=== PATIENT | male | born 1985 | race African-American/Black ===

== ENCOUNTER 2017-08-17 18:14 | Inpatient (IN) | payer OTHER ==
[2017-08-17 18:32] VITALS: BMI 25.2
[2017-08-17] MEDS ORDERED: MELATONIN 5 MG TABLETS PO PRN (22:00)
--- NOTE | 2017-08-17 22:36 | HP ---
CIWA Score - CIWA Score Nausea/Vomitin-Mild Nausea/No Vomiting Muscle Tremors: 4-Moderate,w/Arms Extend Anxiety: 4-Mod. Anxious/Guarded Agitation: 4-Moderately Restless Paroxysmal Sweats: No Perspiration Orientation: 0-Oriented Tacttile Disturbances: 0-None Auditory Disturbances: 0-None Visual Disturbances: 0-None Headache: 3-Moderate CIWA-Ar Total Score: 16 Admission ROS S - HPI Chief Complaint: Alcohol withdrawal symptoms Allergies/Adverse Reactions: Allergies Allergy/AdvReac Type Severity Reaction Status Date / Time No Known Allergies Allergy Verified 08/17/17 22:01 History of Present Illness: 31 years old m oliver with a long history of alcohol dependence is seeking admission to detox. Patient has been in previous detox at [facility] and reports 3 years of sobriety. He has medical history of depression, reports feeling anxious and denies suicide attempt or suicidal ideation at this time. Exam Limitations: No Limitations - Ebola screening Have you traveled outside of the country in the last 21 days: No Have you had contact with anyone from an Ebola affected area: No Have you been sick,other than usual withdrawal symptoms: No - Review of Systems Constitutional: Chills, Malaise, Night Sweats, Changes in sleep EENT: reports: No Symptoms Reported Respiratory: reports: No Symptoms reported Cardiac: reports: No Symptoms Reported GI: reports: Nausea, Poor Appetite, Poor Fluid Intake, Abdominal cramping : reports: No Symptoms Reported Musculoskeletal: reports: No Symptoms Reported Integumentary: reports: No Symptoms Reported Neuro: reports: Headache, Tingling, Tremors Endocrine: reports: No Symptoms Reported Hematology: reports: No Symptoms Reported Psychiatric: reports: Orientated x3, Anxious, Depressed Other Systems: Reviewed and Negative Patient History - Patient Medical History Hx Anemia: No Hx Asthma: No Hx Chronic Obstructive Pulmonary Disease (COPD): No Hx Cancer: No Hx Cardiac Disorders: No Hx Congestive Heart Failure: No Hx Hypertension: No Hx Hypercholesterolemia: No HX Cerebrovascular Accident: No Hx Seizures: No Hx Diabetes: No Hx Gastrointestinal Disorders: No Hx Sexually Transmitted Disorders: No Hx Renal Disease (ESRD): No Hx Thyroid Disease: No Hx Human Immunodeficiency Virus (HIV): No (Negative 2013) Hx Hepatitis C: No Hx Depression: Yes (Not on medication) Hx Suicide Attempt: No (Denies suicide attempt and suicidal ideation at this time) Hx Bipolar Disorder: No Hx Schizophrenia: No - Patient Surgical History Past Surgical History: No - PPD History Previous Implant?: No (PPD POSITVE. 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 History Hx Alcohol Use: Yes Hx Substance Use: Yes Substance Use Type: Alcohol, Cocaine, Marijuana Hx Substance Use Treatment: Yes ([facility]) - Substances Abused Alcohol Route: Oral Frequency: Daily Amount used: 2 PINT LIQUOR, 2/40oz BEER Age of first use: 14 Date of Last Use: 08/17/17 Cocaine Route: Oral Frequency: Daily Amount used: 1 1/2 GRAM Age of first use: 20 Date of Last Use: 08/17/17 Marijuana/Hashish Route: Smoking Frequency: 3-6 times per week Amount used: $10 Age of first use: 14 Date of Last Use: 08/15/17 Family Disease History - Family Disease History Family History: Denies Admission Physical Exam [facility] - Vital Signs Vital Signs: Vital Signs - 24 hr 08/17/17 18:31 Temperature 97.7 F Pulse Rate 77 Respiratory 18 Rate Blood Pressure 127/77 - Physical General Appearance: Yes: Moderate Distress, Tremorous, Irritable, Sweating, Anxious HEENTM: Yes: EOMI, Normal ENT Inspection, Normal Voice Respiratory: Yes: Lungs Clear, Normal Breath Sounds, No Respiratory Distress Neck: Yes: Supple Breast: Yes: Breast Exam Deferred Cardiology: Yes: Regular Rhythm, Regular Rate, S1, S2 Abdominal: Yes: Normal Bowel Sounds, Soft Genitourinary: Yes: Within Normal Limits Back: Yes: Normal Inspection Musculoskeletal: Yes: Within Normal Limits Extremities: Yes: Tremors Neurological: Yes: Alert, Normal Mood/Affect Integumentary: Yes: Warm Lymphatic: Yes: Within Normal Limits - Diagnostic (1) Alcohol dependence with uncomplicated withdrawal Current Visit: Yes Status: Chronic (2) Depression Current Visit: Yes Status: Chronic Qualifiers: Depression Type: unspecified Qualified Code(s): F32.9 - Major depressive disorder, single episode, unspecified (3) Anxiety Current Visit: Yes Status: Chronic (4) Cannabis dependence, uncomplicated Current Visit: Yes Status: Chronic (5) Cocaine dependence, uncomplicated Current Visit: Yes Status: Chronic Cleared for Admission [facility] - Detox or Rehab [facility] Level of Care: Medically Managed Detox Regimen/Protocol: Librium [facility] Breath Alcohol Content Breath Alcohol Content: 0.022 Urine Drug Screen - Results Drug Screen Negative: No Urine Drug Screen Results: THC-Marijuana, HEATHER-Cocaine
[2017-08-17] MEDS ORDERED: P-EPHED 60MG/TRIPROLIDI 2.5MG TABLET PO PRN (22:48)
[2017-08-17] MEDS ORDERED: LOPERAMIDE HCL 2 MG CAPSULE PO PRN (22:48)
[2017-08-17] MEDS ORDERED: MAGNESIUM CITRATE 300 ML BOTTLE PO PRN (22:48)
[2017-08-17] MEDS ORDERED: MAG HYDROX/AL HYDROX/SIMETH 30 ML UNIT-DOSE CUP PO PRN (22:48)
[2017-08-17] MEDS ORDERED: guaiFENesin/D-METHORPHAN HB 10 ML UNIT-DOSE CUPS PO PRN (22:48)
[2017-08-17] MEDS ORDERED: MAGNESIUM HYDROX 2400MG/30ML ORAL SUSPENSION 30 ML CUP PO PRN (22:48)
[2017-08-17] MEDS ORDERED: NICOTINE POLACRILEX 2 MG GUM BC PRN (22:48)
[2017-08-17] MEDS ORDERED: IBUPROFEN 400 MG TABLET (FP) PO PRN (22:48)
[2017-08-17] MEDS ORDERED: MENTHOL/PHENOL 1 EACH UD MM PRN (22:48)
[2017-08-17] MEDS ORDERED: ACETAMINOPHEN 325 MG TABLET (FP) PO PRN (22:48)
[2017-08-17] MEDS ORDERED: chlordiazePOXIDE HCL 25 MG CAPSULE PO PRN (22:48)
[2017-08-17] MEDS: chlordiazePOXIDE HCL 25 MG CAPSULE PO SCH (23:31)
[2017-08-18 03:36] LABS: URINE APPEARANCE TURBID; URINE BILIRUBIN NEGATIVE (<2.0 mg/dL); URINE BLOOD 1+ (NEGATIVE); URINE COLOR YELLOW; URINE GLUCOSE (UA) NEGATIVE (NEGATIVE); URINE KETONE NEGATIVE (NEGATIVE); URINE LEUK ESTERASE NEGATIVE (NEGATIVE); URINE NITRITE NEGATIVE (NEGATIVE)
[2017-08-18 03:45] LABS: URINE PROTEIN 1+ (NEGATIVE)
[2017-08-18 03:48] LABS: URINE MUCUS MODERATE
[2017-08-18] MEDS: chlordiazePOXIDE HCL 25 MG CAPSULE PO SCH ×4 (05:53→22:42)
[2017-08-18] MEDS: NICOTINE 14 MG/24 HOURS TOPICAL PATCH TD SCH (10:21)
[2017-08-18] MEDS: PRENATAL VITAMINS W/ FOLIC ACID TABLET (FP) PO SCH (10:21)
[2017-08-18 10:26] LABS: HEMATOCRIT 38.7 % (35.4-49); HEMOGLOBIN 12.9 GM/dL (11.7-16.9); MCH 30.6 pg (25.7-33.7); MCHC 33.4 g/dl (32.0-35.9); MEAN CELL VOLUME 91.6 fl (80-96); PLATELET COUNT 263 K/MM3 (134-434); RBC 4.23 M/mm3 (4.00-5.60); RDW 14.9 % (11.9-15.9); WHITE BLOOD COUNT 5.3 K/mm3 (4.0-10.0)
[2017-08-18 11:58] LABS: ALK PHOS 56 U/L (45-117); ANION GAP 6 (8-16); BILIRUBIN,TOTAL 0.4 mg/dL (0.2-1.0); BLOOD UREA NITROGEN 19 mg/dL (7-18); CALCIUM 8.5 mg/dL (8.5-10.1); CHLORIDE 106 mmol/L (98-107); CO2 29 mmol/L (21-32); CREATININE 0.9 mg/dL (0.7-1.3); GLUCOSE,RANDOM 98 mg/dL (74-106); POTASSIUM 3.6 mmol/L (3.5-5.1); SGOT/AST 42 U/L (15-37); SGPT/ALT 30 U/L (12-78); SODIUM 141 mmol/L (136-145); TOT PROT 5.9 g/dl (6.4-8.2)
--- NOTE | 2017-08-18 12:59 | PN ---
[facility] CIWA - CIWA Score Nausea/Vomitin-No Nausea/No Vomiting Muscle Tremors: 4-Moderate,w/Arms Extend Anxiety: 3 Agitation: 3 Paroxysmal Sweats: 3 Orientation: 2-Disoriented Date<2 days Tacttile Disturbances: 0-None Auditory Disturbances: 2-Mild Harshness/Frighten Visual Disturbances: 0-None Headache: 0-None Present CIWA-Ar Total Score: 17 BHS Progress Note (SOAP) Subjective: Stomach Cramping, Tremors, Body Aches, Sweating. Objective: PATIENT A & O X 2 (UNCERTAIN ABOUT CURRENT DAY / DATE). PATIENT OBSERVED AMBULATING ON UNIT. NO ACUTE DISTRESS. 08/18/17 12:57 Vital Signs Temperature 96.4 F L 08/18/17 09:12 Pulse Rate 63 08/18/17 09:12 Respiratory Rate 16 08/18/17 09:12 Blood Pressure 100/62 08/18/17 09:12 O2 Sat by Pulse Oximetry (%) Laboratory Tests 08/17/17 08/18/17 08/18/17 23:14 07:30 07:30 WBC 5.3 RBC 4.23 Hgb 12.9 Hct 38.7 MCV 91.6 MCH 30.6 MCHC 33.4 RDW 14.9 Plt Count 263 MPV 9.0 Sodium 141 Potassium 3.6 Chloride 106 Carbon Dioxide 29 Anion Gap 6 L BUN 19 H Creatinine 0.9 Creat Clearance w eGFR > 60 Random Glucose 98 Calcium 8.5 Total Bilirubin 0.4 AST 42 H ALT 30 Alkaline Phosphatase 56 Total Protein 5.9 L Albumin 3.0 L Urine Color Yellow Urine Appearance Turbid Urine pH 5.0 Ur Specific [place] 1.032 Urine Protein 1+ H Urine Glucose (UA) Negative Urine Ketones Negative Urine Blood 1+ H Urine Nitrite Negative Urine Bilirubin Negative Urine Urobilinogen 2.0 Ur Leukocyte Esterase Negative Urine WBC (Auto) None Urine RBC (Auto) 9 Urine Mucus Moderate RPR Titer 08/18/17 07:30 WBC RBC Hgb Hct MCV MCH MCHC RDW Plt Count MPV Sodium Potassium Chloride Carbon Dioxide Anion Gap BUN Creatinine Creat Clearance w eGFR Random Glucose Calcium Total Bilirubin AST ALT Alkaline Phosphatase Total Protein Albumin Urine Color Urine Appearance Urine pH Ur Specific [place] Urine Protein Urine Glucose (UA) Urine Ketones Urine Blood Urine Nitrite Urine Bilirubin Urine Urobilinogen Ur Leukocyte Esterase Urine WBC (Auto) Urine RBC (Auto) Urine Mucus RPR Titer Nonreactive LABS NOTED. Assessment: 08/18/17 12:57 WITHDRAWAL SYMPTOMS. Plan: CONTINUE DETOX. INCREASE DAILY PO FLUID INTAKE. REPEAT UA.
--- NOTE | 2017-08-18 14:38 | CONSULT ---
[facility] Psychiatric Consult - Data Date of interview: 08/18/17 Admission source: [facility] Identifying data: First admission to [facility] for this 31 y/o male ( declines to disclose country of origin) seeking detox treatment on for alcohol,cannabis and cocaine dependence.Patient is single without children, domiciled,unemployed and supported by relatives. Substance Abuse History: Confirmed by patient in this interview.Details in current [facility] report : Smoking history: Current some day smoker. Have you smoked in the past 12 months: Yes. Aproximately how many cigarettes per day: 4. Hx Chewing Tobacco Use: No. Initiated information on smoking cessation: Yes. ' Breaking Loose' booklet given: 08/17/17. - Substance & Tx. History. Hx Alcohol Use: Yes. Hx Substance Use: Yes. Substance Use Type: Alcohol, Cocaine , Marijuana. Hx Substance Use Treatment: Yes ([facility]). - Substances Abused. Alcohol. Route: Oral. Frequency: Daily. Amount used: 2 PINT LIQUOR, 2/40oz BEER. Age of first use: 14. Date of Last Use: . Cocaine. Route: Oral. Frequency: Daily. Amount used: 1 1/2 GRAM. Age of first use: 20. Date of Last Use: 08/17/17. Marijuana/Hashish. Route : Smoking. Frequency: 3-6 times per week. Amount used: $10. Age of first use : 14. Date of Last Use: 08/15/17 Medical History: Patient endorses good general health.Noted history of treatment with [facility] (positive PPD) for 12 months. Psychiatric History: Patient denies. Physical/Sexual Abuse/Trauma History: Patient denies. Additional Comment: Urine Drug Screen Results: THC-Marijuana, HEATHER-Cocaine.Noted. Mental Status Exam - Mental Status Exam Alert and Oriented to: Time, Place, Person Cognitive Function: Good Patient Appearance: Well Groomed Mood: Withdrawn, Hopeful, Euthymic Affect: Appropriate, Normal Range Patient Behavior: Fatigued, Appropriate, Cooperative Speech Pattern: Clear (bilingual : swedish + amharic), Appropriate Voice Loudness: Normal Thought Process: Intact, Goal Oriented Thought Disorder: Not Present Hallucinations: Denies Suicidal Ideation: Denies Homicidal Ideation: Denies Insight/Judgement: Poor Sleep: Poorly, Difficulty falling asleep Appetite: Good Muscle strength/Tone: Normal Gait/Station: Normal Psychiatric Findings - Problem List ([place] 1, 2,3) (1) Alcohol dependence with uncomplicated withdrawal Current Visit: Yes Status: Acute (2) Cannabis dependence, uncomplicated Current Visit: Yes Status: Acute (3) Cocaine dependence, uncomplicated Current Visit: Yes Status: Acute (4) Nicotine dependence Current Visit: Yes Status: Acute (5) Insomnia Current Visit: Yes Status: Acute - Initial Treatment Plan Initial Treatment Plan: Psychoeducation.Sleep hygiene discussed.Detoxification in progress.Ambien 10 mg po hs prn.Patient is made aware of risk of parasomnias (sleep-walking).Mr Rowell agrees with this careplan.Observation.
--- NOTE | 2017-08-18 16:27 | EKG ---
Test Reason : Blood Pressure : / mmHG Vent. Rate : 060 BPM Atrial Rate : 060 BPM P-R Int : 210 ms QRS Dur : 078 ms QT Int : 428 ms P-R-T Axes : -19 -20 -09 degrees QTc Int : 428 ms SINUS RHYTHM WITH SINUS ARRHYTHMIA WITH 1ST DEGREE A-V BLOCK OTHERWISE NORMAL ECG NO PREVIOUS ECGS AVAILABLE Confirmed by MD YVROSE, JAN ([id number]) on 08/18/2017 4:26:42 PM Referred By: Confirmed By:JAN FRANCES MD
[2017-08-18] MEDS: THIAMINE HCL 100 MG TABLET (FP) PO SCH (22:42)
[2017-08-18] MEDS: ZOLPIDEM TARTRATE 10 MG TABLET (PARK CARE ONLY) PO PRN (22:42)
[2017-08-19] MEDS: chlordiazePOXIDE HCL 25 MG CAPSULE PO SCH ×3 (05:43→17:29)
[2017-08-19] MEDS: NICOTINE 14 MG/24 HOURS TOPICAL PATCH TD SCH (10:43)
[2017-08-19] MEDS: PRENATAL VITAMINS W/ FOLIC ACID TABLET (FP) PO SCH (10:43)
--- NOTE | 2017-08-19 13:32 | PN ---
[facility] CIWA - CIWA Score Nausea/Vomitin-No Nausea/No Vomiting Muscle Tremors: 4-Moderate,w/Arms Extend Anxiety: 4-Mod. Anxious/Guarded Agitation: 4-Moderately Restless Paroxysmal Sweats: 1-Minimal Palms Moist Orientation: 0-Oriented Tacttile Disturbances: 0-None Auditory Disturbances: 0-None Visual Disturbances: 0-None Headache: 0-None Present CIWA-Ar Total Score: 13 S Progress Note (SOAP) Subjective: ANXIETY,SWEATS,TREMORS. Objective: 08/19/17 13:32 Vital Signs Temperature 97.2 F L 08/19/17 10:57 Pulse Rate 75 08/19/17 10:57 Respiratory Rate 18 08/19/17 10:57 Blood Pressure 123/70 08/19/17 10:57 O2 Sat by Pulse Oximetry (%) Laboratory Last Values WBC 5.3 K/mm3 (4.0-10.0) 08/18/17 07:30 RBC 4.23 M/mm3 (4.00-5.60) 08/18/17 07:30 Hgb 12.9 GM/dL (11.7-16.9) 08/18/17 07:30 Hct 38.7 % (35.4-49) 08/18/17 07:30 MCV 91.6 fl (80-96) 08/18/17 07:30 MCH 30.6 pg (25.7-33.7) 08/18/17 07:30 MCHC 33.4 g/dl (32.0-35.9) 08/18/17 07:30 RDW 14.9 % (11.9-15.9) 08/18/17 07:30 Plt Count 263 K/MM3 (134-434) 08/18/17 07:30 MPV 9.0 fl (7.5-11.1) 08/18/17 07:30 Sodium 141 mmol/L (136-145) 08/18/17 07:30 Potassium 3.6 mmol/L (3.5-5.1) 08/18/17 07:30 Chloride 106 mmol/L (98-107) 08/18/17 07:30 Carbon Dioxide 29 mmol/L (21-32) 08/18/17 07:30 Anion Gap 6 (8-16) L 08/18/17 07:30 BUN 19 mg/dL (7-18) H 08/18/17 07:30 Creatinine 0.9 mg/dL (0.7-1.3) 08/18/17 07:30 Creat Clearance w eGFR > 60 (>60) 08/18/17 07:30 Random Glucose 98 mg/dL (74-106) 08/18/17 07:30 Calcium 8.5 mg/dL (8.5-10.1) 08/18/17 07:30 Total Bilirubin 0.4 mg/dL (0.2-1.0) 08/18/17 07:30 AST 42 U/L (15-37) H 08/18/17 07:30 ALT 30 U/L (12-78) 08/18/17 07:30 Alkaline Phosphatase 56 U/L (45-117) 08/18/17 07:30 Total Protein 5.9 g/dl (6.4-8.2) L 08/18/17 07:30 Albumin 3.0 g/dl (3.4-5.0) L 08/18/17 07:30 Urine Color Yellow 08/17/17 23:14 Urine Appearance Turbid 08/17/17 23:14 Urine pH 5.0 (5.0-8.0) 08/17/17 23:14 Ur Specific [place] 1.032 (1.001-1.035) 08/17/17 23:14 Urine Protein 1+ (NEGATIVE) H 08/17/17 23:14 Urine Glucose (UA) Negative (NEGATIVE) 08/17/17 23:14 Urine Ketones Negative (NEGATIVE) 08/17/17 23:14 Urine Blood 1+ (NEGATIVE) H 08/17/17 23:14 Urine Nitrite Negative (NEGATIVE) 08/17/17 23:14 Urine Bilirubin Negative (<2.0 mg/dL) 08/17/17 23:14 Urine Urobilinogen 2.0 mg/dL (0.2-1.0) 08/17/17 23:14 Ur Leukocyte Esterase Negative (NEGATIVE) 08/17/17 23:14 Urine WBC (Auto) None /hpf (3-5) 08/17/17 23:14 Urine RBC (Auto) 9 /hpf (0-3) 08/17/17 23:14 Urine Mucus Moderate 08/17/17 23:14 RPR Titer Nonreactive (NONREACTIVE) 08/18/17 07:30 Assessment: 08/19/17 13:32 WITHDRAWAL SX Plan: CONTINUE DETOX
[2017-08-19] MEDS: THIAMINE HCL 100 MG TABLET (FP) PO SCH (22:21)
[2017-08-19] MEDS: chlordiazePOXIDE 5 MG CAPSULE PO SCH (22:21)
[2017-08-19] MEDS: ZOLPIDEM TARTRATE 10 MG TABLET (PARK CARE ONLY) PO PRN (22:23)
[2017-08-20] MEDS: chlordiazePOXIDE 5 MG CAPSULE PO SCH ×3 (05:40→17:31)
[2017-08-20] MEDS: PRENATAL VITAMINS W/ FOLIC ACID TABLET (FP) PO SCH (10:29)
[2017-08-20] MEDS: NICOTINE 14 MG/24 HOURS TOPICAL PATCH TD SCH (10:30)
[2017-08-20] MEDS ORDERED: LIDOCAINE VISCOUS 2% ORAL/TOP 20 ML UNIT-DOSE CUP MM PRN (12:37)
[2017-08-20] MEDS: AMOXICILLIN 500 MG CAPSULE (FP) PO SCH ×2 (14:16→22:20)
--- NOTE | 2017-08-20 14:48 | PN ---
S Progress Note (SOAP) Subjective: ALERT O X 3. OOB AMBULATING ON HALLWAYS WITH STEADY GAIT. PT C/O PAIN TO LEFT UPPER MOLARS. HX CAVITIES AND TOOTH DECAY. REPORTS WILL GO TO THE DENTIST TO TAKE IT OUT AFTER DETOX. Objective: 08/20/17 14:44 Vital Signs Temperature 97.7 F 08/20/17 13:56 Pulse Rate 68 08/20/17 13:56 Respiratory Rate 18 08/20/17 13:56 Blood Pressure 113/74 08/20/17 13:56 O2 Sat by Pulse Oximetry (%) Laboratory Last Values WBC 5.3 K/mm3 (4.0-10.0) 08/18/17 07:30 RBC 4.23 M/mm3 (4.00-5.60) 08/18/17 07:30 Hgb 12.9 GM/dL (11.7-16.9) 08/18/17 07:30 Hct 38.7 % (35.4-49) 08/18/17 07:30 MCV 91.6 fl (80-96) 08/18/17 07:30 MCH 30.6 pg (25.7-33.7) 08/18/17 07:30 MCHC 33.4 g/dl (32.0-35.9) 08/18/17 07:30 RDW 14.9 % (11.9-15.9) 08/18/17 07:30 Plt Count 263 K/MM3 (134-434) 08/18/17 07:30 MPV 9.0 fl (7.5-11.1) 08/18/17 07:30 Sodium 141 mmol/L (136-145) 08/18/17 07:30 Potassium 3.6 mmol/L (3.5-5.1) 08/18/17 07:30 Chloride 106 mmol/L (98-107) 08/18/17 07:30 Carbon Dioxide 29 mmol/L (21-32) 08/18/17 07:30 Anion Gap 6 (8-16) L 08/18/17 07:30 BUN 19 mg/dL (7-18) H 08/18/17 07:30 Creatinine 0.9 mg/dL (0.7-1.3) 08/18/17 07:30 Creat Clearance w eGFR > 60 (>60) 08/18/17 07:30 Random Glucose 98 mg/dL (74-106) 08/18/17 07:30 Calcium 8.5 mg/dL (8.5-10.1) 08/18/17 07:30 Total Bilirubin 0.4 mg/dL (0.2-1.0) 08/18/17 07:30 AST 42 U/L (15-37) H 08/18/17 07:30 ALT 30 U/L (12-78) 08/18/17 07:30 Alkaline Phosphatase 56 U/L (45-117) 08/18/17 07:30 Total Protein 5.9 g/dl (6.4-8.2) L 08/18/17 07:30 Albumin 3.0 g/dl (3.4-5.0) L 08/18/17 07:30 Urine Color Yellow 08/17/17 23:14 Urine Appearance Turbid 08/17/17 23:14 Urine pH 5.0 (5.0-8.0) 08/17/17 23:14 Ur Specific [place] 1.032 (1.001-1.035) 08/17/17 23:14 Urine Protein 1+ (NEGATIVE) H 08/17/17 23:14 Urine Glucose (UA) Negative (NEGATIVE) 08/17/17 23:14 Urine Ketones Negative (NEGATIVE) 08/17/17 23:14 Urine Blood 1+ (NEGATIVE) H 08/17/17 23:14 Urine Nitrite Negative (NEGATIVE) 08/17/17 23:14 Urine Bilirubin Negative (<2.0 mg/dL) 08/17/17 23:14 Urine Urobilinogen 2.0 mg/dL (0.2-1.0) 08/17/17 23:14 Ur Leukocyte Esterase Negative (NEGATIVE) 08/17/17 23:14 Urine WBC (Auto) None /hpf (3-5) 08/17/17 23:14 Urine RBC (Auto) 9 /hpf (0-3) 08/17/17 23:14 Urine Mucus Moderate 08/17/17 23:14 RPR Titer Nonreactive (NONREACTIVE) 08/18/17 07:30 SWELLING TO UPPERCHEEK/JAW. PAIN ON PALPATION . TEETH DECAYED AND EXPOSED. Assessment: 08/20/17 14:44 WITHDRAWAL SX TOOTH ABSCESS Plan: CONTINUE DETOX AMOXICILLIN 500 MG PO TID LIDOCAINE SWISH DIRECTED.
[2017-08-20] MEDS: chlordiazePOXIDE HCL 10 MG CAPSULE PO SCH (22:20)
[2017-08-20] MEDS: THIAMINE HCL 100 MG TABLET (FP) PO SCH (22:20)
[2017-08-21 06:17] VITALS: BP 105/66; PULSE 70; TEMP 96.6
[2017-08-21] MEDS: AMOXICILLIN 500 MG CAPSULE (FP) PO SCH (06:23)
[2017-08-21] MEDS: chlordiazePOXIDE HCL 10 MG CAPSULE PO SCH (06:23)
--- NOTE | 2017-08-21 17:12 | PN ---
BHS Progress Note (SOAP) Subjective: Patient denies current Detox symptoms and reports that he feels well overall. Objective: PATIENT A & O X 3, OBSERVED AMBULATING ON UNIT. NO ACUTE DISTRESS. 08/21/17 17:11 Vital Signs Temperature 96.6 F L 08/21/17 06:17 Pulse Rate 70 08/21/17 06:17 Respiratory Rate 18 08/21/17 06:17 Blood Pressure 105/66 08/21/17 06:17 O2 Sat by Pulse Oximetry (%) Laboratory Tests 08/17/17 08/18/17 08/18/17 23:14 07:30 07:30 WBC 5.3 RBC 4.23 Hgb 12.9 Hct 38.7 MCV 91.6 MCH 30.6 MCHC 33.4 RDW 14.9 Plt Count 263 MPV 9.0 Sodium 141 Potassium 3.6 Chloride 106 Carbon Dioxide 29 Anion Gap 6 L BUN 19 H Creatinine 0.9 Creat Clearance w eGFR > 60 Random Glucose 98 Calcium 8.5 Total Bilirubin 0.4 AST 42 H ALT 30 Alkaline Phosphatase 56 Total Protein 5.9 L Albumin 3.0 L Urine Color Yellow Urine Appearance Turbid Urine pH 5.0 Ur Specific [place] 1.032 Urine Protein 1+ H Urine Glucose (UA) Negative Urine Ketones Negative Urine Blood 1+ H Urine Nitrite Negative Urine Bilirubin Negative Urine Urobilinogen 2.0 Ur Leukocyte Esterase Negative Urine WBC (Auto) None Urine RBC (Auto) 9 Urine Mucus Moderate RPR Titer 08/18/17 07:30 WBC RBC Hgb Hct MCV MCH MCHC RDW Plt Count MPV Sodium Potassium Chloride Carbon Dioxide Anion Gap BUN Creatinine Creat Clearance w eGFR Random Glucose Calcium Total Bilirubin AST ALT Alkaline Phosphatase Total Protein Albumin Urine Color Urine Appearance Urine pH Ur Specific [place] Urine Protein Urine Glucose (UA) Urine Ketones Urine Blood Urine Nitrite Urine Bilirubin Urine Urobilinogen Ur Leukocyte Esterase Urine WBC (Auto) Urine RBC (Auto) Urine Mucus RPR Titer Nonreactive LABS NOTED. Assessment: 08/21/17 17:22 COMPLETION OF DETOX REGIMEN. Plan: PATIENT SCHEDULED FOR DISCHARGE FROM DETOX TODAY.
--- NOTE | 2017-08-21 17:29 | DS ---
[facility] Detox Discharge Summary Admission Date: 08/17/17 Discharge Date: 08/21/17 - History Present History: Alcohol Dependence, Cannabis Dependence, Cocaine Dependence Additional Comments: PATIENT GOING TO [facility] ([place], [place] FOR AFTERCARE. PRESCRIPTION FOR REMAINDER OF COURSE OF AUGMENTIN STARTED FOR DENTAL ABSCESS WHILE PATIENT WAS ADMITTED FOR DETOX SENT TO [facility] ( [facility] FOR PATIENT TO CHIEF MATE FOR FOLLOW-UP AFTERCARE. PATIENT ADVISED TO FOLLOW-UP WITH DENTIST AFTER DISCHARGE FROM DETOX FOR FURTHER EVALUATION OF DENTAL ABSCESS. PATIENT WAS DISCHARGED FROM DETOX UNIT IN STABLE MEDICAL CONDITION. Pertinent Past History: Depression, Anxiety, Insomnia, Nicotine Dependence. - Physical Exam Results Vital Signs: Vital Signs Temperature 96.6 F L 08/21/17 06:17 Pulse Rate 70 08/21/17 06:17 Respiratory Rate 18 08/21/17 06:17 Blood Pressure 105/66 08/21/17 06:17 O2 Sat by Pulse Oximetry (%) Pertinent Admission Physical Exam Findings: WITHDRAWAL SYMPTOMS. Laboratory Tests 08/17/17 08/18/17 08/18/17 23:14 07:30 07:30 WBC 5.3 RBC 4.23 Hgb 12.9 Hct 38.7 MCV 91.6 MCH 30.6 MCHC 33.4 RDW 14.9 Plt Count 263 MPV 9.0 Sodium 141 Potassium 3.6 Chloride 106 Carbon Dioxide 29 Anion Gap 6 L BUN 19 H Creatinine 0.9 Creat Clearance w eGFR > 60 Random Glucose 98 Calcium 8.5 Total Bilirubin 0.4 AST 42 H ALT 30 Alkaline Phosphatase 56 Total Protein 5.9 L Albumin 3.0 L Urine Color Yellow Urine Appearance Turbid Urine pH 5.0 Ur Specific [place] 1.032 Urine Protein 1+ H Urine Glucose (UA) Negative Urine Ketones Negative Urine Blood 1+ H Urine Nitrite Negative Urine Bilirubin Negative Urine Urobilinogen 2.0 Ur Leukocyte Esterase Negative Urine WBC (Auto) None Urine RBC (Auto) 9 Urine Mucus Moderate RPR Titer 08/18/17 07:30 WBC RBC Hgb Hct MCV MCH MCHC RDW Plt Count MPV Sodium Potassium Chloride Carbon Dioxide Anion Gap BUN Creatinine Creat Clearance w eGFR Random Glucose Calcium Total Bilirubin AST ALT Alkaline Phosphatase Total Protein Albumin Urine Color Urine Appearance Urine pH Ur Specific [place] Urine Protein Urine Glucose (UA) Urine Ketones Urine Blood Urine Nitrite Urine Bilirubin Urine Urobilinogen Ur Leukocyte Esterase Urine WBC (Auto) Urine RBC (Auto) Urine Mucus RPR Titer Nonreactive LABS NOTED. - Treatment Hospital Course: Detox Protocol Followed, Detoxed Safely, Responded well, Discharged Condition Good Patient has Accepted a Rehab Referral to: PT GOING TO [facility] ([place], [place] - Medication Discharge Medications: Ambulatory Orders Amoxicillin - [Amoxicillin 500mg Capsule -] 500 mg PO TID 7 Days #21 capsule - Diagnosis (1) Alcohol dependence with uncomplicated withdrawal Status: Acute (2) Anxiety Status: Chronic (3) Cannabis dependence, uncomplicated Status: Acute (4) Cocaine dependence, uncomplicated Status: Acute (5) Depression Status: Chronic Qualifiers: Depression Type: unspecified Qualified Code(s): F32.9 - Major depressive disorder, single episode, unspecified (6) Insomnia Status: Acute Qualifiers: Insomnia type: unspecified Qualified Code(s): G47.00 - Insomnia, unspecified (7) Nicotine dependence Status: Acute Qualifiers: Nicotine product type: cigarettes Substance use status: in withdrawal Qualified Code(s): F17.213 - Nicotine dependence, cigarettes, with withdrawal (8) Tooth abscess Status: Acute - AMA Did Patient Leave Against Medical Advice: No
== END 2017-08-21 09:09 | disposition home or self-care (01) | DRG 774 ==
LOC: YASAS 18:14 → Y3N 21:24
PROVIDERS: ADMIT Internal Medicine; ATTEND Internal Medicine
PROC: HZ2ZZZZ Detoxification Services for Substance Abuse Treatment (ICD-10-PCS; principal; 2017-08-17)
DX: F10.230 Alcohol dependence with withdrawal, uncomplicated (principal); F14.20 Cocaine dependence, uncomplicated; F12.20 Cannabis dependence, uncomplicated; F17.213 Nicotine dependence, cigarettes, with withdrawal; F32.9 Major depressive disorder, single episode, unspecified; F41.9 Anxiety disorder, unspecified; G47.00 Insomnia, unspecified; K04.7 Periapical abscess without sinus; Z59.0 Homelessness
CPT/HCPCS: 36415; 71046-TC-FY; 80053; 81003; 81015; 85027; 86593; 93005; 93010

== ENCOUNTER 2019-11-14 14:43 | Inpatient (IN) | payer OTHER ==
--- NOTE | 2019-11-14 15:05 | BHS.RME ---
Substance Use & Tx History - Substance Use History Alcohol Substance amount: 2/5 Vodka Frequency of use: Daily Substance route: Oral Date of Last Use: 11/14/19 (First use: age 13 y. No seizure. Blackouts, last blackout one month ago. 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) Cocaine-Crack Substance amount: one gram Frequency of use: More than 3 times per week Substance route: Smoking Date of Last Use: 11/13/19 (First use age 23 y) Cannabis Substance amount: one joint Frequency of use: Less than 3 times per week Substance route: Smoking Date of Last Use: 11/09/19 (First use age 13 y) Nicotine Substance amount: 2 cigs Frequency of use: Daily Substance route: Smoking Date of Last Use: 11/14/19 (First use age 13 y) Physical/Psych/Mental Status - Behavior General Behavior: Increased activity (restlessness, agitation) Eye Contact: Normal - Cooperativeness Cooperativeness: Cooperative - Thinking Thought Processes: Tight Thought content: Future oriented - Physical Health Problems Is patient presently having any pain?: No Does patient presently have any injuries (include location): No Does patient currently have a fever: No CIWA Nausea/Vomitin-Mild Nausea/No Vomiting Muscle Tremors: 1-None Visible, but [place] Anxiety: 3 Agitation: 3 Paroxysmal Sweats: 3 Orientation: 1-Uncertain about Date Tacttile Disturbances: 0-None Auditory Disturbances: 0-None Visual Disturbances: 0-None Headache: 0-None Present CIWA-Ar Total Score: 12
[2019-11-14 15:45] VITALS: BMI 24.3
--- NOTE | 2019-11-14 16:43 | HP ---
CIWA Score Nausea/Vomitin-No Nausea/No Vomiting Muscle Tremors: 2 Anxiety: 3 Agitation: 3 Paroxysmal Sweats: 3 (Increased facial moisture) Orientation: 1-Uncertain about Date Tacttile Disturbances: 0-None Auditory Disturbances: 0-None Visual Disturbances: 0-None Headache: 0-None Present CIWA-Ar Total Score: 12 - Admission Criteria [facility] Guidelines: Admission for Medically Managed Detox: Requires at least one of the followin. CIWA greater than 12 2. Seizures within the past 24 hours 3. Delirium tremens within the past 24 hours 4. Hallucinations within the past 24 hours 5. Acute intervention needed for co occurring medical disorder 6. Acute intervention needed for co occurring psychiatric disorder 7. Severe withdrawal that cannot be handled at a lower level of care (continued vomiting, continued diarrhea, abnormal vital signs) requiring intravenous medication and/or fluids 8. Patient presents the following: CIWA greater than 12 (YASMIN: 0.046) Admission Criteria Met: Admission criteria met Admitting History and Physical - Smoking History Smoking history: Current some day smoker Have you smoked in the past 12 months: Yes Aproximately how many cigarettes per day: 4 - Alcohol/Substance Use Hx Alcohol Use: Yes Admission ROS S - HPI Chief Complaint: "Here cause I'm tired of drinking and drugs. I just need to get sober." Allergies/Adverse Reactions: Allergies Allergy/AdvReac Type Severity Reaction Status Date / Time No Known Allergies Allergy Verified 11/14/19 18:40 History of Present Illness: 33 yo presents with alcohol intoxication and withdrawal symptoms, seeking detox. Last detox 6 months ago. States relapsed after 2.5 months. YASMIN: 0.046 UtOX: + BZO, HEATHER Patient denies BZO use or recent treatment. Feels it may be in the crack. Denies seizures or overdoses. Hx blackouts - last 1 month ago. Alcohol use began at age [age]. Currently drinking has increased to 2/5th vodka/day. Last drink about about 8 a.m. Crack/cocaine use began at age 23. Currently smokes 1 gm/4 days per week. Last used 11 pm yesterday. Nicotine use began at age [age]. Smokes about 2 cig/day PMHx: Denies MHHx: Feels stressed. Denies thoughts of harming self or others. SHx: Homeless. Unemployed. Denies lega issues. Search Terms: Lotus Rwoell, 1985 Search Date: 11/14/2019 16:44:31 PM The Drug Utilization Report below displays all of the controlled substance prescriptions, if any, that your patient has filled in the last twelve months. The information displayed on this report is compiled from pharmacy submissions to the Department, and accurately reflects the information as submitted by the pharmacies. This report was requested by: Izzy Griffiths | Reference #: [id number] There are no results for the search terms that you entered. Exam Limitations: No Limitations - Ebola screening Have you traveled outside of the country in the last 21 days: No (Denies COVID exposure) Have you had contact with anyone from an Ebola affected area: No Have you been sick,other than usual withdrawal symptoms: No Do you have a fever: No - Review of Systems Constitutional: Diaphoresis, Weight Stable EENT: reports: No Symptoms Reported Respiratory: reports: No Symptoms reported Cardiac: reports: No Symptoms Reported GI: reports: Nausea (Mild) : reports: No Symptoms Reported Musculoskeletal: reports: Other (General muscle aches) Integumentary: reports: No Symptoms Reported Neuro: reports: Tremors Endocrine: reports: Increased Thirst Hematology: reports: No Symptoms Reported Psychiatric: reports: Judgement Intact, Mood/Affect Appropiate, Agitated, Anxious Patient History - Patient Medical History Hx Anemia: No Hx Asthma: No Hx Chronic Obstructive Pulmonary Disease (COPD): No Hx Cancer: No Hx Cardiac Disorders: No Hx Congestive Heart Failure: No Hx Hypertension: No Hx Hypercholesterolemia: No HX Cerebrovascular Accident: No Hx Seizures: No Hx Diabetes: No Hx Gastrointestinal Disorders: No Hx Sexually Transmitted Disorders: No Hx Renal Disease (ESRD): No Hx Thyroid Disease: No Hx Human Immunodeficiency Virus (HIV): No (Negative 2013) Hx Hepatitis C: No Hx Depression: Yes (Not on medication) Hx Suicide Attempt: No (Denies suicide attempt and suicidal ideation at this time) Hx Bipolar Disorder: No Hx Schizophrenia: No - Patient Surgical History Past Surgical History: No - PPD History Previous Implant?: Yes Documented Results: Positive w/o proof (Hx: BCG vaccination) Implanted On Prior [facility] Admission?: No PPD to be Administered?: No - Smoking Cessation Smoking history: Current every day smoker Have you smoked in the past 12 months: Yes Aproximately how many cigarettes per day: 2 Hx Chewing Tobacco Use: No Initiated information on smoking cessation: Yes 'Breaking Loose' booklet given: 11/14/19 - Substance & Tx. History Hx Alcohol Use: Yes Hx Substance Use: Yes Substance Use Type: Alcohol, Cocaine Hx Substance Use Treatment: Yes (detox, rehab, AA) - Substances abused Alcohol Substance route: Oral Frequency: Daily Amount used: LIQUOR- 3 PINTS, BEER 1 PT Age of first use: 12 Date of last use: 11/13/19 Crack Substance route: Smoking Frequency: Daily Amount used: 1gm Age of first use: 19 Date of last use: 11/13/19 Admission Physical Exam BHS - Vital Signs Vital Signs: Vital Signs - 24 hr 11/14/19 15:42 Temperature 98.2 F Pulse Rate 74 Respiratory 16 Rate Blood Pressure 139/75 - Physical General Appearance: Yes: Nourished, Mild Distress, Tremorous (MILD), Sweating (Increased facial moisture), Anxious HEENTM: Yes: EOMI, Hearing grossly Normal, Normocephalic, Normal Voice, JULIO CÉSAR, Pharynx Normal, Other (Thickened, whitish saliva) Respiratory: Yes: Lungs Clear, Normal Breath Sounds, No Respiratory Distress Neck: Yes: No masses,lesions,Nodules, Supple Breast: Yes: Breast Exam Deferred Cardiology: Yes: Regular Rhythm, S1, S2, Bradycardia Abdominal: Yes: Non Tender, Flat, Soft, Increased Bowel Sounds Genitourinary: Yes: Within Normal Limits Back: Yes: Normal Inspection Musculoskeletal: Yes: full range of Motion, Gait Steady, Joint Stiffness ((R) ankle. 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 Decreased skin turgor) Lymphatic: Yes: Within Normal Limits - Diagnostic (1) Dehydration symptoms Current Visit: Yes Status: Acute (2) Alcohol dependence with uncomplicated withdrawal Current Visit: Yes Status: Acute (3) Cocaine dependence, uncomplicated Current Visit: Yes Status: Chronic Comment: Crack (4) Nicotine dependence Current Visit: Yes Status: Chronic Qualifiers: Nicotine product type: cigarettes Substance use status: uncomplicated Qualified Code(s): F17.210 - Nicotine dependence, cigarettes, uncomplicated (5) History of positive PPD Current Visit: Yes Status: Chronic Comment: Hx: BCG vaccination Cleared for Admission [facility] - Detox or Rehab [facility] Level of Care: Medically Managed Detox Regimen/Protocol: Librium Claeared for Rehab Admission: No Urine Drug Screen - Test Device Lot number: [id number] Expiration date: 12/26/19 - Control Is test valid?: Yes - Results Drug screen NEGATIVE: No Urine drug screen results: HEATHER-Cocaine, BZO-Benzodiazepines Inpatient Rehab Admission - Rehab Decision to Admit Inpatient rehab admission?: No
[2019-11-14] MEDS ORDERED: MAG HYDROX/AL HYDROX/SIMETH 30 ML UNIT-DOSE CUP PO PRN (17:29)
[2019-11-14] MEDS ORDERED: chlordiazePOXIDE HCL 25 MG CAPSULE PO PRN (17:29)
[2019-11-14] MEDS ORDERED: BISMUTH SUBSALICYLATE 524 MG/30 ML UD PO PRN (17:29)
[2019-11-14] MEDS ORDERED: MENTHOL/PHENOL 1 EACH UD MM PRN (17:29)
[2019-11-14] MEDS ORDERED: MAGNESIUM CITRATE 300 ML BOTTLE PO PRN (17:29)
[2019-11-14] MEDS ORDERED: ACETAMINOPHEN 325 MG TABLET (FP) PO PRN ×2 (17:29)
[2019-11-14] MEDS ORDERED: MAGNESIUM HYDROX 2400MG/30ML ORAL SUSPENSION 30 ML CUP PO PRN (17:29)
[2019-11-14] MEDS ORDERED: NICOTINE POLACRILEX 2 MG GUM BUC PRN (17:29)
[2019-11-14] MEDS ORDERED: IBUPROFEN 400 MG TABLET (FP) PO PRN (17:29)
[2019-11-14] MEDS ORDERED: ONDANSETRON *ODT* 4 MG TABLET SL ONE (17:29)
[2019-11-14] MEDS: MELATONIN 5 MG TABLETS PO SCH (22:53)
[2019-11-14] MEDS: THIAMINE HCL 100 MG TABLET (FP) PO SCH (22:53)
[2019-11-14] MEDS: chlordiazePOXIDE HCL 25 MG CAPSULE PO SCH (22:54)
[2019-11-15] MEDS: chlordiazePOXIDE HCL 25 MG CAPSULE PO SCH ×4 (06:15→22:04)
--- NOTE | 2019-11-15 11:11 | PN ---
S CIWA - CIWA Score Nausea/Vomitin-No Nausea/No Vomiting (`) Muscle Tremors: 3 Anxiety: 4-Mod. Anxious/Guarded Agitation: 2 Paroxysmal Sweats: 1-Minimal Palms Moist Orientation: 0-Oriented Tacttile Disturbances: 0-None Auditory Disturbances: 0-None Visual Disturbances: 0-None Headache: 0-None Present CIWA-Ar Total Score: 10 BHS Progress Note (SOAP) Subjective: Pt is a 33 y/o male admitted to detox for alcohol withdrawal sx. On Librium taper detox protocol. Objective: 11/15/19 11:09 Vital Signs - 8 hr 11/15/19 05:56 Temperature 98.4 F Pulse Rate 62 Respiratory 18 Rate Blood Pressure 102/65 O2 Sat by Pulse 96 Oximetry (%) labs pending covid-19 result pending Assessment: 11/15/19 11:10 withdrawal sx Plan: cont detox increase po fluids maintain safety
[2019-11-15] MEDS: PRENATAL VITAMINS W/ FOLIC ACID TABLET (FP) PO SCH (11:14)
[2019-11-15] MEDS: NICOTINE 7 MG/24 HOURS TOPICAL PATCH TD SCH (11:15)
--- NOTE | 2019-11-15 13:15 | EKG ---
Test Reason : Blood Pressure : / mmHG Vent. Rate : 066 BPM Atrial Rate : 066 BPM P-R Int : 198 ms QRS Dur : 084 ms QT Int : 432 ms P-R-T Axes : -03 -23 -13 degrees QTc Int : 452 ms NORMAL SINUS RHYTHM NONSPECIFIC T WAVE ABNORMALITY ABNORMAL ECG WHEN COMPARED WITH ECG OF 18-AUG-2017 06:07, NO SIGNIFICANT CHANGE WAS FOUND Confirmed by Alfonzo Denny ([id number]) on 11/15/2019 1:14:50 PM Referred By: Confirmed By:Alfonzo Denny
[2019-11-15] MEDS: METHOCARBAMOL 500 MG TABLET PO PRN (21:59)
[2019-11-15] MEDS: THIAMINE HCL 100 MG TABLET (FP) PO SCH (21:59)
[2019-11-15] MEDS: MELATONIN 5 MG TABLETS PO SCH (21:59)
[2019-11-16] MEDS: chlordiazePOXIDE HCL 25 MG CAPSULE PO SCH ×4 (06:14→22:18)
[2019-11-16 09:54] LABS: HEMATOCRIT 40.9 % (35.4-49); HEMOGLOBIN 13.5 GM/dL (11.7-16.9); MCH 31.6 pg (25.7-33.7); MCHC 33.2 g/dl (32.0-35.9); MEAN CELL VOLUME 95.2 fl (80-96); MEAN PLT VOLUME 9.5 fl (7.5-11.1); PLATELET COUNT 207 K/MM3 (134-434); RBC 4.29 M/mm3 (4.00-5.60); RDW 15.5 % (11.9-15.9); WHITE BLOOD COUNT 4.1 K/mm3 (4.0-10.0)
[2019-11-16 10:07] LABS: ALBUMIN 3.3 g/dl (3.4-5.0); BLOOD UREA NITROGEN 14.2 mg/dL (7-18); CREATININE 0.9 mg/dL (0.55-1.3)
[2019-11-16 10:10] LABS: BILIRUBIN,TOTAL 0.4 mg/dL (0.2-1); TOT PROT 6.8 g/dl (6.4-8.2)
--- NOTE | 2019-11-16 11:02 | PN ---
S CIWA - CIWA Score Nausea/Vomitin-No Nausea/No Vomiting Muscle Tremors: 4-Moderate,w/Arms Extend Anxiety: 4-Mod. Anxious/Guarded Agitation: 2 Paroxysmal Sweats: No Perspiration Orientation: 0-Oriented Tacttile Disturbances: 0-None Auditory Disturbances: 0-None Visual Disturbances: 0-None Headache: 0-None Present CIWA-Ar Total Score: 10 BHS Progress Note (SOAP) Subjective: C/o "muscle tension because of the alcohol". Anxiety Fatigue Objective: 11/16/19 11:00 Vital Signs - 24 hr 11/15/19 11/15/19 11/15/19 13:00 17:17 21:48 Temperature 98 F Pulse Rate 61 67 68 Respiratory 18 18 16 Rate Blood Pressure 111/73 115/73 109/71 O2 Sat by Pulse 99 96 98 Oximetry (%) 11/16/19 05:41 Temperature 98.2 F Pulse Rate 58 L Respiratory 16 Rate Blood Pressure 106/62 O2 Sat by Pulse 98 Oximetry (%) Laboratory Tests 11/16/19 11/16/19 07:45 07:45 WBC 4.1 RBC 4.29 Hgb 13.5 Hct 40.9 MCV 95.2 MCH 31.6 MCHC 33.2 RDW 15.5 Plt Count 207 D MPV 9.5 Sodium 137 Potassium 4.0 Chloride 101 Carbon Dioxide 30 Anion Gap 5 L BUN 14.2 Creatinine 0.9 Est GFR (CKD-EPI)AfAm 127.80 Est GFR (CKD-EPI)NonAf 110.27 Random Glucose 97 Calcium 9.0 Total Bilirubin 0.4 AST 59 H ALT 47 Alkaline Phosphatase 70 Total Protein 6.8 Albumin 3.3 L covid-19 result pending alert o x 3 nad oob ambulating with steady gait. Assessment: 11/16/19 11:01 withdrawal sx Plan: cont detox increase po fluids maintain safety Reminded to ask for librium prn if needed.
[2019-11-16] MEDS: PRENATAL VITAMINS W/ FOLIC ACID TABLET (FP) PO SCH (11:07)
[2019-11-16] MEDS: NICOTINE 7 MG/24 HOURS TOPICAL PATCH TD SCH (11:07)
[2019-11-16 17:00] LABS: URINE APPEARANCE CLEAR; URINE BILIRUBIN NEGATIVE (NEGATIVE); URINE COLOR YELLOW; URINE GLUCOSE (UA) NEGATIVE (NEGATIVE); URINE KETONE NEGATIVE (NEGATIVE); URINE LEUK ESTERASE NEGATIVE (NEGATIVE); URINE NITRITE NEGATIVE (NEGATIVE); URINE PROTEIN NEGATIVE (NEGATIVE); URINE UROBILINOGEN 0.2 mg/dL (0.2-1.0)
[2019-11-16] MEDS: MELATONIN 5 MG TABLETS PO SCH (22:18)
[2019-11-16] MEDS: THIAMINE HCL 100 MG TABLET (FP) PO SCH (22:18)
[2019-11-16] MEDS: METHOCARBAMOL 500 MG TABLET PO PRN (22:18)
[2019-11-17] MEDS ORDERED: chlordiazePOXIDE HCL 10 MG CAPSULE PO PRN
[2019-11-17] MEDS: chlordiazePOXIDE HCL 10 MG CAPSULE PO SCH ×5 (07:18→22:45)
[2019-11-17] MEDS: NICOTINE 7 MG/24 HOURS TOPICAL PATCH TD SCH (10:27)
[2019-11-17] MEDS: PRENATAL VITAMINS W/ FOLIC ACID TABLET (FP) PO SCH (10:27)
--- NOTE | 2019-11-17 12:02 | PN ---
S CIWA - CIWA Score Nausea/Vomitin-No Nausea/No Vomiting Muscle Tremors: 2 Anxiety: 3 Agitation: 0-Normal Activity Paroxysmal Sweats: No Perspiration Orientation: 0-Oriented Tacttile Disturbances: 0-None Auditory Disturbances: 0-None Visual Disturbances: 0-None Headache: 0-None Present CIWA-Ar Total Score: 5 BHS Progress Note (SOAP) Subjective: Reports decreasing withdrawal sx. Detox proceeding well. Slight anxiety and resolving muscle tension with meds. Objective: 11/17/19 12:03 Vital Signs - 24 hr 11/16/19 11/16/19 11/16/19 13:03 16:25 20:21 Temperature 98.0 F 97.3 F L Pulse Rate 59 L 66 Respiratory 16 18 Rate Blood Pressure 109/65 111/70 O2 Sat by Pulse 96 97 Oximetry (%) 11/16/19 11/17/19 20:50 05:44 Temperature 97.3 F L 97.5 F L Pulse Rate 67 98 H Respiratory 18 18 Rate Blood Pressure 119/78 118/62 O2 Sat by Pulse 97 98 Oximetry (%) Laboratory Tests 11/14/19 11/16/19 11/16/19 21:00 07:45 07:45 WBC 4.1 RBC 4.29 Hgb 13.5 Hct 40.9 MCV 95.2 MCH 31.6 MCHC 33.2 RDW 15.5 Plt Count 207 D MPV 9.5 Sodium Potassium Chloride Carbon Dioxide Anion Gap BUN Creatinine Est GFR (CKD-EPI)AfAm Est GFR (CKD-EPI)NonAf Random Glucose Calcium Total Bilirubin AST ALT Alkaline Phosphatase Total Protein Albumin Urine Color Urine Appearance Urine pH Ur Specific [place] Urine Protein Urine Glucose (UA) Urine Ketones Urine Blood Urine Nitrite Urine Bilirubin Urine Urobilinogen Ur Leukocyte Esterase Syphilis Serology Non-reactive COVID-19 (FLORIN) Not detected 11/16/19 11/16/19 07:45 14:15 WBC RBC Hgb Hct MCV MCH MCHC RDW Plt Count MPV Sodium 137 Potassium 4.0 Chloride 101 Carbon Dioxide 30 Anion Gap 5 L BUN 14.2 Creatinine 0.9 Est GFR (CKD-EPI)AfAm 127.80 Est GFR (CKD-EPI)NonAf 110.27 Random Glucose 97 Calcium 9.0 Total Bilirubin 0.4 AST 59 H ALT 47 Alkaline Phosphatase 70 Total Protein 6.8 Albumin 3.3 L Urine Color Yellow Urine Appearance Clear Urine pH 8.0 D Ur Specific [place] 1.007 L Urine Protein Negative Urine Glucose (UA) Negative Urine Ketones Negative Urine Blood Negative Urine Nitrite Negative Urine Bilirubin Negative Urine Urobilinogen 0.2 Ur Leukocyte Esterase Negative Syphilis Serology COVID-19 (FLORIN) covid-19 not detected alert o x 3 nad oob ambulating with steady gait Assessment: 11/17/19 12:04 withdrawal sx Plan: cont detox incraese po fluids maintain safety
--- NOTE | 2019-11-17 13:38 | DS ---
[facility] Detox Discharge Summary Admission Date: 11/14/19 Discharge Date: 11/17/19 - History Present History: Alcohol Dependence, Cocaine Dependence - Physical Exam Results Vital Signs: Vital Signs Temperature 97.5 F L 11/17/19 05:44 Pulse Rate 98 H 11/17/19 05:44 Respiratory Rate 18 11/17/19 05:44 Blood Pressure 118/62 11/17/19 05:44 O2 Sat by Pulse Oximetry (%) 98 11/17/19 05:44 - Treatment Hospital Course: Discharged Condition Good - Medication Discharge Medications: Ambulatory Orders NK [No Known Home Medication] 11/14/19 - AMA Did Patient Leave Against Medical Advice: No
[2019-11-17] MEDS: MELATONIN 5 MG TABLETS PO SCH ×2 (22:29→22:45)
[2019-11-17] MEDS: THIAMINE HCL 100 MG TABLET (FP) PO SCH ×2 (22:29→22:44)
[2019-11-18] MEDS ORDERED: chlordiazePOXIDE HCL 10 MG CAPSULE PO SCH (05:00)
[2019-11-18 06:48] VITALS: BP 111/67; PULSE 61; TEMP 97.3
--- NOTE | 2019-11-18 08:26 | DS ---
[facility] Detox Discharge Summary Admission Date: 11/14/19 Discharge Date: 11/18/19 - History Present History: Alcohol Dependence, Cocaine Dependence Additional Comments: Pt reports he has no primary care but goes to any hospital around him. Instructed to follow up at [facility] on [address] [place] [address] for medical care when needed. Pertinent Past History: Depression - Physical Exam Results Vital Signs: Vital Signs Temperature 97.3 F L 11/18/19 06:47 Pulse Rate 61 11/18/19 06:47 Respiratory Rate 18 11/18/19 06:47 Blood Pressure 111/67 11/18/19 06:47 O2 Sat by Pulse Oximetry (%) 97 11/18/19 06:47 Alert o x 3 nad oob ambulating with steady gait cardiac:s1 s2, rrr lungs:ctab abdomen:soft,+bs,nt,nd extremities:no edema; skin intact Pertinent Admission Physical Exam Findings: Laboratory Tests 11/14/19 11/16/19 11/16/19 21:00 07:45 07:45 WBC 4.1 RBC 4.29 Hgb 13.5 Hct 40.9 MCV 95.2 MCH 31.6 MCHC 33.2 RDW 15.5 Plt Count 207 D MPV 9.5 Sodium Potassium Chloride Carbon Dioxide Anion Gap BUN Creatinine Est GFR (CKD-EPI)AfAm Est GFR (CKD-EPI)NonAf Random Glucose Calcium Total Bilirubin AST ALT Alkaline Phosphatase Total Protein Albumin Urine Color Urine Appearance Urine pH Ur Specific [place] Urine Protein Urine Glucose (UA) Urine Ketones Urine Blood Urine Nitrite Urine Bilirubin Urine Urobilinogen Ur Leukocyte Esterase Syphilis Serology Non-reactive COVID-19 ([place]OR[place]) Not detected 11/16/19 11/16/19 07:45 14:15 WBC RBC Hgb Hct MCV MCH MCHC RDW Plt Count MPV Sodium 137 Potassium 4.0 Chloride 101 Carbon Dioxide 30 Anion Gap 5 L BUN 14.2 Creatinine 0.9 Est GFR (CKD-EPI)AfAm 127.80 Est GFR (CKD-EPI)NonAf 110.27 Random Glucose 97 Calcium 9.0 Total Bilirubin 0.4 AST 59 H ALT 47 Alkaline Phosphatase 70 Total Protein 6.8 Albumin 3.3 L Urine Color Yellow Urine Appearance Clear Urine pH 8.0 D Ur Specific [place] 1.007 L Urine Protein Negative Urine Glucose (UA) Negative Urine Ketones Negative Urine Blood Negative Urine Nitrite Negative Urine Bilirubin Negative Urine Urobilinogen 0.2 Ur Leukocyte Esterase Negative Syphilis Serology COVID-19 (FLORIN) - Treatment Hospital Course: Detox Protocol Followed, Detoxed Safely, Responded well, Discharged Condition Good, Rehab Referral Accepted Patient has Accepted a Rehab Referral to: [facility] - Medication Discharge Medications: Ambulatory Orders NK [No Known Home Medication] 11/14/19 - Diagnosis (1) Alcohol dependence with uncomplicated withdrawal Status: Acute (2) Cocaine dependence, uncomplicated Status: Acute (3) Nicotine dependence Status: Acute Qualifiers: Nicotine product type: cigarettes Substance use status: in withdrawal Qualified Code(s): F17.213 - Nicotine dependence, cigarettes, with withdrawal - AMA Did Patient Leave Against Medical Advice: No
[2019-11-18] MEDS: PRENATAL VITAMINS W/ FOLIC ACID TABLET (FP) PO SCH (10:18)
[2019-11-18] MEDS: NICOTINE 7 MG/24 HOURS TOPICAL PATCH TD SCH (10:18)
[2019-11-19] MEDS ORDERED: chlordiazePOXIDE HCL 10 MG CAPSULE PO ONE (05:00)
== END 2019-11-18 10:55 | disposition home or self-care (01) | DRG 774 ==
LOC: YASAS 14:43 → Y5N DETOX 17:48
PROVIDERS: ADMIT Allergy & Immunology; ATTEND Allergy & Immunology
PROC: HZ2ZZZZ Detoxification Services for Substance Abuse Treatment (ICD-10-PCS; principal; 2019-11-14)
DX: F10.230 Alcohol dependence with withdrawal, uncomplicated (principal); F14.20 Cocaine dependence, uncomplicated; F17.213 Nicotine dependence, cigarettes, with withdrawal; F32.9 Major depressive disorder, single episode, unspecified; L85.3 Xerosis cutis; R23.8 Other skin changes; R63.8 Other symptoms and signs concerning food and fluid intake; Z59.0 Homelessness
CPT/HCPCS: 36415; 71046-TC-FY; 80053; 81003; 85027; 86780; 93005; 93010; U0003

== ENCOUNTER 2020-04-12 10:56 | Inpatient (IN) | payer OTHER ==
[2020-04-12 12:59] VITALS: BMI 25.5
[2020-04-12] MEDS ORDERED: ACETAMINOPHEN 325 MG TABLET (FP) PO PRN ×2 (13:02)
[2020-04-12] MEDS ORDERED: BISMUTH SUBSALICYLATE 524 MG/30 ML UD PO PRN (13:02)
[2020-04-12] MEDS ORDERED: MAG HYDROX/AL HYDROX/SIMETH 30 ML UNIT-DOSE CUP PO PRN (13:02)
[2020-04-12] MEDS ORDERED: MAGNESIUM CITRATE 300 ML BOTTLE PO PRN (13:02)
[2020-04-12] MEDS ORDERED: ONDANSETRON *ODT* 4 MG TABLET SL PRN (13:02)
[2020-04-12] MEDS ORDERED: METHOCARBAMOL 500 MG TABLET PO PRN (13:02)
[2020-04-12] MEDS ORDERED: chlordiazePOXIDE HCL 25 MG CAPSULE PO PRN (13:02)
[2020-04-12] MEDS ORDERED: MAGNESIUM HYDROX 2400MG/30ML ORAL SUSPENSION 30 ML CUP PO PRN (13:02)
[2020-04-12] MEDS ORDERED: IBUPROFEN 400 MG TABLET (FP) PO PRN (13:02)
[2020-04-12] MEDS ORDERED: NICOTINE POLACRILEX 2 MG GUM BUC PRN (13:02)
[2020-04-12] MEDS ORDERED: MENTHOL/PHENOL 1 EACH UD MM PRN (13:02)
[2020-04-12] MEDS ORDERED: chlordiazePOXIDE HCL 25 MG CAPSULE PO ONE (13:30)
[2020-04-12] MEDS: hydrOXYzine PAMOATE 25 MG CAPSULE (FP) PO SCH ×3 (13:54→22:29)
[2020-04-12 14:26] LABS: POTASSIUM 3.8 mmol/L (3.5-5.1)
[2020-04-12 14:27] LABS: CALCIUM 8.9 mg/dL (8.5-10.1)
[2020-04-12 14:28] LABS: ALBUMIN 3.8 g/dl (3.4-5.0); BLOOD UREA NITROGEN 16.1 mg/dL (7-18); HEMATOCRIT 42.9 % (35.4-49); HEMOGLOBIN 14.4 GM/dL (11.7-16.9); MCH 31.1 pg (25.7-33.7); MCHC 33.5 g/dl (32.0-35.9); MEAN CELL VOLUME 92.8 fl (80-96); MEAN PLT VOLUME 8.6 fl (7.5-11.1); PLATELET COUNT 311 K/MM3 (134-434); RBC 4.62 M/mm3 (4.00-5.60); RDW 14.2 % (11.9-15.9); WHITE BLOOD COUNT 5.8 K/mm3 (4.0-10.0)
[2020-04-12 14:31] LABS: CREATININE 1.3 mg/dL (0.55-1.3)
[2020-04-12 14:33] LABS: BILIRUBIN,TOTAL 0.3 mg/dL (0.2-1); TOT PROT 7.3 g/dl (6.4-8.2)
[2020-04-12] MEDS: chlordiazePOXIDE HCL 25 MG CAPSULE PO SCH ×2 (17:58→22:29)
[2020-04-12] MEDS: THIAMINE HCL 100 MG TABLET (FP) PO SCH (22:29)
[2020-04-12] MEDS: MELATONIN 5 MG TABLETS PO SCH (22:29)
[2020-04-13] MEDS: chlordiazePOXIDE HCL 25 MG CAPSULE PO SCH ×4 (05:35→22:21)
[2020-04-13] MEDS: hydrOXYzine PAMOATE 25 MG CAPSULE (FP) PO SCH ×6 (05:35→22:30)
[2020-04-13] MEDS: PRENATAL VITAMINS W/ FOLIC ACID TABLET (FP) PO SCH (10:12)
[2020-04-13] MEDS: NICOTINE 7 MG/24 HOURS TOPICAL PATCH TD SCH (10:12)
[2020-04-13] MEDS: THIAMINE HCL 100 MG TABLET (FP) PO SCH (22:20)
[2020-04-13] MEDS: MELATONIN 5 MG TABLETS PO SCH (22:30)
[2020-04-14] MEDS: hydrOXYzine PAMOATE 25 MG CAPSULE (FP) PO SCH ×5 (07:28→22:24)
[2020-04-14] MEDS: chlordiazePOXIDE HCL 25 MG CAPSULE PO SCH ×4 (07:28→22:22)
[2020-04-14] MEDS: PRENATAL VITAMINS W/ FOLIC ACID TABLET (FP) PO SCH (10:07)
[2020-04-14] MEDS: NICOTINE 7 MG/24 HOURS TOPICAL PATCH TD SCH (10:07)
[2020-04-14] MEDS: THIAMINE HCL 100 MG TABLET (FP) PO SCH (22:23)
[2020-04-14] MEDS: MELATONIN 5 MG TABLETS PO SCH (22:24)
[2020-04-15] MEDS ORDERED: chlordiazePOXIDE HCL 10 MG CAPSULE PO PRN
[2020-04-15] MEDS: chlordiazePOXIDE HCL 10 MG CAPSULE PO SCH ×4 (05:23→22:11)
[2020-04-15] MEDS: hydrOXYzine PAMOATE 25 MG CAPSULE (FP) PO SCH (05:24)
[2020-04-15] MEDS ORDERED: hydrOXYzine PAMOATE 25 MG CAPSULE (FP) PO PRN (08:51)
[2020-04-15] MEDS: NICOTINE 7 MG/24 HOURS TOPICAL PATCH TD SCH (10:08)
[2020-04-15] MEDS: PRENATAL VITAMINS W/ FOLIC ACID TABLET (FP) PO SCH (10:08)
[2020-04-15] MEDS: MELATONIN 5 MG TABLETS PO SCH (22:11)
[2020-04-15] MEDS: THIAMINE HCL 100 MG TABLET (FP) PO SCH (22:12)
[2020-04-16] MEDS: chlordiazePOXIDE HCL 10 MG CAPSULE PO SCH ×2 (05:12→17:31)
[2020-04-16] MEDS: PRENATAL VITAMINS W/ FOLIC ACID TABLET (FP) PO SCH (10:18)
[2020-04-16] MEDS: NICOTINE 7 MG/24 HOURS TOPICAL PATCH TD SCH (10:19)
[2020-04-16] MEDS: THIAMINE HCL 100 MG TABLET (FP) PO SCH (22:09)
[2020-04-16] MEDS: MELATONIN 5 MG TABLETS PO SCH (22:09)
[2020-04-17] MEDS ORDERED: chlordiazePOXIDE HCL 10 MG CAPSULE PO ONE (05:00)
[2020-04-17 08:54] VITALS: BP 120/67; PULSE 88; TEMP 97.8
[2020-04-17] MEDS: NICOTINE 7 MG/24 HOURS TOPICAL PATCH TD SCH (11:40)
[2020-04-17] MEDS: PRENATAL VITAMINS W/ FOLIC ACID TABLET (FP) PO SCH (11:41)
== END 2020-04-17 11:55 | disposition other institution (70) | DRG 774 ==
LOC: YASAS 10:56 → Y3N 12:20
PROVIDERS: ADMIT Allergy & Immunology; ATTEND Allergy & Immunology
PROC: HZ2ZZZZ Detoxification Services for Substance Abuse Treatment (ICD-10-PCS; principal; 2020-04-12)
DX: F10.230 Alcohol dependence with withdrawal, uncomplicated (principal); F10.220 Alcohol dependence with intoxication, uncomplicated; F14.20 Cocaine dependence, uncomplicated; F12.20 Cannabis dependence, uncomplicated; F17.213 Nicotine dependence, cigarettes, with withdrawal; F19.24 Other psychoactive substance dependence with psychoactive substance-induced mood disorder; E86.0 Dehydration; R76.11 Nonspecific reaction to tuberculin skin test without active tuberculosis; Z59.0 Homelessness
CPT/HCPCS: 36415; 80053; 85027; 86780; C9803; U0003

== ENCOUNTER 2020-04-17 11:51 | Inpatient (IN) | payer OTHER ==
[2020-04-17] MEDS ORDERED: MAG HYDROX/AL HYDROX/SIMETH 30 ML UNIT-DOSE CUP PO PRN (12:37)
[2020-04-17] MEDS ORDERED: P-EPHED 60MG/TRIPROLIDI 2.5MG TABLET PO PRN (12:37)
[2020-04-17] MEDS ORDERED: MAGNESIUM CITRATE 300 ML BOTTLE PO PRN (12:37)
[2020-04-17] MEDS ORDERED: IBUPROFEN 400 MG TABLET (FP) PO PRN (12:37)
[2020-04-17] MEDS ORDERED: NICOTINE POLACRILEX 2 MG GUM BUC PRN (12:37)
[2020-04-17] MEDS ORDERED: ACETAMINOPHEN 325 MG TABLET (FP) PO PRN (12:37)
[2020-04-17] MEDS ORDERED: guaiFENesin 200 MG/10 ML 10 ML UNIT-DOSE CUPS PO PRN (12:37)
[2020-04-17] MEDS ORDERED: MENTHOL/PHENOL 1 EACH UD MM PRN (12:37)
[2020-04-17] MEDS ORDERED: LOPERAMIDE HCL 2 MG CAPSULE PO PRN (12:37)
[2020-04-17] MEDS ORDERED: MAGNESIUM HYDROX 2400MG/30ML ORAL SUSPENSION 30 ML CUP PO PRN (12:37)
[2020-04-17] MEDS ORDERED: hydrOXYzine PAMOATE 25 MG CAPSULE (FP) PO PRN (12:37)
[2020-04-17] MEDS: METHOCARBAMOL 500 MG TABLET PO SCH ×3 (14:55→22:25)
[2020-04-17] MEDS: MELATONIN 5 MG TABLETS PO SCH (22:25)
[2020-04-17] MEDS: THIAMINE HCL 100 MG TABLET (FP) PO SCH (22:25)
[2020-04-18] MEDS: METHOCARBAMOL 500 MG TABLET PO SCH ×4 (10:50→21:50)
[2020-04-18] MEDS: NICOTINE 7 MG/24 HOURS TOPICAL PATCH TD SCH (10:50)
[2020-04-18] MEDS: PRENATAL VITAMINS W/ FOLIC ACID TABLET (FP) PO SCH (10:50)
[2020-04-18] MEDS: THIAMINE HCL 100 MG TABLET (FP) PO SCH (21:50)
[2020-04-18] MEDS: MELATONIN 5 MG TABLETS PO SCH (21:50)
[2020-04-19] MEDS: PRENATAL VITAMINS W/ FOLIC ACID TABLET (FP) PO SCH (10:16)
[2020-04-19] MEDS: METHOCARBAMOL 500 MG TABLET PO SCH ×4 (10:16→21:57)
[2020-04-19] MEDS: NICOTINE 7 MG/24 HOURS TOPICAL PATCH TD SCH (10:16)
[2020-04-19] MEDS: THIAMINE HCL 100 MG TABLET (FP) PO SCH (21:57)
[2020-04-19] MEDS: MELATONIN 5 MG TABLETS PO SCH (21:57)
[2020-04-20] MEDS: METHOCARBAMOL 500 MG TABLET PO SCH ×4 (10:08→21:39)
[2020-04-20] MEDS: PRENATAL VITAMINS W/ FOLIC ACID TABLET (FP) PO SCH (10:08)
[2020-04-20] MEDS: NICOTINE 7 MG/24 HOURS TOPICAL PATCH TD SCH (10:08)
[2020-04-20] MEDS: MELATONIN 5 MG TABLETS PO SCH (21:39)
[2020-04-20] MEDS: THIAMINE HCL 100 MG TABLET (FP) PO SCH (21:39)
[2020-04-21] MEDS: NICOTINE 7 MG/24 HOURS TOPICAL PATCH TD SCH (10:38)
[2020-04-21] MEDS: PRENATAL VITAMINS W/ FOLIC ACID TABLET (FP) PO SCH (10:39)
[2020-04-21] MEDS: METHOCARBAMOL 500 MG TABLET PO SCH ×4 (10:40→21:57)
[2020-04-21] MEDS: MELATONIN 5 MG TABLETS PO SCH (21:57)
[2020-04-21] MEDS: THIAMINE HCL 100 MG TABLET (FP) PO SCH (21:58)
[2020-04-22] MEDS: METHOCARBAMOL 500 MG TABLET PO SCH ×4 (10:02→22:09)
[2020-04-22] MEDS: NICOTINE 7 MG/24 HOURS TOPICAL PATCH TD SCH (10:02)
[2020-04-22] MEDS: PRENATAL VITAMINS W/ FOLIC ACID TABLET (FP) PO SCH (10:02)
[2020-04-22] MEDS: MELATONIN 5 MG TABLETS PO SCH (22:09)
[2020-04-22] MEDS: THIAMINE HCL 100 MG TABLET (FP) PO SCH (22:09)
[2020-04-23] MEDS: METHOCARBAMOL 500 MG TABLET PO SCH ×4 (10:57→21:35)
[2020-04-23] MEDS: PRENATAL VITAMINS W/ FOLIC ACID TABLET (FP) PO SCH (10:57)
[2020-04-23] MEDS: NICOTINE 7 MG/24 HOURS TOPICAL PATCH TD SCH (10:57)
[2020-04-23] MEDS: MELATONIN 5 MG TABLETS PO SCH (21:35)
[2020-04-23] MEDS: THIAMINE HCL 100 MG TABLET (FP) PO SCH (21:35)
[2020-04-24] MEDS: PRENATAL VITAMINS W/ FOLIC ACID TABLET (FP) PO SCH (09:38)
[2020-04-24] MEDS: METHOCARBAMOL 500 MG TABLET PO SCH ×4 (09:38→21:57)
[2020-04-24] MEDS: NICOTINE 7 MG/24 HOURS TOPICAL PATCH TD SCH (09:38)
[2020-04-24] MEDS: MELATONIN 5 MG TABLETS PO SCH (21:57)
[2020-04-24] MEDS: THIAMINE HCL 100 MG TABLET (FP) PO SCH (21:57)
[2020-04-25] MEDS: PRENATAL VITAMINS W/ FOLIC ACID TABLET (FP) PO SCH (10:09)
[2020-04-25] MEDS: METHOCARBAMOL 500 MG TABLET PO SCH ×4 (10:09→21:25)
[2020-04-25] MEDS: NICOTINE 7 MG/24 HOURS TOPICAL PATCH TD SCH (10:09)
[2020-04-25] MEDS: MELATONIN 5 MG TABLETS PO SCH (21:25)
[2020-04-25] MEDS: THIAMINE HCL 100 MG TABLET (FP) PO SCH (21:26)
[2020-04-26] MEDS: NICOTINE 7 MG/24 HOURS TOPICAL PATCH TD SCH (10:26)
[2020-04-26] MEDS: PRENATAL VITAMINS W/ FOLIC ACID TABLET (FP) PO SCH (10:26)
[2020-04-26] MEDS: METHOCARBAMOL 500 MG TABLET PO SCH ×4 (10:26→22:27)
[2020-04-26] MEDS: THIAMINE HCL 100 MG TABLET (FP) PO SCH (22:27)
[2020-04-26] MEDS: MELATONIN 5 MG TABLETS PO SCH (22:27)
[2020-04-27] MEDS: NICOTINE 7 MG/24 HOURS TOPICAL PATCH TD SCH (09:57)
[2020-04-27] MEDS: METHOCARBAMOL 500 MG TABLET PO SCH ×4 (09:57→21:57)
[2020-04-27] MEDS: PRENATAL VITAMINS W/ FOLIC ACID TABLET (FP) PO SCH (09:57)
[2020-04-27] MEDS: MELATONIN 5 MG TABLETS PO SCH (21:57)
[2020-04-27] MEDS: THIAMINE HCL 100 MG TABLET (FP) PO SCH (21:57)
[2020-04-28] MEDS: NICOTINE 7 MG/24 HOURS TOPICAL PATCH TD SCH (10:17)
[2020-04-28] MEDS: METHOCARBAMOL 500 MG TABLET PO SCH ×4 (10:17→22:25)
[2020-04-28] MEDS: PRENATAL VITAMINS W/ FOLIC ACID TABLET (FP) PO SCH (10:17)
[2020-04-28] MEDS: MELATONIN 5 MG TABLETS PO SCH (22:25)
[2020-04-28] MEDS: THIAMINE HCL 100 MG TABLET (FP) PO SCH (22:26)
[2020-04-29] MEDS: METHOCARBAMOL 500 MG TABLET PO SCH ×4 (10:10→21:45)
[2020-04-29] MEDS: PRENATAL VITAMINS W/ FOLIC ACID TABLET (FP) PO SCH (10:10)
[2020-04-29] MEDS: NICOTINE 7 MG/24 HOURS TOPICAL PATCH TD SCH (10:10)
[2020-04-29] MEDS: MELATONIN 5 MG TABLETS PO SCH (21:45)
[2020-04-29] MEDS: THIAMINE HCL 100 MG TABLET (FP) PO SCH (21:46)
[2020-04-30] MEDS: METHOCARBAMOL 500 MG TABLET PO SCH ×4 (10:01→21:39)
[2020-04-30] MEDS: PRENATAL VITAMINS W/ FOLIC ACID TABLET (FP) PO SCH (10:01)
[2020-04-30] MEDS: NICOTINE 7 MG/24 HOURS TOPICAL PATCH TD SCH (10:01)
[2020-04-30] MEDS: MELATONIN 5 MG TABLETS PO SCH (21:39)
[2020-04-30] MEDS: THIAMINE HCL 100 MG TABLET (FP) PO SCH (21:39)
[2020-05-01 06:47] VITALS: BP 126/84; PULSE 77; TEMP 97.2
== END 2020-05-01 09:43 | disposition home or self-care (01) | DRG 772 ==
LOC: YASAS 11:51 → Y3W 11:52 → Y5N 04-19 16:06 → Y3W 04-19 18:33
PROVIDERS: ADMIT Allergy & Immunology; ATTEND Allergy & Immunology
PROC: HZ42ZZZ Group Counseling for Substance Abuse Treatment, Cognitive-Behavioral (ICD-10-PCS; principal; 2020-04-17)
DX: F10.20 Alcohol dependence, uncomplicated (principal); F14.20 Cocaine dependence, uncomplicated; F12.20 Cannabis dependence, uncomplicated; F17.210 Nicotine dependence, cigarettes, uncomplicated; F19.24 Other psychoactive substance dependence with psychoactive substance-induced mood disorder; Z59.0 Homelessness

== ENCOUNTER 2020-09-13 09:31 | Inpatient (IN) | payer OTHER ==
[2020-09-13 10:46] VITALS: BMI 24.3
[2020-09-13] MEDS ORDERED: LORazepam 1 MG TABLET PO PRN (10:55)
[2020-09-13] MEDS ORDERED: IBUPROFEN 400 MG TABLET (FP) PO PRN (10:55)
[2020-09-13] MEDS ORDERED: MENTHOL/PHENOL 1 EACH UD MM PRN (10:55)
[2020-09-13] MEDS ORDERED: MAGNESIUM HYDROX 2400MG/30ML ORAL SUSPENSION 30 ML CUP PO PRN (10:55)
[2020-09-13] MEDS ORDERED: ONDANSETRON *ODT* 4 MG TABLET SL PRN (10:55)
[2020-09-13] MEDS ORDERED: MAGNESIUM CITRATE 300 ML BOTTLE PO PRN (10:55)
[2020-09-13] MEDS ORDERED: BISMUTH SUBSALICYLATE 262 MG/15 ML BTL PO PRN (10:55)
[2020-09-13] MEDS ORDERED: ACETAMINOPHEN 325 MG TABLET (FP) PO PRN ×2 (10:55)
[2020-09-13] MEDS ORDERED: METHOCARBAMOL 500 MG TABLET PO PRN (10:55)
[2020-09-13] MEDS ORDERED: NICOTINE POLACRILEX 2 MG GUM BUC PRN (10:55)
[2020-09-13] MEDS ORDERED: MAG HYDROX/AL HYDROX/SIMETH 30 ML UNIT-DOSE CUP PO PRN (10:55)
[2020-09-13] MEDS ORDERED: IBUPROFEN 400 MG TABLET (FP) PO ONE (12:15)
[2020-09-13] MEDS: PRENATAL VITAMINS W/ FOLIC ACID TABLET (FP) PO SCH (12:53)
[2020-09-13] MEDS: hydrOXYzine PAMOATE 25 MG CAPSULE (FP) PO SCH ×3 (13:41→22:40)
[2020-09-13 14:37] LABS: HEMATOCRIT 36.6 % (35.4-49); HEMOGLOBIN 12.7 GM/dL (11.7-16.9); MCH 31.3 pg (25.7-33.7); MCHC 34.7 g/dl (32.0-35.9); MEAN CELL VOLUME 90.1 fl (80-96); MEAN PLT VOLUME 9.1 fl (7.5-11.1); PLATELET COUNT 248 K/MM3 (134-434); RBC 4.06 M/mm3 (4.00-5.60); RDW 13.9 % (11.9-15.9); WHITE BLOOD COUNT 8.9 K/mm3 (4.0-10.0)
[2020-09-13 14:41] LABS: ALBUMIN 3.8 g/dl (3.4-5.0); BLOOD UREA NITROGEN 18.9 mg/dL (7-18); CALCIUM 8.7 mg/dL (8.5-10.1)
[2020-09-13 14:45] LABS: CREATININE 1.1 mg/dL (0.55-1.3)
[2020-09-13 14:47] LABS: BILIRUBIN,TOTAL 1.1 mg/dL (0.2-1); TOT PROT 7.1 g/dl (6.4-8.2)
[2020-09-13] MEDS: LORazepam 2 MG TABLET PO SCH ×2 (18:04→22:40)
[2020-09-13] MEDS: THIAMINE HCL 100 MG TABLET (FP) PO SCH (22:40)
[2020-09-13] MEDS: MELATONIN 5 MG TABLETS PO SCH (22:40)
[2020-09-14] MEDS: LORazepam 2 MG TABLET PO SCH ×4 (06:57→22:46)
[2020-09-14] MEDS: hydrOXYzine PAMOATE 25 MG CAPSULE (FP) PO SCH ×6 (06:57→22:46)
[2020-09-14] MEDS: PRENATAL VITAMINS W/ FOLIC ACID TABLET (FP) PO SCH (10:57)
[2020-09-14] MEDS: MELATONIN 5 MG TABLETS PO SCH (22:45)
[2020-09-14] MEDS: THIAMINE HCL 100 MG TABLET (FP) PO SCH (22:46)
[2020-09-15] MEDS: LORazepam 1 MG TABLET PO SCH ×4 (06:54→22:59)
[2020-09-15] MEDS: hydrOXYzine PAMOATE 25 MG CAPSULE (FP) PO SCH ×5 (06:55→23:01)
[2020-09-15] MEDS: PRENATAL VITAMINS W/ FOLIC ACID TABLET (FP) PO SCH (12:22)
[2020-09-15] MEDS: THIAMINE HCL 100 MG TABLET (FP) PO SCH (22:58)
[2020-09-15] MEDS: MELATONIN 5 MG TABLETS PO SCH (22:59)
[2020-09-15] MEDS ORDERED: MASKS NR ONE (23:03)
[2020-09-16] MEDS ORDERED: LORazepam 0.5 MG TABLET PO PRN
[2020-09-16] MEDS: hydrOXYzine PAMOATE 25 MG CAPSULE (FP) PO SCH ×5 (06:48→23:36)
[2020-09-16] MEDS: LORazepam 0.5 MG TABLET PO SCH ×4 (06:48→23:36)
[2020-09-16] MEDS: PRENATAL VITAMINS W/ FOLIC ACID TABLET (FP) PO SCH (11:03)
[2020-09-16] MEDS: MELATONIN 5 MG TABLETS PO SCH (23:35)
[2020-09-16] MEDS: THIAMINE HCL 100 MG TABLET (FP) PO SCH (23:36)
[2020-09-17] MEDS ORDERED: LORazepam 0.5 MG TABLET PO ONE (05:00)
[2020-09-17] MEDS: hydrOXYzine PAMOATE 25 MG CAPSULE (FP) PO SCH (07:45)
[2020-09-17 09:50] VITALS: BP 109/74; PULSE 85; TEMP 97.8
== END 2020-09-17 13:29 | disposition home or self-care (01) | DRG 774 ==
LOC: YASAS 09:31 → Y6N 11:47
PROVIDERS: ADMIT Allergy & Immunology; ATTEND Allergy & Immunology
PROC: HZ2ZZZZ Detoxification Services for Substance Abuse Treatment (ICD-10-PCS; principal; 2020-09-13)
DX: F10.230 Alcohol dependence with withdrawal, uncomplicated (principal); F14.20 Cocaine dependence, uncomplicated; F12.20 Cannabis dependence, uncomplicated; F17.210 Nicotine dependence, cigarettes, uncomplicated; F19.24 Other psychoactive substance dependence with psychoactive substance-induced mood disorder; R73.9 Hyperglycemia, unspecified; R76.11 Nonspecific reaction to tuberculin skin test without active tuberculosis; S82.891D Other fracture of right lower leg, subsequent encounter for closed fracture with routine healing; X58.XXXD Exposure to other specified factors, subsequent encounter; Z99.89 Dependence on other enabling machines and devices; Z59.0 Homelessness; Z56.0 Unemployment, unspecified
CPT/HCPCS: 36415; 80053; 85027; 86780; C9803; U0003; U0005

== ENCOUNTER 2021-02-28 14:24 | Inpatient (IN) | payer OTHER ==
[2021-02-28] MEDS ORDERED: MAG HYDROX/AL HYDROX/SIMETH 30 ML UNIT-DOSE CUP PO PRN (14:59)
[2021-02-28] MEDS ORDERED: ACETAMINOPHEN 325 MG TABLET (FP) PO PRN ×2 (14:59)
[2021-02-28] MEDS ORDERED: IBUPROFEN 400 MG TABLET (FP) PO PRN (14:59)
[2021-02-28] MEDS ORDERED: MENTHOL/PHENOL 1 EACH UD MM PRN (14:59)
[2021-02-28] MEDS ORDERED: BISMUTH SUBSALICYLATE 524 MG/30 ML PO PRN (14:59)
[2021-02-28] MEDS ORDERED: MAGNESIUM CITRATE 300 ML BOTTLE PO PRN (14:59)
[2021-02-28] MEDS ORDERED: METHOCARBAMOL 500 MG TABLET PO PRN (14:59)
[2021-02-28] MEDS ORDERED: ONDANSETRON *ODT* 4 MG TABLET SL PRN (14:59)
[2021-02-28] MEDS ORDERED: NICOTINE 10 MG CARTRIDGE (INHALER) IH PRN (14:59)
[2021-02-28] MEDS ORDERED: MAGNESIUM HYDROX 2400MG/30ML ORAL SUSPENSION 30 ML CUP PO PRN (14:59)
[2021-02-28 16:56] VITALS: BMI 20.6
[2021-02-28] MEDS: hydrOXYzine PAMOATE 25 MG CAPSULE (FP) PO SCH ×2 (22:02→22:03)
[2021-02-28] MEDS: THIAMINE HCL 100 MG TABLET (FP) PO SCH (22:02)
[2021-02-28] MEDS: PRENATAL VITAMINS W/ FOLIC ACID TABLET (FP) PO SCH (22:02)
[2021-02-28] MEDS: MELATONIN 5 MG TABLETS PO SCH (22:03)
[2021-03-01] MEDS: hydrOXYzine PAMOATE 25 MG CAPSULE (FP) PO SCH ×5 (08:12→22:20)
[2021-03-01] MEDS ORDERED: diazePAM 5 MG TABLET PO PRN (10:16)
[2021-03-01] MEDS: PRENATAL VITAMINS W/ FOLIC ACID TABLET (FP) PO SCH (10:20)
[2021-03-01 10:39] LABS: HEMATOCRIT 37.4 % (35.4-49); HEMOGLOBIN 12.8 GM/dL (11.7-16.9); MCH 32.5 pg (25.7-33.7); MCHC 34.2 g/dl (32.0-35.9); MEAN PLT VOLUME 8.6 fl (7.5-11.1); PLATELET COUNT 265 10^3/uL (134-434); RBC 3.94 M/mm3 (4.00-5.60); RDW 13.7 % (11.9-15.9)
[2021-03-01 10:57] LABS: ALBUMIN 2.9 g/dl (3.4-5.0); BLOOD UREA NITROGEN 15.7 mg/dL (7-18); CALCIUM 8.7 mg/dL (8.5-10.1)
[2021-03-01 11:01] LABS: BILIRUBIN,TOTAL 0.3 mg/dL (0.2-1); TOT PROT 6.1 g/dl (6.4-8.2)
[2021-03-01] MEDS: diazePAM 5 MG TABLET PO SCH ×3 (11:21→22:20)
[2021-03-01] MEDS: THIAMINE HCL 100 MG TABLET (FP) PO SCH (22:20)
[2021-03-01] MEDS: MELATONIN 5 MG TABLETS PO SCH (22:20)
[2021-03-02] MEDS: diazePAM 5 MG TABLET PO SCH ×4 (05:22→22:37)
[2021-03-02] MEDS: hydrOXYzine PAMOATE 25 MG CAPSULE (FP) PO SCH ×5 (05:22→22:36)
[2021-03-02] MEDS: PRENATAL VITAMINS W/ FOLIC ACID TABLET (FP) PO SCH (10:39)
[2021-03-02] MEDS: THIAMINE HCL 100 MG TABLET (FP) PO SCH (22:35)
[2021-03-02] MEDS: MELATONIN 5 MG TABLETS PO SCH (22:36)
[2021-03-03] MEDS: hydrOXYzine PAMOATE 25 MG CAPSULE (FP) PO SCH ×5 (05:23→22:57)
[2021-03-03] MEDS: diazePAM 5 MG TABLET PO SCH ×3 (05:23→22:57)
[2021-03-03] MEDS: PRENATAL VITAMINS W/ FOLIC ACID TABLET (FP) PO SCH (10:33)
[2021-03-03] MEDS: MELATONIN 5 MG TABLETS PO SCH (22:56)
[2021-03-03] MEDS: THIAMINE HCL 100 MG TABLET (FP) PO SCH (22:56)
[2021-03-04] MEDS: hydrOXYzine PAMOATE 25 MG CAPSULE (FP) PO SCH ×6 (05:34→23:56)
[2021-03-04] MEDS: diazePAM 5 MG TABLET PO SCH ×2 (06:05→17:51)
[2021-03-04] MEDS: PRENATAL VITAMINS W/ FOLIC ACID TABLET (FP) PO SCH (10:38)
[2021-03-04] MEDS: THIAMINE HCL 100 MG TABLET (FP) PO SCH ×2 (22:42→23:58)
[2021-03-04] MEDS: MELATONIN 5 MG TABLETS PO SCH ×2 (22:43→23:58)
[2021-03-05] MEDS ORDERED: diazePAM 5 MG TABLET PO ONE (06:00)
[2021-03-05] MEDS: hydrOXYzine PAMOATE 25 MG CAPSULE (FP) PO SCH (06:11)
[2021-03-05 09:23] VITALS: BP 121/68; PULSE 77; TEMP 97.1
== END 2021-03-05 09:22 | disposition home or self-care (01) | DRG 774 ==
LOC: YASAS 14:24 → Y3N 20:39 → Y6N 03-03 18:01 → Y3N 03-03 19:07
PROVIDERS: ADMIT Allergy & Immunology; ATTEND Allergy & Immunology
PROC: HZ2ZZZZ Detoxification Services for Substance Abuse Treatment (ICD-10-PCS; principal; 2021-02-28)
DX: F10.230 Alcohol dependence with withdrawal, uncomplicated (principal); F14.20 Cocaine dependence, uncomplicated; F12.20 Cannabis dependence, uncomplicated; F17.210 Nicotine dependence, cigarettes, uncomplicated; E46 Unspecified protein-calorie malnutrition; Z68.20 Body mass index [BMI] 20.0-20.9, adult; Z87.01 Personal history of pneumonia (recurrent); Z99.89 Dependence on other enabling machines and devices; Z86.11 Personal history of tuberculosis; Z59.00 Homelessness unspecified
CPT/HCPCS: 36415; 71046-TC-FY; 80053; 85027; 86780; C9803; U0003; U0005

== ENCOUNTER 2021-04-05 09:53 | Inpatient (IN) | payer OTHER ==
[2021-04-05] MEDS ORDERED: chlordiazePOXIDE HCL 25 MG CAPSULE PO PRN (10:34)
[2021-04-05] MEDS ORDERED: MAGNESIUM HYDROX 2400MG/30ML ORAL SUSPENSION 30 ML CUP PO PRN (10:34)
[2021-04-05] MEDS ORDERED: NICOTINE 10 MG CARTRIDGE (INHALER) IH PRN (10:34)
[2021-04-05] MEDS ORDERED: IBUPROFEN 400 MG TABLET (FP) PO PRN (10:34)
[2021-04-05] MEDS ORDERED: ACETAMINOPHEN 325 MG TABLET (FP) PO PRN ×2 (10:34)
[2021-04-05] MEDS ORDERED: ONDANSETRON *ODT* 4 MG TABLET SL PRN (10:34)
[2021-04-05] MEDS ORDERED: BISMUTH SUBSALICYLATE 524 MG/30 ML PO PRN (10:34)
[2021-04-05] MEDS ORDERED: MENTHOL/PHENOL 1 EACH UD MM PRN (10:34)
[2021-04-05] MEDS ORDERED: MAG HYDROX/AL HYDROX/SIMETH 30 ML UNIT-DOSE CUP PO PRN (10:34)
[2021-04-05] MEDS ORDERED: MAGNESIUM CITRATE 300 ML BOTTLE PO PRN (10:34)
[2021-04-05] MEDS ORDERED: METHOCARBAMOL 500 MG TABLET PO PRN (10:34)
[2021-04-05 10:40] VITALS: BMI 20.3
[2021-04-05] MEDS: chlordiazePOXIDE HCL 25 MG CAPSULE PO SCH ×3 (12:43→22:53)
[2021-04-05] MEDS: PRENATAL VITAMINS W/ FOLIC ACID TABLET (FP) PO SCH (12:43)
[2021-04-05] MEDS: hydrOXYzine PAMOATE 25 MG CAPSULE (FP) PO SCH ×3 (13:09→22:52)
[2021-04-05 15:47] LABS: HEMATOCRIT 40.8 % (35.4-49); HEMOGLOBIN 13.9 GM/dL (11.7-16.9); MCH 32.7 pg (25.7-33.7); MEAN CELL VOLUME 95.9 fl (80-96); MEAN PLT VOLUME 8.4 fl (7.5-11.1); PLATELET COUNT 307 10^3/uL (134-434); RBC 4.25 M/mm3 (4.00-5.60); RDW 13.8 % (11.9-15.9); WHITE BLOOD COUNT 5.9 K/mm3 (4.0-10.0)
[2021-04-05 15:58] LABS: ALBUMIN 3.8 g/dl (3.4-5.0); BLOOD UREA NITROGEN 15.7 mg/dL (7-18); CALCIUM 9.3 mg/dL (8.5-10.1)
[2021-04-05 16:01] LABS: CREATININE 1.1 mg/dL (0.55-1.3)
[2021-04-05 16:02] LABS: BILIRUBIN,TOTAL 0.2 mg/dL (0.2-1); TOT PROT 7.9 g/dl (6.4-8.2)
[2021-04-05] MEDS: MELATONIN 5 MG TABLETS PO SCH (22:52)
[2021-04-05] MEDS: THIAMINE HCL 100 MG TABLET (FP) PO SCH (22:52)
[2021-04-06] MEDS: chlordiazePOXIDE HCL 25 MG CAPSULE PO SCH ×3 (05:59→18:58)
[2021-04-06] MEDS: hydrOXYzine PAMOATE 25 MG CAPSULE (FP) PO SCH ×4 (06:04→19:02)
[2021-04-06] MEDS: PRENATAL VITAMINS W/ FOLIC ACID TABLET (FP) PO SCH (11:37)
[2021-04-07] MEDS: MELATONIN 5 MG TABLETS PO SCH ×2 (00:11→23:29)
[2021-04-07] MEDS: chlordiazePOXIDE HCL 25 MG CAPSULE PO SCH ×5 (00:11→23:30)
[2021-04-07] MEDS: hydrOXYzine PAMOATE 25 MG CAPSULE (FP) PO SCH ×6 (00:14→23:29)
[2021-04-07] MEDS: THIAMINE HCL 100 MG TABLET (FP) PO SCH ×2 (00:14→22:15)
[2021-04-07] MEDS: PRENATAL VITAMINS W/ FOLIC ACID TABLET (FP) PO SCH (12:13)
[2021-04-08] MEDS ORDERED: chlordiazePOXIDE HCL 10 MG CAPSULE PO PRN
[2021-04-08] MEDS: chlordiazePOXIDE HCL 10 MG CAPSULE PO SCH ×2 (05:56→11:03)
[2021-04-08] MEDS: hydrOXYzine PAMOATE 25 MG CAPSULE (FP) PO SCH ×2 (05:57→11:03)
[2021-04-08] MEDS: PRENATAL VITAMINS W/ FOLIC ACID TABLET (FP) PO SCH (10:40)
[2021-04-08] MEDS: chlordiazePOXIDE 5 MG CAPSULE PO SCH ×2 (14:19→22:37)
[2021-04-08] MEDS: THIAMINE HCL 100 MG TABLET (FP) PO SCH (22:38)
[2021-04-08] MEDS: MELATONIN 5 MG TABLETS PO SCH (22:38)
[2021-04-09] MEDS ORDERED: chlordiazePOXIDE HCL 10 MG CAPSULE PO SCH (05:00)
[2021-04-09] MEDS: chlordiazePOXIDE 5 MG CAPSULE PO SCH ×2 (06:12→11:04)
[2021-04-09] MEDS: PRENATAL VITAMINS W/ FOLIC ACID TABLET (FP) PO SCH (11:03)
[2021-04-09] MEDS ORDERED: MAG HYDROX/AL HYDROX/SIMETH 30 ML UNIT-DOSE CUP PO PRN (16:08)
[2021-04-09] MEDS ORDERED: LOPERAMIDE HCL 2 MG CAPSULE PO PRN (16:08)
[2021-04-09] MEDS ORDERED: MAGNESIUM CITRATE 300 ML BOTTLE PO PRN (16:08)
[2021-04-09] MEDS ORDERED: P-EPHED 60MG/TRIPROLIDI 2.5MG TABLET PO PRN (16:08)
[2021-04-09] MEDS ORDERED: NICOTINE 10 MG CARTRIDGE (INHALER) IH PRN (16:08)
[2021-04-09] MEDS ORDERED: IBUPROFEN 400 MG TABLET (FP) PO PRN (16:08)
[2021-04-09] MEDS ORDERED: guaiFENesin 200 MG/10 ML 10 ML UNIT-DOSE CUPS PO PRN (16:08)
[2021-04-09] MEDS ORDERED: ACETAMINOPHEN 325 MG TABLET (FP) PO PRN (16:08)
[2021-04-09] MEDS ORDERED: MAGNESIUM HYDROX 2400MG/30ML ORAL SUSPENSION 30 ML CUP PO PRN (16:08)
[2021-04-09 17:42] VITALS: BP 126/67; PULSE 76; TEMP 97.1
[2021-04-09] MEDS ORDERED: hydrOXYzine PAMOATE 25 MG CAPSULE (FP) PO SCH (18:00)
[2021-04-09] MEDS ORDERED: MELATONIN 5 MG TABLETS PO SCH (22:00)
[2021-04-09] MEDS ORDERED: THIAMINE HCL 100 MG TABLET (FP) PO SCH (22:00)
[2021-04-10] MEDS ORDERED: chlordiazePOXIDE HCL 10 MG CAPSULE PO ONE (05:00)
[2021-04-10] MEDS ORDERED: chlordiazePOXIDE 5 MG CAPSULE PO ONE (05:00)
[2021-04-10] MEDS ORDERED: NICOTINE 7 MG/24 HOURS TOPICAL PATCH TD SCH (10:00)
[2021-04-10] MEDS ORDERED: PRENATAL VITAMINS W/ FOLIC ACID TABLET (FP) PO SCH (10:00)
== END 2021-04-09 19:45 | disposition other institution (70) | DRG 774 ==
LOC: YASAS 09:53 → Y6N 11:39
PROVIDERS: ADMIT Allergy & Immunology; ATTEND Allergy & Immunology
PROC: HZ2ZZZZ Detoxification Services for Substance Abuse Treatment (ICD-10-PCS; principal; 2021-04-05)
DX: F10.230 Alcohol dependence with withdrawal, uncomplicated (principal); F14.20 Cocaine dependence, uncomplicated; F12.20 Cannabis dependence, uncomplicated; F17.210 Nicotine dependence, cigarettes, uncomplicated; F19.24 Other psychoactive substance dependence with psychoactive substance-induced mood disorder; R73.09 Other abnormal glucose; S82.891D Other fracture of right lower leg, subsequent encounter for closed fracture with routine healing; X58.XXXD Exposure to other specified factors, subsequent encounter; Z86.11 Personal history of tuberculosis; Z56.0 Unemployment, unspecified; Z59.01 Sheltered homelessness
CPT/HCPCS: 36415; 80053; 85027; 86780; C9803; U0003; U0005

== ENCOUNTER 2021-04-09 20:03 | Inpatient (IN) | payer OTHER ==
[~2021-04-09 20:03] MED LIST: ACETAMINOPHEN 325 MG TABLET (FP) PO PRN; IBUPROFEN 400 MG TABLET (FP) PO PRN; LOPERAMIDE HCL 2 MG CAPSULE PO PRN; MAG HYDROX/AL HYDROX/SIMETH 30 ML UNIT-DOSE CUP PO PRN; MAGNESIUM CITRATE 300 ML BOTTLE PO PRN; MAGNESIUM HYDROX 2400MG/30ML ORAL SUSPENSION 30 ML CUP PO PRN; NICOTINE 10 MG CARTRIDGE (INHALER) IH PRN; P-EPHED 60MG/TRIPROLIDI 2.5MG TABLET PO PRN; guaiFENesin 200 MG/10 ML 10 ML UNIT-DOSE CUPS PO PRN; hydrOXYzine PAMOATE 25 MG CAPSULE (FP) PO PRN
[2021-04-09] MEDS: MELATONIN 5 MG TABLETS PO SCH (21:49)
[2021-04-09] MEDS: THIAMINE HCL 100 MG TABLET (FP) PO SCH (21:49)
[2021-04-10] MEDS: PRENATAL VITAMINS W/ FOLIC ACID TABLET (FP) PO SCH (10:36)
[2021-04-10] MEDS: MELATONIN 5 MG TABLETS PO SCH (21:24)
[2021-04-10] MEDS: THIAMINE HCL 100 MG TABLET (FP) PO SCH (21:24)
[2021-04-11] MEDS: PRENATAL VITAMINS W/ FOLIC ACID TABLET (FP) PO SCH (10:42)
[2021-04-11] MEDS: MELATONIN 5 MG TABLETS PO SCH (21:36)
[2021-04-11] MEDS: THIAMINE HCL 100 MG TABLET (FP) PO SCH (21:36)
[2021-04-12] MEDS: PRENATAL VITAMINS W/ FOLIC ACID TABLET (FP) PO SCH (10:01)
[2021-04-12] MEDS: MELATONIN 5 MG TABLETS PO SCH (21:26)
[2021-04-12] MEDS: THIAMINE HCL 100 MG TABLET (FP) PO SCH (21:27)
[2021-04-13] MEDS: PRENATAL VITAMINS W/ FOLIC ACID TABLET (FP) PO SCH (09:46)
[2021-04-13] MEDS: THIAMINE HCL 100 MG TABLET (FP) PO SCH (21:57)
[2021-04-13] MEDS: MELATONIN 5 MG TABLETS PO SCH ×2 (21:57→22:02)
[2021-04-14] MEDS: PRENATAL VITAMINS W/ FOLIC ACID TABLET (FP) PO SCH (11:25)
[2021-04-14] MEDS: THIAMINE HCL 100 MG TABLET (FP) PO SCH (22:20)
[2021-04-14] MEDS: MELATONIN 5 MG TABLETS PO SCH (22:20)
[2021-04-15] MEDS: PRENATAL VITAMINS W/ FOLIC ACID TABLET (FP) PO SCH (09:56)
[2021-04-15] MEDS: THIAMINE HCL 100 MG TABLET (FP) PO SCH (22:27)
[2021-04-15] MEDS: MELATONIN 5 MG TABLETS PO SCH (22:27)
[2021-04-16] MEDS: PRENATAL VITAMINS W/ FOLIC ACID TABLET (FP) PO SCH (11:16)
[2021-04-16] MEDS: MELATONIN 5 MG TABLETS PO SCH (22:16)
[2021-04-16] MEDS: THIAMINE HCL 100 MG TABLET (FP) PO SCH (22:16)
[2021-04-17] MEDS: PRENATAL VITAMINS W/ FOLIC ACID TABLET (FP) PO SCH (10:57)
[2021-04-17] MEDS: LIDOCAINE 5% TOPICAL PATCH TP SCH (13:58)
[2021-04-17] MEDS: THIAMINE HCL 100 MG TABLET (FP) PO SCH (21:39)
[2021-04-17] MEDS: MELATONIN 5 MG TABLETS PO SCH (21:39)
[2021-04-17] MEDS: LIDOCAINE PATCH REMOVAL MC SCH (21:39)
[2021-04-18] MEDS: PRENATAL VITAMINS W/ FOLIC ACID TABLET (FP) PO SCH (10:32)
[2021-04-18] MEDS: LIDOCAINE 5% TOPICAL PATCH TP SCH (10:32)
[2021-04-18] MEDS: LIDOCAINE PATCH REMOVAL MC SCH (21:56)
[2021-04-18] MEDS: MELATONIN 5 MG TABLETS PO SCH (21:56)
[2021-04-18] MEDS: THIAMINE HCL 100 MG TABLET (FP) PO SCH (21:56)
[2021-04-19] MEDS: LIDOCAINE 5% TOPICAL PATCH TP SCH (10:25)
[2021-04-19] MEDS: PRENATAL VITAMINS W/ FOLIC ACID TABLET (FP) PO SCH (10:25)
[2021-04-19] MEDS ORDERED: LIDOCAINE 5% TOPICAL PATCH TP ONE (17:38)
[2021-04-19] MEDS: THIAMINE HCL 100 MG TABLET (FP) PO SCH (21:51)
[2021-04-19] MEDS: MELATONIN 5 MG TABLETS PO SCH (21:51)
[2021-04-19] MEDS: LIDOCAINE PATCH REMOVAL MC SCH ×2 (21:51)
[2021-04-20] MEDS: PRENATAL VITAMINS W/ FOLIC ACID TABLET (FP) PO SCH (09:59)
[2021-04-20] MEDS: LIDOCAINE 5% TOPICAL PATCH TP SCH (09:59)
[2021-04-20] MEDS: MELATONIN 5 MG TABLETS PO SCH (22:42)
[2021-04-20] MEDS: THIAMINE HCL 100 MG TABLET (FP) PO SCH (22:42)
[2021-04-20] MEDS: LIDOCAINE PATCH REMOVAL MC SCH ×2 (22:42)
[2021-04-21] MEDS: LIDOCAINE 5% TOPICAL PATCH TP SCH (10:11)
[2021-04-21] MEDS: PRENATAL VITAMINS W/ FOLIC ACID TABLET (FP) PO SCH (10:26)
[2021-04-21] MEDS: LIDOCAINE PATCH REMOVAL MC SCH ×2 (21:34)
[2021-04-21] MEDS: MELATONIN 5 MG TABLETS PO SCH (21:34)
[2021-04-21] MEDS: THIAMINE HCL 100 MG TABLET (FP) PO SCH (21:34)
[2021-04-22] MEDS: PRENATAL VITAMINS W/ FOLIC ACID TABLET (FP) PO SCH (12:15)
[2021-04-22] MEDS: LIDOCAINE 5% TOPICAL PATCH TP SCH (12:21)
[2021-04-22] MEDS: MELATONIN 5 MG TABLETS PO SCH (21:30)
[2021-04-22] MEDS: LIDOCAINE PATCH REMOVAL MC SCH ×2 (21:30)
[2021-04-22] MEDS: THIAMINE HCL 100 MG TABLET (FP) PO SCH (21:30)
[2021-04-23 06:43] VITALS: BP 102/71; PULSE 66; TEMP 98.4
[2021-04-23] MEDS: LIDOCAINE 5% TOPICAL PATCH TP SCH (09:16)
[2021-04-23] MEDS: PRENATAL VITAMINS W/ FOLIC ACID TABLET (FP) PO SCH (09:16)
== END 2021-04-23 09:20 | disposition home or self-care (01) | DRG 772 ==
LOC: YASAS 20:03 → Y3W 20:06
PROVIDERS: ADMIT Allergy & Immunology; ATTEND Allergy & Immunology
PROC: HZ42ZZZ Group Counseling for Substance Abuse Treatment, Cognitive-Behavioral (ICD-10-PCS; principal; 2021-04-09)
DX: F10.20 Alcohol dependence, uncomplicated (principal); F14.20 Cocaine dependence, uncomplicated; F12.20 Cannabis dependence, uncomplicated; F17.210 Nicotine dependence, cigarettes, uncomplicated; Z56.0 Unemployment, unspecified; Z59.01 Sheltered homelessness
CPT/HCPCS: C9803; U0003; U0005

== ENCOUNTER 2021-10-18 09:55 | Inpatient (IN) | payer OTHER ==
[2021-10-18 10:40] VITALS: BMI 21.9
[2021-10-18] MEDS ORDERED: IBUPROFEN 400 MG TABLET (FP) PO PRN (10:57)
[2021-10-18] MEDS ORDERED: BISMUTH SUBSALICYLATE 262 MG/15 ML BTL PO PRN (10:57)
[2021-10-18] MEDS ORDERED: DICYCLOMINE HCL 10 MG CAPSULE PO PRN (10:57)
[2021-10-18] MEDS ORDERED: BENZOCAINE/MENTHOL (CHLORASEPTIC ) LOZENGE MM PRN (10:57)
[2021-10-18] MEDS ORDERED: ONDANSETRON *ODT* 4 MG TABLET SL PRN (10:57)
[2021-10-18] MEDS ORDERED: IBUPROFEN 600 MG TABLET (FP) PO PRN (10:57)
[2021-10-18] MEDS ORDERED: MAGNESIUM HYDROX 2400MG/30ML ORAL SUSPENSION 30 ML CUP PO PRN (10:57)
[2021-10-18] MEDS ORDERED: ACETAMINOPHEN 325 MG TABLET (FP) PO PRN ×2 (10:57)
[2021-10-18] MEDS ORDERED: NICOTINE 10 MG CARTRIDGE (INHALER) IH PRN (10:57)
[2021-10-18] MEDS ORDERED: METHOCARBAMOL 500 MG TABLET PO PRN (10:57)
[2021-10-18] MEDS ORDERED: LOPERAMIDE HCL 2 MG CAPSULE PO PRN (10:57)
[2021-10-18] MEDS ORDERED: MAG HYDROX/AL HYDROX/SIMETH 30 ML UNIT-DOSE CUP PO PRN (10:57)
[2021-10-18] MEDS ORDERED: MAGNESIUM CITRATE 300 ML BOTTLE PO PRN (10:57)
[2021-10-18] MEDS: PRENATAL VITAMINS W/ FOLIC ACID TABLET (FP) PO SCH (12:18)
[2021-10-18] MEDS: hydrOXYzine PAMOATE 25 MG CAPSULE (FP) PO SCH ×3 (14:39→22:44)
[2021-10-18 17:17] LABS: HEMATOCRIT 39.6 % (35.4-49); HEMOGLOBIN 13.5 GM/dL (11.7-16.9); MCH 31.4 pg (25.7-33.7); MCHC 34.2 g/dl (32.0-35.9); MEAN CELL VOLUME 91.8 fl (80-96); MEAN PLT VOLUME 8.6 fl (7.5-11.1); PLATELET COUNT 325 10^3/uL (134-434); RBC 4.31 M/mm3 (4.00-5.60); RDW 14.1 % (11.9-15.9); WHITE BLOOD COUNT 5.5 K/mm3 (4.0-10.0)
[2021-10-18 17:24] LABS: ALBUMIN 3.7 g/dl (3.4-5.0); BLOOD UREA NITROGEN 14.1 mg/dL (7-18)
[2021-10-18 17:28] LABS: BILIRUBIN,TOTAL 1.1 mg/dL (0.2-1); CREATININE 1.1 mg/dL (0.55-1.3); TOT PROT 7.4 g/dl (6.4-8.2)
[2021-10-18] MEDS: THIAMINE HCL 100 MG TABLET (FP) PO SCH (22:44)
[2021-10-18] MEDS: MELATONIN 5 MG TABLETS PO SCH (22:44)
[2021-10-19] MEDS: hydrOXYzine PAMOATE 25 MG CAPSULE (FP) PO SCH ×5 (06:24→22:32)
[2021-10-19] MEDS: PRENATAL VITAMINS W/ FOLIC ACID TABLET (FP) PO SCH (11:39)
[2021-10-19] MEDS: MELATONIN 5 MG TABLETS PO SCH (22:30)
[2021-10-19] MEDS: THIAMINE HCL 100 MG TABLET (FP) PO SCH (22:30)
[2021-10-20] MEDS: hydrOXYzine PAMOATE 25 MG CAPSULE (FP) PO SCH ×2 (05:55→10:49)
[2021-10-20 09:16] VITALS: BP 124/73; PULSE 64; TEMP 98.9
[2021-10-20] MEDS: PRENATAL VITAMINS W/ FOLIC ACID TABLET (FP) PO SCH (10:49)
== END 2021-10-20 10:48 | disposition home or self-care (01) | DRG 774 ==
LOC: YASAS 09:55 → Y6N 11:22 → UNDOADMIN 11:22 → UNDODISIN 10-20 10:48
PROVIDERS: ADMIT Allergy & Immunology; ATTEND Surgery
PROC: HZ2ZZZZ Detoxification Services for Substance Abuse Treatment (ICD-10-PCS; principal; 2021-10-18)
DX: F10.230 Alcohol dependence with withdrawal, uncomplicated (principal); F14.20 Cocaine dependence, uncomplicated; F12.20 Cannabis dependence, uncomplicated; F17.213 Nicotine dependence, cigarettes, with withdrawal; Z86.11 Personal history of tuberculosis; Z59.01 Sheltered homelessness
CPT/HCPCS: 36415; 80053; 85027; 86780; 87811; C9803-CS; U0003; U0005

== ENCOUNTER 2021-12-19 12:29 | Inpatient (IN) | payer OTHER ==
[2021-12-19 15:07] VITALS: BMI 21.9
[2021-12-19] MEDS ORDERED: BISMUTH SUBSALICYLATE 524 MG/30 ML PO PRN (18:09)
[2021-12-19] MEDS ORDERED: MAGNESIUM CITRATE 300 ML BOTTLE PO PRN (18:09)
[2021-12-19] MEDS ORDERED: DICYCLOMINE HCL 10 MG CAPSULE PO PRN (18:09)
[2021-12-19] MEDS ORDERED: ONDANSETRON *ODT* 4 MG TABLET SL PRN (18:09)
[2021-12-19] MEDS ORDERED: METHOCARBAMOL 500 MG TABLET PO PRN (18:09)
[2021-12-19] MEDS ORDERED: LOPERAMIDE HCL 2 MG CAPSULE PO PRN (18:09)
[2021-12-19] MEDS ORDERED: NICOTINE POLACRILEX 2 MG GUM BUC PRN (18:09)
[2021-12-19] MEDS ORDERED: MAGNESIUM HYDROX 2400MG/30ML ORAL SUSPENSION 30 ML CUP PO PRN (18:09)
[2021-12-19] MEDS ORDERED: ACETAMINOPHEN 325 MG TABLET (FP) PO PRN ×2 (18:09)
[2021-12-19] MEDS ORDERED: BENZOCAINE/MENTHOL (CHLORASEPTIC ) LOZENGE MM PRN (18:09)
[2021-12-19] MEDS ORDERED: IBUPROFEN 600 MG TABLET (FP) PO PRN (18:09)
[2021-12-19] MEDS ORDERED: IBUPROFEN 400 MG TABLET (FP) PO PRN (18:09)
[2021-12-19] MEDS ORDERED: MAG HYDROX/AL HYDROX/SIMETH 30 ML UNIT-DOSE CUP PO PRN (18:09)
[2021-12-19] MEDS ORDERED: chlordiazePOXIDE HCL 25 MG CAPSULE PO PRN (18:47)
[2021-12-19] MEDS: chlordiazePOXIDE HCL 25 MG CAPSULE PO SCH (23:19)
[2021-12-19] MEDS: MELATONIN 5 MG TABLETS PO SCH (23:20)
[2021-12-19] MEDS: THIAMINE HCL 100 MG TABLET (FP) PO SCH (23:20)
[2021-12-20] MEDS: chlordiazePOXIDE HCL 25 MG CAPSULE PO SCH ×4 (07:15→23:30)
[2021-12-20 10:01] LABS: HEMATOCRIT 37.5 % (35.4-49); HEMOGLOBIN 12.9 GM/dL (11.7-16.9); MCH 32.4 pg (25.7-33.7); MCHC 34.3 g/dl (32.0-35.9); MEAN CELL VOLUME 94.4 fl (80-96); MEAN PLT VOLUME 8.5 fl (7.5-11.1); PLATELET COUNT 268 10^3/uL (134-434); RBC 3.98 M/mm3 (4.00-5.60); RDW 15.1 % (11.9-15.9); WHITE BLOOD COUNT 4.4 K/mm3 (4.0-10.0)
[2021-12-20 10:15] LABS: BLOOD UREA NITROGEN 19.4 mg/dL (7-18); CREATININE 0.9 mg/dL (0.55-1.3)
[2021-12-20 10:16] LABS: ALBUMIN 2.9 g/dl (3.4-5.0)
[2021-12-20 10:17] LABS: BILIRUBIN,TOTAL 0.4 mg/dL (0.2-1); TOT PROT 5.9 g/dl (6.4-8.2)
[2021-12-20 10:18] LABS: CALCIUM 8.4 mg/dL (8.5-10.1)
[2021-12-20] MEDS: NICOTINE 14 MG/24 HOURS TOPICAL PATCH TD SCH (10:44)
[2021-12-20] MEDS: PRENATAL VITAMINS W/ FOLIC ACID TABLET (FP) PO SCH (10:45)
[2021-12-20 21:24] VITALS: RESP 18
[2021-12-20] MEDS: MELATONIN 5 MG TABLETS PO SCH (23:30)
[2021-12-20] MEDS: THIAMINE HCL 100 MG TABLET (FP) PO SCH (23:33)
[2021-12-21] MEDS: chlordiazePOXIDE HCL 25 MG CAPSULE PO SCH ×2 (05:46→12:19)
[2021-12-21 09:23] VITALS: BP 138/86; PULSE 95; TEMP 97.3
[2021-12-21] MEDS: PRENATAL VITAMINS W/ FOLIC ACID TABLET (FP) PO SCH (10:44)
[2021-12-21] MEDS: NICOTINE 14 MG/24 HOURS TOPICAL PATCH TD SCH (10:45)
[2021-12-22] MEDS ORDERED: chlordiazePOXIDE HCL 10 MG CAPSULE PO PRN
[2021-12-22] MEDS ORDERED: chlordiazePOXIDE HCL 10 MG CAPSULE PO SCH (05:00)
[2021-12-23] MEDS ORDERED: chlordiazePOXIDE HCL 10 MG CAPSULE PO SCH (05:00)
[2021-12-24] MEDS ORDERED: chlordiazePOXIDE HCL 10 MG CAPSULE PO ONE (05:00)
== END 2021-12-21 12:29 | disposition left against medical advice (07) | DRG 770 ==
LOC: YASAS 12:29 → Y6N 18:41
PROVIDERS: ADMIT Allergy & Immunology; ATTEND Surgery
PROC: HZ2ZZZZ Detoxification Services for Substance Abuse Treatment (ICD-10-PCS; principal; 2021-12-19)
DX: F12.20 Cannabis dependence, uncomplicated (principal); F14.20 Cocaine dependence, uncomplicated; F10.230 Alcohol dependence with withdrawal, uncomplicated; F17.210 Nicotine dependence, cigarettes, uncomplicated; Z86.11 Personal history of tuberculosis; Z56.0 Unemployment, unspecified; Z59.00 Homelessness unspecified
CPT/HCPCS: 36415; 80053; 85027; 86780; 87811; C9803-CS; U0003; U0005

== ENCOUNTER 2022-01-09 12:22 | Inpatient (IN) | payer OTHER ==
[2022-01-09 13:38] VITALS: BMI 21.7
[2022-01-09] MEDS ORDERED: ACETAMINOPHEN 325 MG TABLET (FP) PO PRN ×2 (15:56)
[2022-01-09] MEDS ORDERED: MAGNESIUM HYDROX 2400MG/30ML ORAL SUSPENSION 30 ML CUP PO PRN (15:56)
[2022-01-09] MEDS ORDERED: BENZOCAINE/MENTHOL (CHLORASEPTIC ) LOZENGE MM PRN (15:56)
[2022-01-09] MEDS ORDERED: IBUPROFEN 600 MG TABLET (FP) PO PRN (15:56)
[2022-01-09] MEDS ORDERED: LOPERAMIDE HCL 2 MG CAPSULE PO PRN (15:56)
[2022-01-09] MEDS ORDERED: MAG HYDROX/AL HYDROX/SIMETH 30 ML UNIT-DOSE CUP PO PRN (15:56)
[2022-01-09] MEDS ORDERED: chlordiazePOXIDE HCL 25 MG CAPSULE PO PRN (15:56)
[2022-01-09] MEDS ORDERED: DICYCLOMINE HCL 10 MG CAPSULE PO PRN (15:56)
[2022-01-09] MEDS ORDERED: MAGNESIUM CITRATE 300 ML BOTTLE PO PRN (15:56)
[2022-01-09] MEDS ORDERED: IBUPROFEN 400 MG TABLET (FP) PO PRN (15:56)
[2022-01-09] MEDS ORDERED: NALOXONE HCL (KLOXXADO) 8 MG SPRAY NS PRN (15:56)
[2022-01-09] MEDS ORDERED: METHOCARBAMOL 500 MG TABLET PO PRN (15:56)
[2022-01-09] MEDS ORDERED: NICOTINE 10 MG CARTRIDGE (INHALER) IH PRN (15:56)
[2022-01-09] MEDS ORDERED: ONDANSETRON *ODT* 4 MG TABLET SL PRN (15:56)
[2022-01-09] MEDS ORDERED: BISMUTH SUBSALICYLATE 524 MG/30 ML PO PRN (15:56)
[2022-01-09] MEDS: chlordiazePOXIDE HCL 25 MG CAPSULE PO SCH ×2 (18:20→22:38)
[2022-01-09] MEDS: hydrOXYzine PAMOATE 25 MG CAPSULE (FP) PO SCH ×2 (18:21→22:41)
[2022-01-09] MEDS: MELATONIN 5 MG TABLETS PO SCH (22:41)
[2022-01-09] MEDS: THIAMINE HCL 100 MG TABLET (FP) PO SCH (22:41)
[2022-01-10] MEDS: hydrOXYzine PAMOATE 25 MG CAPSULE (FP) PO SCH ×5 (05:52→22:37)
[2022-01-10] MEDS: chlordiazePOXIDE HCL 25 MG CAPSULE PO SCH ×4 (05:52→22:36)
[2022-01-10 10:49] LABS: HEMATOCRIT 38.1 % (35.4-49); HEMOGLOBIN 13.1 GM/dL (11.7-16.9); MCH 32.6 pg (25.7-33.7); MCHC 34.4 g/dl (32.0-35.9); MEAN CELL VOLUME 94.8 fl (80-96); MEAN PLT VOLUME 8.8 fl (7.5-11.1); PLATELET COUNT 246 10^3/uL (134-434); RBC 4.02 M/mm3 (4.00-5.60); RDW 14.8 % (11.9-15.9); WHITE BLOOD COUNT 3.9 K/mm3 (4.0-10.0)
[2022-01-10] MEDS: PRENATAL VITAMINS W/ FOLIC ACID TABLET (FP) PO SCH (10:49)
[2022-01-10 10:54] LABS: ALBUMIN 3.2 g/dl (3.4-5.0); BLOOD UREA NITROGEN 21.8 mg/dL (7-18); CALCIUM 8.5 mg/dL (8.5-10.1)
[2022-01-10 10:58] LABS: BILIRUBIN,TOTAL 0.6 mg/dL (0.2-1); TOT PROT 6.3 g/dl (6.4-8.2)
[2022-01-10] MEDS: MELATONIN 5 MG TABLETS PO SCH (22:37)
[2022-01-10] MEDS: THIAMINE HCL 100 MG TABLET (FP) PO SCH (22:37)
[2022-01-11] MEDS: chlordiazePOXIDE HCL 25 MG CAPSULE PO SCH ×4 (05:33→22:21)
[2022-01-11] MEDS: hydrOXYzine PAMOATE 25 MG CAPSULE (FP) PO SCH ×5 (05:33→22:22)
[2022-01-11] MEDS: PRENATAL VITAMINS W/ FOLIC ACID TABLET (FP) PO SCH (10:21)
[2022-01-11] MEDS: THIAMINE HCL 100 MG TABLET (FP) PO SCH (22:21)
[2022-01-11] MEDS: MELATONIN 5 MG TABLETS PO SCH (22:22)
[2022-01-12] MEDS ORDERED: chlordiazePOXIDE HCL 10 MG CAPSULE PO PRN
[2022-01-12] MEDS ORDERED: chlordiazePOXIDE HCL 10 MG CAPSULE PO SCH (05:00)
[2022-01-12] MEDS: hydrOXYzine PAMOATE 25 MG CAPSULE (FP) PO SCH (05:39)
[2022-01-12] MEDS ORDERED: hydrOXYzine PAMOATE 25 MG CAPSULE (FP) PO PRN (08:43)
[2022-01-12] MEDS: PRENATAL VITAMINS W/ FOLIC ACID TABLET (FP) PO SCH (10:27)
[2022-01-12] MEDS: chlordiazePOXIDE HCL 10 MG CAPSULE PO SCH ×2 (10:28→22:40)
[2022-01-12 17:47] VITALS: RESP 18
[2022-01-12] MEDS: MELATONIN 5 MG TABLETS PO SCH (22:40)
[2022-01-12] MEDS: THIAMINE HCL 100 MG TABLET (FP) PO SCH (22:40)
[2022-01-13] MEDS ORDERED: chlordiazePOXIDE 5 MG CAPSULE PO SCH ×2 (10:00→17:00)
[2022-01-13] MEDS: PRENATAL VITAMINS W/ FOLIC ACID TABLET (FP) PO SCH (10:31)
[2022-01-13 12:48] VITALS: BP 101/65; PULSE 79; TEMP 98.4
[2022-01-13] MEDS ORDERED: chlordiazePOXIDE HCL 10 MG CAPSULE PO SCH (17:00)
[2022-01-14] MEDS ORDERED: chlordiazePOXIDE HCL 10 MG CAPSULE PO ONE (05:00)
== END 2022-01-13 15:05 | disposition home or self-care (01) | DRG 774 ==
LOC: YASAS 12:22 → Y3N 16:47
PROVIDERS: ADMIT Allergy & Immunology; ATTEND Surgery
PROC: HZ2ZZZZ Detoxification Services for Substance Abuse Treatment (ICD-10-PCS; principal; 2022-01-09)
DX: F10.230 Alcohol dependence with withdrawal, uncomplicated (principal); F14.20 Cocaine dependence, uncomplicated; F12.20 Cannabis dependence, uncomplicated; F17.210 Nicotine dependence, cigarettes, uncomplicated; Z86.19 Personal history of other infectious and parasitic diseases
CPT/HCPCS: 36415; 80053; 85027; 86780; C9803-CS; Q0162; U0003; U0005

== ENCOUNTER 2022-03-18 10:22 | Inpatient (IN) | payer OTHER ==
[2022-03-18 11:11] VITALS: BMI 21.9
[2022-03-18] MEDS ORDERED: POLYETHYLENE GLYCOL (HEALTHYLAX) 3350 17 GM PACKET PO PRN (11:25)
[2022-03-18] MEDS ORDERED: MAG HYDROX/AL HYDROX/SIMETH 30 ML UNIT-DOSE CUP PO PRN (11:25)
[2022-03-18] MEDS ORDERED: METHOCARBAMOL 500 MG TABLET PO PRN (11:25)
[2022-03-18] MEDS ORDERED: NICOTINE 10 MG CARTRIDGE (INHALER) IH PRN (11:25)
[2022-03-18] MEDS ORDERED: IBUPROFEN 400 MG TABLET (FP) PO PRN (11:25)
[2022-03-18] MEDS ORDERED: ONDANSETRON *ODT* 4 MG TABLET SL PRN (11:25)
[2022-03-18] MEDS ORDERED: DICYCLOMINE HCL 10 MG CAPSULE PO PRN (11:25)
[2022-03-18] MEDS ORDERED: NALOXONE HCL (KLOXXADO) 8 MG SPRAY NS PRN (11:25)
[2022-03-18] MEDS ORDERED: BENZOCAINE/MENTHOL (CHLORASEPTIC ) LOZENGE MM PRN (11:25)
[2022-03-18] MEDS ORDERED: ACETAMINOPHEN 325 MG TABLET (FP) PO PRN ×2 (11:25)
[2022-03-18] MEDS ORDERED: BISMUTH SUBSALICYLATE 262 MG/15 ML BTL PO PRN (11:25)
[2022-03-18] MEDS ORDERED: IBUPROFEN 600 MG TABLET (FP) PO PRN (11:25)
[2022-03-18] MEDS ORDERED: MAGNESIUM HYDROX 2400MG/30ML ORAL SUSPENSION 30 ML CUP PO PRN (11:25)
[2022-03-18] MEDS ORDERED: hydrOXYzine PAMOATE 25 MG CAPSULE (FP) PO PRN (11:25)
[2022-03-18] MEDS ORDERED: LOPERAMIDE HCL 2 MG CAPSULE PO PRN (11:25)
[2022-03-18] MEDS: NICOTINE 7 MG/24 HOURS TOPICAL PATCH TD SCH (12:21)
[2022-03-18] MEDS: PRENATAL VITAMINS W/ FOLIC ACID TABLET (FP) PO SCH (12:22)
[2022-03-18] MEDS: chlordiazePOXIDE HCL 25 MG CAPSULE PO PRN (12:22)
[2022-03-18 15:25] LABS: HEMATOCRIT 38.3 % (35.4-49); HEMOGLOBIN 12.7 GM/dL (11.7-16.9); MCH 31.6 pg (25.7-33.7); MCHC 33.1 g/dl (32.0-35.9); MEAN CELL VOLUME 95.3 fl (80-96); MEAN PLT VOLUME 8.8 fl (7.5-11.1); PLATELET COUNT 252 10^3/uL (134-434); RBC 4.02 M/mm3 (4.00-5.60); RDW 13.6 % (11.9-15.9); WHITE BLOOD COUNT 5.3 K/mm3 (4.0-10.0)
[2022-03-18 16:26] LABS: ALBUMIN 3.4 g/dl (3.4-5.0); CALCIUM 8.7 mg/dL (8.5-10.1)
[2022-03-18 16:29] LABS: CREATININE 1.1 mg/dL (0.55-1.3)
[2022-03-18 16:31] LABS: BILIRUBIN,TOTAL 0.2 mg/dL (0.2-1); TOT PROT 6.6 g/dl (6.4-8.2)
[2022-03-18] MEDS ORDERED: POTASSIUM CHLORIDE TABS 20 MEQ TABLET.ER (FP) PO ONE (16:49)
[2022-03-18] MEDS: chlordiazePOXIDE HCL 25 MG CAPSULE PO SCH ×2 (17:39→23:39)
[2022-03-18] MEDS: MELATONIN 5 MG TABLETS PO SCH (23:40)
[2022-03-18] MEDS: THIAMINE HCL 100 MG TABLET (FP) PO SCH (23:40)
[2022-03-19] MEDS: chlordiazePOXIDE HCL 25 MG CAPSULE PO SCH ×4 (05:39→22:46)
[2022-03-19] MEDS: NICOTINE 7 MG/24 HOURS TOPICAL PATCH TD SCH (10:29)
[2022-03-19] MEDS: PRENATAL VITAMINS W/ FOLIC ACID TABLET (FP) PO SCH (10:29)
[2022-03-19] MEDS: THIAMINE HCL 100 MG TABLET (FP) PO SCH (22:08)
[2022-03-19] MEDS: MELATONIN 5 MG TABLETS PO SCH (22:09)
[2022-03-19] MEDS: chlordiazePOXIDE HCL 25 MG CAPSULE PO PRN (22:10)
[2022-03-20] MEDS: chlordiazePOXIDE HCL 25 MG CAPSULE PO SCH ×4 (05:52→22:37)
[2022-03-20] MEDS: NICOTINE 7 MG/24 HOURS TOPICAL PATCH TD SCH (10:45)
[2022-03-20] MEDS: PRENATAL VITAMINS W/ FOLIC ACID TABLET (FP) PO SCH (10:45)
[2022-03-20] MEDS: MELATONIN 5 MG TABLETS PO SCH (22:37)
[2022-03-20] MEDS: THIAMINE HCL 100 MG TABLET (FP) PO SCH (22:37)
[2022-03-21] MEDS ORDERED: chlordiazePOXIDE HCL 10 MG CAPSULE PO PRN
[2022-03-21] MEDS: chlordiazePOXIDE HCL 10 MG CAPSULE PO SCH ×4 (05:37→22:16)
[2022-03-21] MEDS: PRENATAL VITAMINS W/ FOLIC ACID TABLET (FP) PO SCH (10:31)
[2022-03-21] MEDS: NICOTINE 7 MG/24 HOURS TOPICAL PATCH TD SCH (10:33)
[2022-03-21] MEDS: THIAMINE HCL 100 MG TABLET (FP) PO SCH (22:17)
[2022-03-21] MEDS: MELATONIN 5 MG TABLETS PO SCH (22:17)
[2022-03-22] MEDS: chlordiazePOXIDE HCL 10 MG CAPSULE PO SCH ×2 (05:48→17:45)
[2022-03-22] MEDS: PRENATAL VITAMINS W/ FOLIC ACID TABLET (FP) PO SCH (10:13)
[2022-03-22] MEDS: NICOTINE 7 MG/24 HOURS TOPICAL PATCH TD SCH (10:13)
[2022-03-22] MEDS: MELATONIN 5 MG TABLETS PO SCH (22:12)
[2022-03-22] MEDS: THIAMINE HCL 100 MG TABLET (FP) PO SCH (22:12)
[2022-03-23] MEDS ORDERED: chlordiazePOXIDE HCL 10 MG CAPSULE PO ONE (05:00)
[2022-03-23 09:48] VITALS: BP 123/70; PULSE 81; RESP 17; TEMP 96.9
[2022-03-23] MEDS: NICOTINE 7 MG/24 HOURS TOPICAL PATCH TD SCH (10:56)
[2022-03-23] MEDS: PRENATAL VITAMINS W/ FOLIC ACID TABLET (FP) PO SCH (10:56)
== END 2022-03-23 13:57 | disposition other institution (70) | DRG 774 ==
LOC: YASAS 10:22 → Y6N 11:52
PROVIDERS: ADMIT Allergy & Immunology; ATTEND Surgery
PROC: HZ2ZZZZ Detoxification Services for Substance Abuse Treatment (ICD-10-PCS; principal; 2022-03-18)
DX: F10.230 Alcohol dependence with withdrawal, uncomplicated (principal); F14.20 Cocaine dependence, uncomplicated; F12.20 Cannabis dependence, uncomplicated; F17.210 Nicotine dependence, cigarettes, uncomplicated; R76.11 Nonspecific reaction to tuberculin skin test without active tuberculosis; Z92.89 Personal history of other medical treatment; Z56.0 Unemployment, unspecified; Z59.00 Homelessness unspecified
CPT/HCPCS: 36415; 71046-TC-FY; 80053; 82140; 84132; 85027; 86780; 87811; C9803-CS; U0003; U0005

== ENCOUNTER 2022-03-23 11:29 | Inpatient (IN) | payer OTHER ==
[2022-03-23] MEDS ORDERED: BENZOCAINE/MENTHOL (CHLORASEPTIC ) LOZENGE MM PRN ×2 (14:13→14:56)
[2022-03-23] MEDS ORDERED: P-EPHED 60MG/TRIPROLIDI 2.5MG TABLET PO PRN ×2 (14:13→14:56)
[2022-03-23] MEDS ORDERED: hydrOXYzine PAMOATE 25 MG CAPSULE (FP) PO PRN ×2 (14:13→14:56)
[2022-03-23] MEDS ORDERED: MAG HYDROX/AL HYDROX/SIMETH 30 ML UNIT-DOSE CUP PO PRN ×2 (14:13→14:56)
[2022-03-23] MEDS ORDERED: MAGNESIUM HYDROX 2400MG/30ML ORAL SUSPENSION 30 ML CUP PO PRN ×2 (14:13→14:56)
[2022-03-23] MEDS ORDERED: NICOTINE 10 MG CARTRIDGE (INHALER) IH PRN ×2 (14:13→14:56)
[2022-03-23] MEDS ORDERED: NICOTINE 7 MG/24 HOURS TOPICAL PATCH TD PRN (14:13)
[2022-03-23] MEDS ORDERED: ACETAMINOPHEN 325 MG TABLET (FP) PO PRN ×2 (14:13→14:56)
[2022-03-23] MEDS ORDERED: NICOTINE POLACRILEX 2 MG GUM BC PRN (14:13)
[2022-03-23] MEDS ORDERED: guaiFENesin 200 MG/10 ML 10 ML UNIT-DOSE CUPS PO PRN ×2 (14:13→14:56)
[2022-03-23] MEDS ORDERED: POLYETHYLENE GLYCOL (HEALTHYLAX) 3350 17 GM PACKET PO PRN ×2 (14:13→14:56)
[2022-03-23] MEDS ORDERED: IBUPROFEN 400 MG TABLET (FP) PO PRN ×2 (14:13→14:56)
[2022-03-23] MEDS ORDERED: LOPERAMIDE HCL 2 MG CAPSULE PO PRN ×2 (14:13→14:56)
[2022-03-23] MEDS ORDERED: NICOTINE POLACRILEX 4 MG GUM BUC PRN (14:56)
[2022-03-23 20:44] VITALS: RESP 16; TEMP 97.1
[2022-03-23] MEDS ORDERED: THIAMINE HCL 100 MG TABLET (FP) PO SCH ×2 (22:00)
[2022-03-23] MEDS ORDERED: MELATONIN 5 MG TABLETS PO SCH ×2 (22:00)
[2022-03-24 07:19] VITALS: BP 127/84; PULSE 64
[2022-03-24] MEDS ORDERED: PRENATAL VITAMINS W/ FOLIC ACID TABLET (FP) PO SCH ×2 (10:00)
[2022-03-24] MEDS ORDERED: NICOTINE 7 MG/24 HOURS TOPICAL PATCH TD SCH (10:00)
== END 2022-03-24 15:45 | disposition left against medical advice (07) | DRG 770 ==
LOC: YASAS 11:29 → Y3E 11:30
PROVIDERS: ADMIT Allergy & Immunology; ATTEND Psychiatry & Neurology Pain Medicine
PROC: HZ42ZZZ Group Counseling for Substance Abuse Treatment, Cognitive-Behavioral (ICD-10-PCS; principal; 2022-03-23)
DX: F10.20 Alcohol dependence, uncomplicated (principal); F14.20 Cocaine dependence, uncomplicated; F12.20 Cannabis dependence, uncomplicated; F17.210 Nicotine dependence, cigarettes, uncomplicated; F41.9 Anxiety disorder, unspecified; G47.00 Insomnia, unspecified; R76.11 Nonspecific reaction to tuberculin skin test without active tuberculosis; Z59.00 Homelessness unspecified

== ENCOUNTER 2022-05-05 13:12 | Inpatient (IN) | payer OTHER ==
[2022-05-05 14:36] VITALS: BMI 20.7
[2022-05-05] MEDS ORDERED: POLYETHYLENE GLYCOL (HEALTHYLAX) 3350 17 GM PACKET PO PRN (16:42)
[2022-05-05] MEDS ORDERED: ACETAMINOPHEN 325 MG TABLET (FP) PO PRN ×2 (16:42)
[2022-05-05] MEDS ORDERED: MAG HYDROX/AL HYDROX/SIMETH 30 ML UNIT-DOSE CUP PO PRN (16:42)
[2022-05-05] MEDS ORDERED: IBUPROFEN 400 MG TABLET (FP) PO PRN (16:42)
[2022-05-05] MEDS ORDERED: hydrOXYzine PAMOATE 25 MG CAPSULE (FP) PO PRN (16:42)
[2022-05-05] MEDS ORDERED: DICYCLOMINE HCL 10 MG CAPSULE PO PRN (16:42)
[2022-05-05] MEDS ORDERED: P-EPHED 60MG/TRIPROLIDI 2.5MG TABLET PO PRN (16:42)
[2022-05-05] MEDS ORDERED: LOPERAMIDE HCL 2 MG CAPSULE PO PRN (16:42)
[2022-05-05] MEDS ORDERED: BISMUTH SUBSALICYLATE 524 MG/30 ML PO PRN (16:42)
[2022-05-05] MEDS ORDERED: ONDANSETRON *ODT* 4 MG TABLET SL PRN (16:42)
[2022-05-05] MEDS ORDERED: IBUPROFEN 600 MG TABLET (FP) PO PRN (16:42)
[2022-05-05] MEDS ORDERED: guaiFENesin 200 MG/10 ML 10 ML UNIT-DOSE CUPS PO PRN (16:42)
[2022-05-05] MEDS ORDERED: BENZOCAINE/MENTHOL (CHLORASEPTIC ) LOZENGE MM PRN (16:42)
[2022-05-05] MEDS ORDERED: MAGNESIUM HYDROX 2400MG/30ML ORAL SUSPENSION 30 ML CUP PO PRN (16:42)
[2022-05-05] MEDS ORDERED: diazePAM 5 MG TABLET PO PRN (16:43)
[2022-05-05] MEDS: METHOCARBAMOL 500 MG TABLET PO PRN (19:22)
[2022-05-05] MEDS: THIAMINE HCL 100 MG TABLET (FP) PO SCH (22:27)
[2022-05-05] MEDS: MELATONIN 5 MG TABLETS PO SCH (22:27)
[2022-05-06] MEDS: PRENATAL VITAMINS W/ FOLIC ACID TABLET (FP) PO SCH (10:09)
[2022-05-06] MEDS ORDERED: chlordiazePOXIDE HCL 25 MG CAPSULE PO PRN (10:10)
[2022-05-06] MEDS: chlordiazePOXIDE HCL 25 MG CAPSULE PO SCH ×3 (10:23→22:45)
[2022-05-06 11:07] LABS: HEMATOCRIT 44.6 % (35.4-49); HEMOGLOBIN 14.6 GM/dL (11.7-16.9); MCH 31.6 pg (25.7-33.7); MCHC 32.8 g/dl (32.0-35.9); MEAN CELL VOLUME 96.3 fl (80-96); MEAN PLT VOLUME 9.1 fl (7.5-11.1); PLATELET COUNT 284 10^3/uL (134-434); RBC 4.63 M/mm3 (4.00-5.60); RDW 13.8 % (11.9-15.9); WHITE BLOOD COUNT 4.4 K/mm3 (4.0-10.0)
[2022-05-06 11:11] LABS: CALCIUM 9.1 mg/dL (8.5-10.1)
[2022-05-06 11:12] LABS: BLOOD UREA NITROGEN 20.1 mg/dL (7-18)
[2022-05-06 11:13] LABS: ALBUMIN 3.7 g/dl (3.4-5.0)
[2022-05-06 11:16] LABS: TOT PROT 7.3 g/dl (6.4-8.2)
[2022-05-06 11:17] LABS: BILIRUBIN,TOTAL 0.4 mg/dL (0.2-1)
[2022-05-06] MEDS: THIAMINE HCL 100 MG TABLET (FP) PO SCH (22:44)
[2022-05-06] MEDS: MELATONIN 5 MG TABLETS PO SCH (22:44)
[2022-05-07] MEDS: chlordiazePOXIDE HCL 25 MG CAPSULE PO SCH ×4 (05:29→22:20)
[2022-05-07] MEDS: PRENATAL VITAMINS W/ FOLIC ACID TABLET (FP) PO SCH (10:27)
[2022-05-07] MEDS: THIAMINE HCL 100 MG TABLET (FP) PO SCH (22:20)
[2022-05-07] MEDS: MELATONIN 5 MG TABLETS PO SCH (22:20)
[2022-05-07] MEDS: METHOCARBAMOL 500 MG TABLET PO PRN (22:22)
[2022-05-08] MEDS: chlordiazePOXIDE HCL 25 MG CAPSULE PO SCH ×4 (05:30→22:46)
[2022-05-08] MEDS: PRENATAL VITAMINS W/ FOLIC ACID TABLET (FP) PO SCH (10:36)
[2022-05-08] MEDS: THIAMINE HCL 100 MG TABLET (FP) PO SCH (22:41)
[2022-05-08] MEDS: MELATONIN 5 MG TABLETS PO SCH (22:41)
[2022-05-09] MEDS ORDERED: chlordiazePOXIDE HCL 10 MG CAPSULE PO PRN
[2022-05-09] MEDS: chlordiazePOXIDE HCL 10 MG CAPSULE PO SCH ×4 (05:37→23:14)
[2022-05-09] MEDS: PRENATAL VITAMINS W/ FOLIC ACID TABLET (FP) PO SCH (10:26)
[2022-05-09] MEDS: MELATONIN 5 MG TABLETS PO SCH (23:13)
[2022-05-09] MEDS: THIAMINE HCL 100 MG TABLET (FP) PO SCH (23:13)
[2022-05-10] MEDS: chlordiazePOXIDE HCL 10 MG CAPSULE PO SCH ×2 (06:29→17:56)
[2022-05-10] MEDS: PRENATAL VITAMINS W/ FOLIC ACID TABLET (FP) PO SCH (10:34)
[2022-05-10] MEDS: MELATONIN 5 MG TABLETS PO SCH (22:44)
[2022-05-10] MEDS: THIAMINE HCL 100 MG TABLET (FP) PO SCH (22:44)
[2022-05-11] MEDS ORDERED: chlordiazePOXIDE HCL 10 MG CAPSULE PO ONE (05:00)
[2022-05-11] MEDS: PRENATAL VITAMINS W/ FOLIC ACID TABLET (FP) PO SCH (10:03)
[2022-05-11 17:30] VITALS: BP 112/65; PULSE 72; RESP 18; TEMP 97.8
== END 2022-05-11 19:37 | disposition home or self-care (01) | DRG 774 ==
LOC: YASAS 13:12 → Y3N 16:59
PROVIDERS: ADMIT Allergy & Immunology; ATTEND Surgery
PROC: HZ2ZZZZ Detoxification Services for Substance Abuse Treatment (ICD-10-PCS; principal; 2022-05-05)
DX: F10.230 Alcohol dependence with withdrawal, uncomplicated (principal); F14.20 Cocaine dependence, uncomplicated; F12.20 Cannabis dependence, uncomplicated; F17.210 Nicotine dependence, cigarettes, uncomplicated; R73.9 Hyperglycemia, unspecified; R76.11 Nonspecific reaction to tuberculin skin test without active tuberculosis; R74.01 Elevation of levels of liver transaminase levels; R79.89 Other specified abnormal findings of blood chemistry
CPT/HCPCS: 36415; 80053; 82140; 85027; 86780; C9803-CS; U0003; U0005

== ENCOUNTER 2022-06-12 15:27 | Inpatient (IN) | payer OTHER ==
[2022-06-12 18:11] VITALS: BMI 18.3
[2022-06-12] MEDS ORDERED: NALOXONE HCL (KLOXXADO) 8 MG SPRAY NS PRN (20:37)
[2022-06-12] MEDS ORDERED: ACETAMINOPHEN 325 MG TABLET (FP) PO PRN ×2 (20:37)
[2022-06-12] MEDS ORDERED: ONDANSETRON *ODT* 4 MG TABLET SL PRN (20:37)
[2022-06-12] MEDS ORDERED: DICYCLOMINE HCL 10 MG CAPSULE PO PRN (20:37)
[2022-06-12] MEDS ORDERED: chlordiazePOXIDE HCL 25 MG CAPSULE PO PRN (20:37)
[2022-06-12] MEDS ORDERED: METHOCARBAMOL 500 MG TABLET PO PRN (20:37)
[2022-06-12] MEDS ORDERED: MAGNESIUM HYDROX 2400MG/30ML ORAL SUSPENSION 30 ML CUP PO PRN (20:37)
[2022-06-12] MEDS ORDERED: IBUPROFEN 600 MG TABLET (FP) PO PRN (20:37)
[2022-06-12] MEDS ORDERED: NICOTINE POLACRILEX 2 MG GUM BUC PRN (20:37)
[2022-06-12] MEDS ORDERED: BISMUTH SUBSALICYLATE 524 MG/30 ML PO PRN (20:37)
[2022-06-12] MEDS ORDERED: LOPERAMIDE HCL 2 MG CAPSULE PO PRN (20:37)
[2022-06-12] MEDS ORDERED: MAG HYDROX/AL HYDROX/SIMETH 30 ML UNIT-DOSE CUP PO PRN (20:37)
[2022-06-12] MEDS ORDERED: POLYETHYLENE GLYCOL (HEALTHYLAX) 3350 17 GM PACKET PO PRN (20:37)
[2022-06-12] MEDS ORDERED: IBUPROFEN 400 MG TABLET (FP) PO PRN (20:37)
[2022-06-12] MEDS ORDERED: BENZOCAINE/MENTHOL (CHLORASEPTIC ) LOZENGE MM PRN (20:37)
[2022-06-13] MEDS: chlordiazePOXIDE HCL 25 MG CAPSULE PO SCH ×5 (02:20→22:25)
[2022-06-13] MEDS: THIAMINE HCL 100 MG TABLET (FP) PO SCH ×2 (02:20→22:27)
[2022-06-13] MEDS: MELATONIN 5 MG TABLETS PO SCH ×2 (02:21→22:27)
[2022-06-13 10:52] LABS: HEMATOCRIT 36.2 % (35.4-49); HEMOGLOBIN 12.1 GM/dL (11.7-16.9); MCH 31.9 pg (25.7-33.7); MCHC 33.4 g/dl (32.0-35.9); MEAN CELL VOLUME 95.5 fl (80-96); MEAN PLT VOLUME 8.8 fl (7.5-11.1); PLATELET COUNT 232 10^3/uL (134-434); RBC 3.79 M/mm3 (4.00-5.60); RDW 13.7 % (11.9-15.9); WHITE BLOOD COUNT 4.9 K/mm3 (4.0-10.0)
[2022-06-13] MEDS: PRENATAL VITAMINS W/ FOLIC ACID TABLET (FP) PO SCH (10:53)
[2022-06-13 11:18] LABS: CALCIUM 8.7 mg/dL (8.5-10.1)
[2022-06-13 11:19] LABS: ALBUMIN 3.2 g/dl (3.4-5.0); BLOOD UREA NITROGEN 24.4 mg/dL (7-18)
[2022-06-13 11:25] LABS: BILIRUBIN,TOTAL 0.3 mg/dL (0.2-1)
[2022-06-14] MEDS: chlordiazePOXIDE HCL 25 MG CAPSULE PO SCH ×4 (05:59→22:32)
[2022-06-14] MEDS: PRENATAL VITAMINS W/ FOLIC ACID TABLET (FP) PO SCH (10:16)
[2022-06-14] MEDS: THIAMINE HCL 100 MG TABLET (FP) PO SCH (22:32)
[2022-06-14] MEDS: MELATONIN 5 MG TABLETS PO SCH (22:34)
[2022-06-15] MEDS ORDERED: chlordiazePOXIDE HCL 10 MG CAPSULE PO PRN
[2022-06-15] MEDS: chlordiazePOXIDE HCL 10 MG CAPSULE PO SCH ×4 (05:16→22:14)
[2022-06-15] MEDS: PRENATAL VITAMINS W/ FOLIC ACID TABLET (FP) PO SCH (10:44)
[2022-06-15] MEDS: THIAMINE HCL 100 MG TABLET (FP) PO SCH (22:13)
[2022-06-15] MEDS: MELATONIN 5 MG TABLETS PO SCH (22:15)
[2022-06-16] MEDS: chlordiazePOXIDE HCL 10 MG CAPSULE PO SCH ×2 (05:55→17:54)
[2022-06-16] MEDS: PRENATAL VITAMINS W/ FOLIC ACID TABLET (FP) PO SCH (10:28)
[2022-06-16 16:51] VITALS: BP 100/51; PULSE 80; RESP 18; TEMP 97.6
[2022-06-17] MEDS ORDERED: chlordiazePOXIDE HCL 10 MG CAPSULE PO ONE (05:00)
== END 2022-06-16 18:35 | disposition other institution (70) | DRG 774 ==
LOC: YASAS 15:27 → Y3N 23:49 → UNDOADMIN 23:49
PROVIDERS: ADMIT Allergy & Immunology; ATTEND Surgery
PROC: HZ2ZZZZ Detoxification Services for Substance Abuse Treatment (ICD-10-PCS; principal; 2022-06-12)
DX: F10.230 Alcohol dependence with withdrawal, uncomplicated (principal); F14.20 Cocaine dependence, uncomplicated; F12.20 Cannabis dependence, uncomplicated; F17.210 Nicotine dependence, cigarettes, uncomplicated; Z86.11 Personal history of tuberculosis
CPT/HCPCS: 36415; 80053; 85027; 86780; 93005; 93010; C9803-CS; U0003; U0005

== ENCOUNTER 2022-06-16 18:39 | Inpatient (IN) | payer OTHER ==
[2022-06-16] MEDS ORDERED: IBUPROFEN 400 MG TABLET (FP) PO PRN (18:52)
[2022-06-16] MEDS ORDERED: BENZOCAINE/MENTHOL (CHLORASEPTIC ) LOZENGE MM PRN (18:52)
[2022-06-16] MEDS ORDERED: guaiFENesin 200 MG/10 ML 10 ML UNIT-DOSE CUPS PO PRN (18:52)
[2022-06-16] MEDS ORDERED: hydrOXYzine PAMOATE 25 MG CAPSULE (FP) PO PRN (18:52)
[2022-06-16] MEDS ORDERED: MAG HYDROX/AL HYDROX/SIMETH 30 ML UNIT-DOSE CUP PO PRN (18:52)
[2022-06-16] MEDS ORDERED: POLYETHYLENE GLYCOL (HEALTHYLAX) 3350 17 GM PACKET PO PRN (18:52)
[2022-06-16] MEDS ORDERED: NICOTINE 10 MG CARTRIDGE (INHALER) IH PRN (18:52)
[2022-06-16] MEDS ORDERED: MAGNESIUM HYDROX 2400MG/30ML ORAL SUSPENSION 30 ML CUP PO PRN (18:52)
[2022-06-16] MEDS ORDERED: LOPERAMIDE HCL 2 MG CAPSULE PO PRN (18:52)
[2022-06-16] MEDS ORDERED: P-EPHED 60MG/TRIPROLIDI 2.5MG TABLET PO PRN (18:52)
[2022-06-16] MEDS ORDERED: ACETAMINOPHEN 325 MG TABLET (FP) PO PRN (18:52)
[2022-06-16] MEDS: MELATONIN 5 MG TABLETS PO SCH (21:34)
[2022-06-16] MEDS: THIAMINE HCL 100 MG TABLET (FP) PO SCH (21:34)
[2022-06-16 22:29] VITALS: BMI 21.2
[2022-06-17] MEDS: PRENATAL VITAMINS W/ FOLIC ACID TABLET (FP) PO SCH (10:03)
[2022-06-17] MEDS: MELATONIN 5 MG TABLETS PO SCH (22:18)
[2022-06-17] MEDS: THIAMINE HCL 100 MG TABLET (FP) PO SCH (22:19)
[2022-06-18] MEDS: PRENATAL VITAMINS W/ FOLIC ACID TABLET (FP) PO SCH (09:55)
[2022-06-18] MEDS: MELATONIN 5 MG TABLETS PO SCH (21:42)
[2022-06-18] MEDS: THIAMINE HCL 100 MG TABLET (FP) PO SCH (21:42)
[2022-06-19] MEDS: PRENATAL VITAMINS W/ FOLIC ACID TABLET (FP) PO SCH (10:21)
[2022-06-19] MEDS: MELATONIN 5 MG TABLETS PO SCH (23:13)
[2022-06-19] MEDS: THIAMINE HCL 100 MG TABLET (FP) PO SCH (23:13)
[2022-06-20] MEDS: PRENATAL VITAMINS W/ FOLIC ACID TABLET (FP) PO SCH (10:15)
[2022-06-20] MEDS: MELATONIN 5 MG TABLETS PO SCH (21:40)
[2022-06-20] MEDS: THIAMINE HCL 100 MG TABLET (FP) PO SCH (21:40)
[2022-06-21] MEDS: PRENATAL VITAMINS W/ FOLIC ACID TABLET (FP) PO SCH (09:49)
[2022-06-21] MEDS: THIAMINE HCL 100 MG TABLET (FP) PO SCH (21:41)
[2022-06-21] MEDS: MELATONIN 5 MG TABLETS PO SCH (21:41)
[2022-06-22] MEDS: PRENATAL VITAMINS W/ FOLIC ACID TABLET (FP) PO SCH (09:25)
[2022-06-22] MEDS: MELATONIN 5 MG TABLETS PO SCH (21:39)
[2022-06-22] MEDS: THIAMINE HCL 100 MG TABLET (FP) PO SCH (21:39)
[2022-06-23] MEDS: PRENATAL VITAMINS W/ FOLIC ACID TABLET (FP) PO SCH (10:24)
[2022-06-23] MEDS: THIAMINE HCL 100 MG TABLET (FP) PO SCH (21:23)
[2022-06-23] MEDS: MELATONIN 5 MG TABLETS PO SCH (21:23)
[2022-06-24] MEDS: PRENATAL VITAMINS W/ FOLIC ACID TABLET (FP) PO SCH (10:23)
[2022-06-24] MEDS: MELATONIN 5 MG TABLETS PO SCH (22:00)
[2022-06-24] MEDS: THIAMINE HCL 100 MG TABLET (FP) PO SCH (22:00)
[2022-06-25] MEDS: PRENATAL VITAMINS W/ FOLIC ACID TABLET (FP) PO SCH (10:16)
[2022-06-25] MEDS: THIAMINE HCL 100 MG TABLET (FP) PO SCH (21:28)
[2022-06-25] MEDS: MELATONIN 5 MG TABLETS PO SCH (21:29)
[2022-06-26] MEDS: MELATONIN 5 MG TABLETS PO SCH (21:44)
[2022-06-26] MEDS: THIAMINE HCL 100 MG TABLET (FP) PO SCH (21:45)
[2022-06-27] MEDS: MELATONIN 5 MG TABLETS PO SCH (21:31)
[2022-06-27] MEDS: THIAMINE HCL 100 MG TABLET (FP) PO SCH (21:31)
[2022-06-28] MEDS: THIAMINE HCL 100 MG TABLET (FP) PO SCH (21:17)
[2022-06-28] MEDS: MELATONIN 5 MG TABLETS PO SCH (21:18)
[2022-06-29] MEDS: THIAMINE HCL 100 MG TABLET (FP) PO SCH (21:34)
[2022-06-29] MEDS: MELATONIN 5 MG TABLETS PO SCH (21:35)
[2022-06-30 06:52] VITALS: BP 107/69; PULSE 64; RESP 20; TEMP 97.1
== END 2022-06-30 09:12 | disposition home or self-care (01) | DRG 772 ==
LOC: YASAS 18:39 → Y3E 18:41
PROVIDERS: ADMIT Allergy & Immunology; ATTEND Allergy & Immunology
PROC: HZ42ZZZ Group Counseling for Substance Abuse Treatment, Cognitive-Behavioral (ICD-10-PCS; principal; 2022-06-16)
DX: F10.20 Alcohol dependence, uncomplicated (principal); F14.20 Cocaine dependence, uncomplicated; F12.20 Cannabis dependence, uncomplicated; F17.210 Nicotine dependence, cigarettes, uncomplicated; R73.9 Hyperglycemia, unspecified; Z86.11 Personal history of tuberculosis
CPT/HCPCS: 36415; 71046-TC-FY; 86803

== ENCOUNTER 2022-08-27 09:58 | Inpatient (IN) | payer OTHER ==
[2022-08-27 10:32] VITALS: BMI 22.7
[2022-08-27] MEDS ORDERED: AMMONIUM LACTATE 12% LOTION 225 GM BOTTLE TP PRN (11:06)
[2022-08-27] MEDS ORDERED: POLYETHYLENE GLYCOL (HEALTHYLAX) 3350 17 GM PACKET PO PRN (11:06)
[2022-08-27] MEDS ORDERED: METHOCARBAMOL 500 MG TABLET PO PRN (11:06)
[2022-08-27] MEDS ORDERED: IBUPROFEN 600 MG TABLET (FP) PO PRN (11:06)
[2022-08-27] MEDS ORDERED: MAG HYDROX/AL HYDROX/SIMETH 30 ML UNIT-DOSE CUP PO PRN (11:06)
[2022-08-27] MEDS ORDERED: IBUPROFEN 400 MG TABLET (FP) PO PRN (11:06)
[2022-08-27] MEDS ORDERED: BISMUTH SUBSALICYLATE 524 MG/30 ML PO PRN (11:06)
[2022-08-27] MEDS ORDERED: NICOTINE 10 MG CARTRIDGE (INHALER) IH PRN (11:06)
[2022-08-27] MEDS ORDERED: BENZOCAINE/MENTHOL (CHLORASEPTIC ) LOZENGE MM PRN (11:06)
[2022-08-27] MEDS ORDERED: NICOTINE POLACRILEX 2 MG GUM BUC PRN (11:06)
[2022-08-27] MEDS ORDERED: NALOXONE HCL (KLOXXADO) 8 MG SPRAY NS PRN (11:06)
[2022-08-27] MEDS ORDERED: BENZONATATE 200 MG CAPSULE PO PRN (11:06)
[2022-08-27] MEDS ORDERED: ONDANSETRON *ODT* 4 MG TABLET SL PRN (11:06)
[2022-08-27] MEDS ORDERED: LOPERAMIDE HCL 2 MG CAPSULE PO PRN (11:06)
[2022-08-27] MEDS ORDERED: NALOXONE HCL 0.4 MG/ML VIAL IM PRN (11:06)
[2022-08-27] MEDS ORDERED: DICYCLOMINE HCL 10 MG CAPSULE PO PRN (11:06)
[2022-08-27] MEDS ORDERED: guaiFENesin 600 MG TABLET.ER (FP) PO PRN (11:06)
[2022-08-27] MEDS ORDERED: ACETAMINOPHEN 325 MG TABLET (FP) PO PRN (11:06)
[2022-08-27] MEDS ORDERED: COLLOIDAL OATMEAL 1 BAR EACH TP PRN (11:06)
[2022-08-27] MEDS ORDERED: MAGNESIUM HYDROX 2400MG/30ML ORAL SUSPENSION 30 ML CUP PO PRN (11:06)
[2022-08-27] MEDS: chlordiazePOXIDE HCL 25 MG CAPSULE PO SCH ×3 (11:24→22:43)
[2022-08-27] MEDS ORDERED: chlordiazePOXIDE HCL 25 MG CAPSULE ONE (11:27)
[2022-08-27 14:44] LABS: HEMATOCRIT 36.1 % (35.4-49); HEMOGLOBIN 12.6 GM/dL (11.7-16.9); MCH 31.5 pg (25.7-33.7); MCHC 34.8 g/dl (32.0-35.9); MEAN CELL VOLUME 90.4 fl (80-96); MEAN PLT VOLUME 9.1 fl (7.5-11.1); PLATELET COUNT 248 10^3/uL (134-434); RBC 3.99 M/mm3 (4.00-5.60); RDW 12.8 % (11.9-15.9); WHITE BLOOD COUNT 6.4 K/mm3 (4.0-10.0)
[2022-08-27 14:46] LABS: POTASSIUM 3.5 mmol/L (3.5-5.1)
[2022-08-27 14:48] LABS: ALBUMIN 3.6 g/dl (3.4-5.0); BLOOD UREA NITROGEN 17.6 mg/dL (7-18); CALCIUM 8.9 mg/dL (8.5-10.1)
[2022-08-27 14:52] LABS: BILIRUBIN,TOTAL 0.5 mg/dL (0.2-1); CREATININE 1.1 mg/dL (0.55-1.3)
[2022-08-27 14:54] LABS: TOT PROT 6.9 g/dl (6.4-8.2)
[2022-08-27] MEDS: MELATONIN 5 MG TABLETS PO SCH (22:41)
[2022-08-27] MEDS: THIAMINE HCL 100 MG TABLET (FP) PO SCH (22:41)
[2022-08-28] MEDS: chlordiazePOXIDE HCL 25 MG CAPSULE PO SCH ×4 (05:55→22:32)
[2022-08-28] MEDS: PRENATAL VITAMINS W/ FOLIC ACID TABLET (FP) PO SCH (10:32)
[2022-08-28] MEDS: MELATONIN 5 MG TABLETS PO SCH (22:18)
[2022-08-28] MEDS: THIAMINE HCL 100 MG TABLET (FP) PO SCH (22:32)
[2022-08-29] MEDS: chlordiazePOXIDE HCL 25 MG CAPSULE PO SCH ×3 (05:40→17:54)
[2022-08-29] MEDS: PRENATAL VITAMINS W/ FOLIC ACID TABLET (FP) PO SCH (10:08)
[2022-08-29 18:10] VITALS: BP 119/66; PULSE 90; RESP 18; TEMP 97.3
[2022-08-30] MEDS ORDERED: chlordiazePOXIDE HCL 10 MG CAPSULE PO SCH (05:00)
[2022-08-31] MEDS ORDERED: chlordiazePOXIDE HCL 10 MG CAPSULE PO SCH (05:00)
[2022-09-01] MEDS ORDERED: chlordiazePOXIDE HCL 10 MG CAPSULE PO ONE (05:00)
== END 2022-08-29 17:20 | disposition left against medical advice (07) | DRG 770 ==
LOC: YASAS 09:58 → Y6N 11:18
PROVIDERS: ADMIT Allergy & Immunology; ATTEND Surgery
PROC: HZ2ZZZZ Detoxification Services for Substance Abuse Treatment (ICD-10-PCS; principal; 2022-08-27)
DX: F10.230 Alcohol dependence with withdrawal, uncomplicated (principal); F14.20 Cocaine dependence, uncomplicated; F17.210 Nicotine dependence, cigarettes, uncomplicated; L85.0 Acquired ichthyosis
CPT/HCPCS: 36415; 80053; 85027; 86780; C9803-CS; U0003; U0005

== ENCOUNTER 2022-09-28 10:06 | Inpatient (IN) | payer OTHER ==
[2022-09-28 10:53] VITALS: BMI 20.9
[2022-09-28] MEDS ORDERED: MAGNESIUM HYDROX 2400MG/30ML ORAL SUSPENSION 30 ML CUP PO PRN (13:11)
[2022-09-28] MEDS ORDERED: BENZONATATE 200 MG CAPSULE PO PRN (13:11)
[2022-09-28] MEDS ORDERED: BISMUTH SUBSALICYLATE 524 MG/30 ML PO PRN (13:11)
[2022-09-28] MEDS ORDERED: MAG HYDROX/AL HYDROX/SIMETH 30 ML UNIT-DOSE CUP PO PRN (13:11)
[2022-09-28] MEDS ORDERED: IBUPROFEN 400 MG TABLET (FP) PO PRN (13:11)
[2022-09-28] MEDS ORDERED: ONDANSETRON *ODT* 4 MG TABLET SL PRN (13:11)
[2022-09-28] MEDS ORDERED: chlordiazePOXIDE HCL 25 MG CAPSULE PO PRN (13:11)
[2022-09-28] MEDS ORDERED: BENZOCAINE/MENTHOL (CHLORASEPTIC ) LOZENGE MM PRN (13:11)
[2022-09-28] MEDS ORDERED: IBUPROFEN 600 MG TABLET (FP) PO PRN (13:11)
[2022-09-28] MEDS ORDERED: LOPERAMIDE HCL 2 MG CAPSULE PO PRN (13:11)
[2022-09-28] MEDS ORDERED: NICOTINE 10 MG CARTRIDGE (INHALER) IH PRN (13:11)
[2022-09-28] MEDS ORDERED: POLYETHYLENE GLYCOL (HEALTHYLAX) 3350 17 GM PACKET PO PRN (13:11)
[2022-09-28] MEDS ORDERED: hydrOXYzine PAMOATE 25 MG CAPSULE (FP) PO PRN (13:11)
[2022-09-28] MEDS ORDERED: NALOXONE HCL 0.4 MG/ML VIAL IM PRN (13:11)
[2022-09-28] MEDS ORDERED: guaiFENesin 600 MG TABLET.ER (FP) PO PRN (13:11)
[2022-09-28] MEDS ORDERED: NALOXONE HCL (KLOXXADO) 8 MG SPRAY NS PRN (13:11)
[2022-09-28] MEDS ORDERED: DICYCLOMINE HCL 10 MG CAPSULE PO PRN (13:11)
[2022-09-28] MEDS ORDERED: METHOCARBAMOL 500 MG TABLET PO PRN (13:11)
[2022-09-28] MEDS ORDERED: ACETAMINOPHEN 325 MG TABLET (FP) PO PRN (13:11)
[2022-09-28] MEDS: chlordiazePOXIDE HCL 25 MG CAPSULE PO SCH ×2 (17:01→22:34)
[2022-09-28] MEDS: THIAMINE HCL 100 MG TABLET (FP) PO SCH (22:34)
[2022-09-28] MEDS: MELATONIN 5 MG TABLETS PO SCH (22:34)
[2022-09-29] MEDS: chlordiazePOXIDE HCL 25 MG CAPSULE PO SCH ×4 (05:41→22:26)
[2022-09-29] MEDS: PRENATAL VITAMINS W/ FOLIC ACID TABLET (FP) PO SCH (10:21)
[2022-09-29 11:02] LABS: POTASSIUM 4.3 mmol/L (3.5-5.1)
[2022-09-29 11:16] LABS: HEMATOCRIT 38.6 % (35.4-49); HEMOGLOBIN 12.8 GM/dL (11.7-16.9); MCH 30.9 pg (25.7-33.7); MCHC 33.3 g/dl (32.0-35.9); MEAN CELL VOLUME 92.8 fl (80-96); MEAN PLT VOLUME 9.1 fl (7.5-11.1); PLATELET COUNT 263 10^3/uL (134-434); RBC 4.15 M/mm3 (4.00-5.60); RDW 14.7 % (11.9-15.9); WHITE BLOOD COUNT 5.3 K/mm3 (4.0-10.0)
[2022-09-29 11:18] LABS: ALBUMIN 3.1 g/dl (3.4-5.0); BLOOD UREA NITROGEN 17.2 mg/dL (7-18); CALCIUM 8.8 mg/dL (8.5-10.1)
[2022-09-29 11:22] LABS: BILIRUBIN,TOTAL 0.1 mg/dL (0.2-1)
[2022-09-29 11:23] LABS: TOT PROT 6.2 g/dl (6.4-8.2)
[2022-09-29] MEDS: MELATONIN 5 MG TABLETS PO SCH (22:26)
[2022-09-29] MEDS: THIAMINE HCL 100 MG TABLET (FP) PO SCH (22:26)
[2022-09-30] MEDS: chlordiazePOXIDE HCL 25 MG CAPSULE PO SCH ×4 (05:59→22:25)
[2022-09-30] MEDS: PRENATAL VITAMINS W/ FOLIC ACID TABLET (FP) PO SCH (10:22)
[2022-09-30] MEDS: MELATONIN 5 MG TABLETS PO SCH (22:24)
[2022-09-30] MEDS: THIAMINE HCL 100 MG TABLET (FP) PO SCH (22:24)
[2022-10-01] MEDS ORDERED: chlordiazePOXIDE HCL 10 MG CAPSULE PO PRN
[2022-10-01] MEDS: chlordiazePOXIDE HCL 10 MG CAPSULE PO SCH ×4 (05:50→22:22)
[2022-10-01] MEDS: PRENATAL VITAMINS W/ FOLIC ACID TABLET (FP) PO SCH (10:04)
[2022-10-01 18:19] VITALS: RESP 18
[2022-10-01] MEDS: THIAMINE HCL 100 MG TABLET (FP) PO SCH (22:22)
[2022-10-01] MEDS: MELATONIN 5 MG TABLETS PO SCH (22:24)
[2022-10-02] MEDS ORDERED: chlordiazePOXIDE HCL 10 MG CAPSULE PO SCH (05:00)
[2022-10-02 06:26] VITALS: TEMP 97.7
[2022-10-02] MEDS: PRENATAL VITAMINS W/ FOLIC ACID TABLET (FP) PO SCH (09:40)
[2022-10-02 09:41] VITALS: BP 114/82; PULSE 74
[2022-10-03] MEDS ORDERED: chlordiazePOXIDE HCL 10 MG CAPSULE PO ONE (05:00)
== END 2022-10-02 10:35 | disposition home or self-care (01) | DRG 774 ==
LOC: YASAS 10:06 → Y3N 12:57
PROVIDERS: ADMIT Allergy & Immunology; ATTEND Surgery
PROC: HZ2ZZZZ Detoxification Services for Substance Abuse Treatment (ICD-10-PCS; principal; 2022-09-25)
DX: F10.230 Alcohol dependence with withdrawal, uncomplicated (principal); F14.20 Cocaine dependence, uncomplicated; F12.10 Cannabis abuse, uncomplicated; F17.210 Nicotine dependence, cigarettes, uncomplicated; F41.9 Anxiety disorder, unspecified; G47.00 Insomnia, unspecified; Z86.11 Personal history of tuberculosis; Z56.0 Unemployment, unspecified; Z59.00 Homelessness unspecified
CPT/HCPCS: 36415; 80053; 82962; 85027; 86780; 87635; 87811

== ENCOUNTER 2022-12-16 13:06 | Inpatient (IN) | payer OTHER ==
[2022-12-16] MEDS ORDERED: NICOTINE 7 MG/24 HOURS TOPICAL PATCH TD PRN (13:37)
[2022-12-16] MEDS ORDERED: POLYETHYLENE GLYCOL (HEALTHYLAX) 3350 17 GM PACKET PO PRN (13:37)
[2022-12-16] MEDS ORDERED: MAGNESIUM HYDROX 2400MG/30ML ORAL SUSPENSION 30 ML CUP PO PRN (13:37)
[2022-12-16] MEDS ORDERED: hydrOXYzine PAMOATE 25 MG CAPSULE (FP) PO PRN (13:37)
[2022-12-16] MEDS ORDERED: BENZOCAINE/MENTHOL (CHLORASEPTIC ) LOZENGE MM PRN (13:37)
[2022-12-16] MEDS ORDERED: AMMONIUM LACTATE 12% LOTION 225 GM BOTTLE TP PRN (13:37)
[2022-12-16] MEDS ORDERED: NALOXONE HCL (KLOXXADO) 8 MG SPRAY NS PRN (13:37)
[2022-12-16] MEDS ORDERED: NICOTINE POLACRILEX 4 MG GUM BUC PRN (13:37)
[2022-12-16] MEDS ORDERED: METHOCARBAMOL 500 MG TABLET PO PRN (13:37)
[2022-12-16] MEDS ORDERED: NALOXONE HCL 0.4 MG/ML VIAL IVPUSH PRN (13:37)
[2022-12-16] MEDS ORDERED: BENZONATATE 200 MG CAPSULE PO PRN (13:37)
[2022-12-16] MEDS ORDERED: IBUPROFEN 600 MG TABLET (FP) PO PRN (13:37)
[2022-12-16] MEDS ORDERED: MAG HYDROX/AL HYDROX/SIMETH 30 ML UNIT-DOSE CUP PO PRN (13:37)
[2022-12-16] MEDS ORDERED: guaiFENesin 600 MG TABLET.ER (FP) PO PRN (13:37)
[2022-12-16] MEDS ORDERED: ACETAMINOPHEN 325 MG TABLET (FP) PO PRN (13:37)
[2022-12-16] MEDS ORDERED: LOPERAMIDE HCL 2 MG CAPSULE PO PRN (13:37)
[2022-12-16] MEDS ORDERED: IBUPROFEN 400 MG TABLET (FP) PO PRN (13:37)
[2022-12-16] MEDS ORDERED: COLLOIDAL OATMEAL 1 BAR EACH TP PRN (13:37)
[2022-12-16] MEDS: THIAMINE HCL 100 MG TABLET (FP) PO SCH (21:49)
[2022-12-16] MEDS: MELATONIN 5 MG TABLETS PO SCH (21:49)
[2022-12-17] MEDS: PRENATAL VITAMINS W/ FOLIC ACID TABLET (FP) PO SCH (10:12)
[2022-12-17] MEDS: THIAMINE HCL 100 MG TABLET (FP) PO SCH (21:26)
[2022-12-17] MEDS: MELATONIN 5 MG TABLETS PO SCH (21:26)
[2022-12-18] MEDS: PRENATAL VITAMINS W/ FOLIC ACID TABLET (FP) PO SCH (09:58)
[2022-12-18] MEDS ORDERED: PRENATAL VITAMINS W/ FOLIC ACID TABLET (FP) PO PRN (13:13)
[2022-12-18] MEDS: THIAMINE HCL 100 MG TABLET (FP) PO SCH (21:52)
[2022-12-18] MEDS: MELATONIN 5 MG TABLETS PO SCH (21:52)
[2022-12-19] MEDS: MELATONIN 5 MG TABLETS PO SCH (21:43)
[2022-12-19] MEDS: THIAMINE HCL 100 MG TABLET (FP) PO SCH (21:44)
[2022-12-20] MEDS: MELATONIN 5 MG TABLETS PO SCH (23:03)
[2022-12-20] MEDS: THIAMINE HCL 100 MG TABLET (FP) PO SCH (23:03)
[2022-12-21] MEDS: THIAMINE HCL 100 MG TABLET (FP) PO SCH (21:46)
[2022-12-21] MEDS: MELATONIN 5 MG TABLETS PO SCH (21:46)
[2022-12-22] MEDS: THIAMINE HCL 100 MG TABLET (FP) PO SCH (21:45)
[2022-12-22] MEDS: MELATONIN 5 MG TABLETS PO SCH (21:45)
[2022-12-23] MEDS: MELATONIN 5 MG TABLETS PO SCH (21:34)
[2022-12-23] MEDS: THIAMINE HCL 100 MG TABLET (FP) PO SCH (21:34)
[2022-12-24 07:27] VITALS: RESP 16; TEMP 97.3
[2022-12-24] MEDS: THIAMINE HCL 100 MG TABLET (FP) PO SCH (21:24)
[2022-12-24] MEDS: MELATONIN 5 MG TABLETS PO SCH (21:24)
[2022-12-25 07:04] VITALS: BP 135/51; PULSE 56
== END 2022-12-25 08:55 | disposition home or self-care (01) | DRG 772 ==
LOC: YASAS 13:06 → Y3W 13:07
PROVIDERS: ADMIT Allergy & Immunology; ATTEND Psychiatry & Neurology Pain Medicine
PROC: HZ42ZZZ Group Counseling for Substance Abuse Treatment, Cognitive-Behavioral (ICD-10-PCS; principal; 2022-12-16)
DX: F10.20 Alcohol dependence, uncomplicated (principal); F14.20 Cocaine dependence, uncomplicated; F12.20 Cannabis dependence, uncomplicated; F17.210 Nicotine dependence, cigarettes, uncomplicated; E72.20 Disorder of urea cycle metabolism, unspecified; L85.0 Acquired ichthyosis; Z20.822 Contact with and (suspected) exposure to COVID-19
CPT/HCPCS: 36415; 82140; 86803; 87635

== ENCOUNTER 2023-03-09 13:15 | Inpatient (IN) | payer OTHER ==
[2023-03-09 14:02] VITALS: BMI 20.7
[2023-03-09] MEDS ORDERED: LOPERAMIDE HCL 2 MG CAPSULE PO PRN (15:22)
[2023-03-09] MEDS ORDERED: hydrOXYzine PAMOATE 25 MG CAPSULE (FP) PO PRN (15:22)
[2023-03-09] MEDS ORDERED: DICYCLOMINE HCL 10 MG CAPSULE PO PRN (15:22)
[2023-03-09] MEDS ORDERED: guaiFENesin 600 MG TABLET.ER (FP) PO PRN (15:22)
[2023-03-09] MEDS ORDERED: NICOTINE POLACRILEX 2 MG GUM BUC PRN (15:22)
[2023-03-09] MEDS ORDERED: ACETAMINOPHEN 325 MG TABLET (FP) PO PRN (15:22)
[2023-03-09] MEDS ORDERED: BENZOCAINE/MENTHOL (CHLORASEPTIC ) LOZENGE MM PRN (15:22)
[2023-03-09] MEDS ORDERED: IBUPROFEN 600 MG TABLET (FP) PO PRN (15:22)
[2023-03-09] MEDS ORDERED: BISMUTH SUBSALICYLATE 262 MG/15 ML BTL PO PRN (15:22)
[2023-03-09] MEDS ORDERED: POLYETHYLENE GLYCOL (HEALTHYLAX) 3350 17 GM PACKET PO PRN (15:22)
[2023-03-09] MEDS ORDERED: NALOXONE HCL 0.4 MG/ML VIAL IM PRN (15:22)
[2023-03-09] MEDS ORDERED: MAGNESIUM HYDROX 2400MG/30ML ORAL SUSPENSION 30 ML CUP PO PRN (15:22)
[2023-03-09] MEDS ORDERED: NALOXONE HCL (KLOXXADO) 8 MG SPRAY NS PRN (15:22)
[2023-03-09] MEDS ORDERED: ONDANSETRON *ODT* 4 MG TABLET SL PRN (15:22)
[2023-03-09] MEDS ORDERED: IBUPROFEN 400 MG TABLET (FP) PO PRN (15:22)
[2023-03-09] MEDS ORDERED: METHOCARBAMOL 500 MG TABLET PO PRN (15:22)
[2023-03-09] MEDS ORDERED: MAG HYDROX/AL HYDROX/SIMETH 30 ML UNIT-DOSE CUP PO PRN (15:22)
[2023-03-09] MEDS ORDERED: BENZONATATE 200 MG CAPSULE PO PRN (15:22)
[2023-03-09] MEDS: MELATONIN 5 MG TABLETS PO SCH (22:43)
[2023-03-09] MEDS: THIAMINE HCL 100 MG TABLET (FP) PO SCH (22:43)
[2023-03-10] MEDS ORDERED: chlordiazePOXIDE HCL 25 MG CAPSULE PO PRN (10:00)
[2023-03-10] MEDS: NICOTINE 14 MG/24 HOURS TOPICAL PATCH TD SCH (10:12)
[2023-03-10] MEDS: PRENATAL VITAMINS W/ FOLIC ACID TABLET (FP) PO SCH (10:13)
[2023-03-10] MEDS: chlordiazePOXIDE HCL 25 MG CAPSULE PO SCH ×3 (10:13→22:31)
[2023-03-10 10:46] LABS: CHLORIDE 106 mmol/L (98-107); HEMATOCRIT 39.5 % (35.4-49); HEMOGLOBIN 13.5 GM/dL (11.7-16.9); MCH 31.5 pg (25.7-33.7); MCHC 34.1 g/dl (32.0-35.9); MEAN CELL VOLUME 92.2 fl (80-96); MEAN PLT VOLUME 8.4 fl (7.5-11.1); PLATELET COUNT 293 10^3/uL (134-434); POTASSIUM 3.9 mmol/L (3.5-5.1); RBC 4.28 M/mm3 (4.00-5.60); RDW 13.3 % (11.9-15.9); SODIUM 140 mmol/L (136-145); WHITE BLOOD COUNT 4.6 K/mm3 (4.0-10.0)
[2023-03-10 10:52] LABS: ALBUMIN 3.6 g/dl (3.4-5.0); ANION GAP 3 mmol/L (4-13); BLOOD UREA NITROGEN 16.8 mg/dL (7-18); CALCIUM 8.7 mg/dL (8.5-10.1); CO2 31 mmol/L (21-32); GLUCOSE,RANDOM 115 mg/dL (74-106)
[2023-03-10 10:55] LABS: SGOT/AST 22 U/L (15-37); SGPT/ALT 26 U/L (13-61)
[2023-03-10 10:57] LABS: BILIRUBIN,TOTAL 0.6 mg/dL (0.2-1); TOT PROT 6.7 g/dl (6.4-8.2)
[2023-03-10 10:58] LABS: ALK PHOS 68 U/L (45-117)
[2023-03-10] MEDS: MELATONIN 5 MG TABLETS PO SCH (22:30)
[2023-03-10] MEDS: THIAMINE HCL 100 MG TABLET (FP) PO SCH (22:30)
[2023-03-11] MEDS: chlordiazePOXIDE HCL 25 MG CAPSULE PO SCH ×4 (05:53→22:25)
[2023-03-11] MEDS: PRENATAL VITAMINS W/ FOLIC ACID TABLET (FP) PO SCH (10:27)
[2023-03-11] MEDS: NICOTINE 14 MG/24 HOURS TOPICAL PATCH TD SCH (10:29)
[2023-03-11] MEDS: THIAMINE HCL 100 MG TABLET (FP) PO SCH (22:25)
[2023-03-11] MEDS: MELATONIN 5 MG TABLETS PO SCH (22:26)
[2023-03-12] MEDS: chlordiazePOXIDE HCL 25 MG CAPSULE PO SCH ×2 (05:47→10:19)
[2023-03-12] MEDS: PRENATAL VITAMINS W/ FOLIC ACID TABLET (FP) PO SCH (10:18)
[2023-03-12] MEDS: NICOTINE 14 MG/24 HOURS TOPICAL PATCH TD SCH (10:19)
[2023-03-12 13:03] VITALS: BP 110/64; PULSE 83; RESP 18; TEMP 97.2
[2023-03-13] MEDS ORDERED: chlordiazePOXIDE HCL 10 MG CAPSULE PO PRN
[2023-03-13] MEDS ORDERED: chlordiazePOXIDE HCL 10 MG CAPSULE PO SCH (05:00)
[2023-03-14] MEDS ORDERED: chlordiazePOXIDE HCL 10 MG CAPSULE PO SCH (05:00)
[2023-03-15] MEDS ORDERED: chlordiazePOXIDE HCL 10 MG CAPSULE PO ONE (05:00)
== END 2023-03-12 14:16 | disposition left against medical advice (07) | DRG 770 ==
LOC: YASAS 13:15 → Y3N 16:16
PROVIDERS: ADMIT Allergy & Immunology; ATTEND Surgery
PROC: HZ2ZZZZ Detoxification Services for Substance Abuse Treatment (ICD-10-PCS; principal; 2023-03-09)
DX: F10.230 Alcohol dependence with withdrawal, uncomplicated (principal); F14.20 Cocaine dependence, uncomplicated; F13.20 Sedative, hypnotic or anxiolytic dependence, uncomplicated; F17.210 Nicotine dependence, cigarettes, uncomplicated; R76.11 Nonspecific reaction to tuberculin skin test without active tuberculosis
CPT/HCPCS: 36415; 80053; 80307; 85027; 86780; 87635

== ENCOUNTER 2023-05-07 14:22 | Inpatient (IN) | payer OTHER ==
[2023-05-07 16:05] VITALS: BMI 24.4
[2023-05-07] MEDS ORDERED: MAG HYDROX/AL HYDROX/SIMETH 30 ML UNIT-DOSE CUP PO PRN (18:47)
[2023-05-07] MEDS ORDERED: P-EPHED 60MG/TRIPROLIDI 2.5MG TABLET PO PRN (18:47)
[2023-05-07] MEDS ORDERED: MAGNESIUM HYDROX 2400MG/30ML ORAL SUSPENSION 30 ML CUP PO PRN (18:47)
[2023-05-07] MEDS ORDERED: BENZONATATE 200 MG CAPSULE PO PRN (18:47)
[2023-05-07] MEDS ORDERED: ACETAMINOPHEN 325 MG TABLET (FP) PO PRN (18:47)
[2023-05-07] MEDS ORDERED: COLLOIDAL OATMEAL 1 BAR EACH TP PRN (18:47)
[2023-05-07] MEDS ORDERED: BENZOCAINE/MENTHOL (CHLORASEPTIC ) LOZENGE MM PRN (18:47)
[2023-05-07] MEDS ORDERED: IBUPROFEN 400 MG TABLET (FP) PO PRN (18:47)
[2023-05-07] MEDS ORDERED: guaiFENesin 600 MG TABLET.ER (FP) PO PRN (18:47)
[2023-05-07] MEDS ORDERED: IBUPROFEN 600 MG TABLET (FP) PO PRN (18:47)
[2023-05-07] MEDS ORDERED: NICOTINE POLACRILEX 2 MG LOZENGE BC PRN (18:47)
[2023-05-07] MEDS ORDERED: POLYETHYLENE GLYCOL (HEALTHYLAX) 3350 17 GM PACKET PO PRN (18:47)
[2023-05-07] MEDS ORDERED: hydrOXYzine PAMOATE 25 MG CAPSULE (FP) PO PRN (18:47)
[2023-05-07] MEDS ORDERED: LOPERAMIDE HCL 2 MG CAPSULE PO PRN (18:47)
[2023-05-07] MEDS: MELATONIN 5 MG TABLETS PO SCH (21:42)
[2023-05-07] MEDS: THIAMINE HCL 100 MG TABLET (FP) PO SCH (21:42)
[2023-05-07 22:54] LABS: PH,URINE 6.5 (5.0-8.0); URINE APPEARANCE CLEAR; URINE BILIRUBIN NEGATIVE (NEGATIVE); URINE COLOR YELLOW; URINE GLUCOSE (UA) NEGATIVE (NEGATIVE); URINE KETONE TRACE (NEGATIVE); URINE LEUK ESTERASE NEGATIVE (NEGATIVE); URINE NITRITE NEGATIVE (NEGATIVE); URINE PROTEIN NEGATIVE (NEGATIVE)
[2023-05-08] MEDS: PRENATAL VITAMINS W/ FOLIC ACID TABLET (FP) PO SCH (10:14)
[2023-05-08 10:17] LABS: CHLORIDE 105 mmol/L (98-107); POTASSIUM 4.2 mmol/L (3.5-5.1); SODIUM 141 mmol/L (136-145)
[2023-05-08 10:26] LABS: ALBUMIN 3.4 g/dl (3.4-5.0); ANION GAP 7 mmol/L (4-13); BLOOD UREA NITROGEN 16.7 mg/dL (7-18); CO2 29 mmol/L (21-32); GLUCOSE,RANDOM 90 mg/dL (74-106)
[2023-05-08 10:27] LABS: SGPT/ALT 24 U/L (13-61)
[2023-05-08 10:28] LABS: SGOT/AST 24 U/L (15-37)
[2023-05-08 10:29] LABS: TOT PROT 6.8 g/dl (6.4-8.2)
[2023-05-08 10:30] LABS: ALK PHOS 77 U/L (45-117)
[2023-05-08 10:40] LABS: BILIRUBIN,TOTAL 0.3 mg/dL (0.2-1)
[2023-05-08 10:55] LABS: HEMATOCRIT 39.7 % (35.4-49); HEMOGLOBIN 13.3 GM/dL (11.7-16.9); MCH 30.9 pg (25.7-33.7); MCHC 33.6 g/dl (32.0-35.9); MEAN PLT VOLUME 8.6 fl (7.5-11.1); PLATELET COUNT 270 10^3/uL (134-434); RBC 4.31 M/mm3 (4.00-5.60); RDW 14.5 % (11.9-15.9); WHITE BLOOD COUNT 5.2 K/mm3 (4.0-10.0)
[2023-05-08] MEDS: THIAMINE HCL 100 MG TABLET (FP) PO SCH (21:42)
[2023-05-08] MEDS: MELATONIN 5 MG TABLETS PO SCH (21:42)
[2023-05-09] MEDS: PRENATAL VITAMINS W/ FOLIC ACID TABLET (FP) PO SCH (10:17)
[2023-05-09] MEDS: MELATONIN 5 MG TABLETS PO SCH (23:19)
[2023-05-09] MEDS: THIAMINE HCL 100 MG TABLET (FP) PO SCH (23:19)
[2023-05-10] MEDS: PRENATAL VITAMINS W/ FOLIC ACID TABLET (FP) PO SCH (10:45)
[2023-05-10] MEDS: MELATONIN 5 MG TABLETS PO SCH (21:41)
[2023-05-10] MEDS: THIAMINE HCL 100 MG TABLET (FP) PO SCH (21:41)
[2023-05-11] MEDS: PRENATAL VITAMINS W/ FOLIC ACID TABLET (FP) PO SCH (10:12)
[2023-05-11] MEDS: THIAMINE HCL 100 MG TABLET (FP) PO SCH (21:27)
[2023-05-11] MEDS: MELATONIN 5 MG TABLETS PO SCH (21:27)
[2023-05-12] MEDS: PRENATAL VITAMINS W/ FOLIC ACID TABLET (FP) PO SCH (10:30)
[2023-05-12] MEDS: MELATONIN 5 MG TABLETS PO SCH (21:31)
[2023-05-12] MEDS: THIAMINE HCL 100 MG TABLET (FP) PO SCH (21:31)
[2023-05-13] MEDS: PRENATAL VITAMINS W/ FOLIC ACID TABLET (FP) PO SCH (10:20)
[2023-05-13] MEDS: MELATONIN 5 MG TABLETS PO SCH (21:23)
[2023-05-13] MEDS: THIAMINE HCL 100 MG TABLET (FP) PO SCH (21:23)
[2023-05-14] MEDS: PRENATAL VITAMINS W/ FOLIC ACID TABLET (FP) PO SCH (10:27)
[2023-05-14] MEDS: MELATONIN 5 MG TABLETS PO SCH (21:40)
[2023-05-14] MEDS: THIAMINE HCL 100 MG TABLET (FP) PO SCH (21:40)
[2023-05-15] MEDS: PRENATAL VITAMINS W/ FOLIC ACID TABLET (FP) PO SCH (10:19)
[2023-05-15] MEDS ORDERED: TUBERCULIN PPD 5 TU/0.1ML VIAL ID ONE (14:34)
[2023-05-15] MEDS: MELATONIN 5 MG TABLETS PO SCH (21:44)
[2023-05-15] MEDS: THIAMINE HCL 100 MG TABLET (FP) PO SCH (21:44)
[2023-05-16] MEDS: PRENATAL VITAMINS W/ FOLIC ACID TABLET (FP) PO SCH (10:38)
[2023-05-16] MEDS: MELATONIN 5 MG TABLETS PO SCH (22:21)
[2023-05-16] MEDS: THIAMINE HCL 100 MG TABLET (FP) PO SCH (22:21)
[2023-05-17] MEDS: PRENATAL VITAMINS W/ FOLIC ACID TABLET (FP) PO SCH (10:31)
[2023-05-17] MEDS: THIAMINE HCL 100 MG TABLET (FP) PO SCH (21:19)
[2023-05-17] MEDS: MELATONIN 5 MG TABLETS PO SCH (21:19)
[2023-05-18] MEDS: PRENATAL VITAMINS W/ FOLIC ACID TABLET (FP) PO SCH (09:39)
[2023-05-18] MEDS: THIAMINE HCL 100 MG TABLET (FP) PO SCH (21:59)
[2023-05-18] MEDS: MELATONIN 5 MG TABLETS PO SCH (21:59)
[2023-05-19] MEDS: PRENATAL VITAMINS W/ FOLIC ACID TABLET (FP) PO SCH (10:56)
[2023-05-19] MEDS: THIAMINE HCL 100 MG TABLET (FP) PO SCH (21:53)
[2023-05-19] MEDS: MELATONIN 5 MG TABLETS PO SCH (21:53)
[2023-05-20] MEDS: PRENATAL VITAMINS W/ FOLIC ACID TABLET (FP) PO SCH (10:39)
[2023-05-20] MEDS: MELATONIN 5 MG TABLETS PO SCH (21:42)
[2023-05-20] MEDS: THIAMINE HCL 100 MG TABLET (FP) PO SCH (21:42)
[2023-05-21] MEDS: PRENATAL VITAMINS W/ FOLIC ACID TABLET (FP) PO SCH (10:37)
[2023-05-21] MEDS: MELATONIN 5 MG TABLETS PO SCH (21:47)
[2023-05-21] MEDS: THIAMINE HCL 100 MG TABLET (FP) PO SCH (21:48)
[2023-05-22] MEDS: PRENATAL VITAMINS W/ FOLIC ACID TABLET (FP) PO SCH (09:11)
[2023-05-22] MEDS: MELATONIN 5 MG TABLETS PO SCH (22:04)
[2023-05-22] MEDS: THIAMINE HCL 100 MG TABLET (FP) PO SCH (22:04)
[2023-05-23] MEDS: PRENATAL VITAMINS W/ FOLIC ACID TABLET (FP) PO SCH (10:23)
[2023-05-23] MEDS: THIAMINE HCL 100 MG TABLET (FP) PO SCH (21:50)
[2023-05-23] MEDS: MELATONIN 5 MG TABLETS PO SCH (21:50)
[2023-05-24] MEDS: PRENATAL VITAMINS W/ FOLIC ACID TABLET (FP) PO SCH (10:16)
[2023-05-24] MEDS: MELATONIN 5 MG TABLETS PO SCH (22:01)
[2023-05-24] MEDS: THIAMINE HCL 100 MG TABLET (FP) PO SCH (22:02)
[2023-05-25 07:22] VITALS: BP 109/69; PULSE 66; RESP 17; TEMP 97.1
[2023-05-25] MEDS: PRENATAL VITAMINS W/ FOLIC ACID TABLET (FP) PO SCH (10:27)
== END 2023-05-25 12:42 | disposition home or self-care (01) | DRG 772 ==
LOC: YASAS 14:22 → Y3W 19:07
PROVIDERS: ADMIT Allergy & Immunology; ATTEND Psychiatry & Neurology Pain Medicine
PROC: HZ42ZZZ Group Counseling for Substance Abuse Treatment, Cognitive-Behavioral (ICD-10-PCS; principal; 2023-05-07)
DX: F10.20 Alcohol dependence, uncomplicated (principal); F14.20 Cocaine dependence, uncomplicated; F17.210 Nicotine dependence, cigarettes, uncomplicated; F19.24 Other psychoactive substance dependence with psychoactive substance-induced mood disorder; Z86.11 Personal history of tuberculosis; Z59.00 Homelessness unspecified
CPT/HCPCS: 36415; 80053; 80307; 81003; 85027; 86780; 87635

== ENCOUNTER 2023-06-15 15:15 | Inpatient (IN) | payer OTHER ==
[2023-06-15 16:57] VITALS: BMI 22.7
[2023-06-15] MEDS ORDERED: METHOCARBAMOL 500 MG TABLET PO PRN (17:50)
[2023-06-15] MEDS ORDERED: LOPERAMIDE HCL 2 MG CAPSULE PO PRN (17:50)
[2023-06-15] MEDS ORDERED: guaiFENesin 600 MG TABLET.ER (FP) PO PRN (17:50)
[2023-06-15] MEDS ORDERED: ONDANSETRON *ODT* 4 MG TABLET SL PRN (17:50)
[2023-06-15] MEDS ORDERED: POLYETHYLENE GLYCOL (HEALTHYLAX) 3350 17 GM PACKET PO PRN (17:50)
[2023-06-15] MEDS ORDERED: DICYCLOMINE HCL 10 MG CAPSULE PO PRN (17:50)
[2023-06-15] MEDS ORDERED: BISMUTH SUBSALICYLATE 524 MG/30 ML PO PRN (17:50)
[2023-06-15] MEDS ORDERED: ACETAMINOPHEN 325 MG TABLET (FP) PO PRN (17:50)
[2023-06-15] MEDS ORDERED: BENZOCAINE/MENTHOL (CHLORASEPTIC ) LOZENGE MM PRN (17:50)
[2023-06-15] MEDS ORDERED: IBUPROFEN 400 MG TABLET (FP) PO PRN (17:50)
[2023-06-15] MEDS ORDERED: MAGNESIUM HYDROX 2400MG/30ML ORAL SUSPENSION 30 ML CUP PO PRN (17:50)
[2023-06-15] MEDS ORDERED: NALOXONE HCL 0.4 MG/ML VIAL IM PRN (17:50)
[2023-06-15] MEDS ORDERED: NALOXONE HCL (KLOXXADO) 8 MG SPRAY NS PRN (17:50)
[2023-06-15] MEDS ORDERED: BENZONATATE 200 MG CAPSULE PO PRN (17:50)
[2023-06-15] MEDS ORDERED: hydrOXYzine PAMOATE 25 MG CAPSULE (FP) PO PRN (17:50)
[2023-06-15] MEDS ORDERED: MAG HYDROX/AL HYDROX/SIMETH 30 ML UNIT-DOSE CUP PO PRN (17:50)
[2023-06-15] MEDS ORDERED: IBUPROFEN 600 MG TABLET (FP) PO PRN (17:50)
[2023-06-15] MEDS: MELATONIN 5 MG TABLETS PO SCH (23:30)
[2023-06-15] MEDS: THIAMINE HCL 100 MG TABLET (FP) PO SCH (23:30)
[2023-06-16] MEDS: PRENATAL VITAMINS W/ FOLIC ACID TABLET (FP) PO SCH (10:23)
[2023-06-16 12:18] LABS: HEMATOCRIT 38.3 % (35.4-49); HEMOGLOBIN 12.7 GM/dL (11.7-16.9); MCH 31.5 pg (25.7-33.7); MCHC 33.2 g/dl (32.0-35.9); MEAN CELL VOLUME 94.9 fl (80-96); MEAN PLT VOLUME 8.2 fl (7.5-11.1); PLATELET COUNT 311 10^3/uL (134-434); RBC 4.03 M/mm3 (4.00-5.60); RDW 14.9 % (11.9-15.9); WHITE BLOOD COUNT 5.5 K/mm3 (4.0-10.0)
[2023-06-16 13:00] LABS: CHLORIDE 109 mmol/L (98-107); POTASSIUM 4.1 mmol/L (3.5-5.1); SODIUM 143 mmol/L (136-145)
[2023-06-16 13:05] LABS: BLOOD UREA NITROGEN 22.7 mg/dL (7-18); CALCIUM 8.7 mg/dL (8.5-10.1)
[2023-06-16 13:06] LABS: ALBUMIN 3.1 g/dl (3.4-5.0); ANION GAP 5 mmol/L (4-13); CO2 29 mmol/L (21-32); GLUCOSE,RANDOM 113 mg/dL (74-106)
[2023-06-16 13:07] LABS: SGPT/ALT 15 U/L (13-61)
[2023-06-16 13:08] LABS: SGOT/AST 15 U/L (15-37)
[2023-06-16 13:09] LABS: TOT PROT 6.3 g/dl (6.4-8.2)
[2023-06-16 13:11] LABS: ALK PHOS 68 U/L (45-117)
[2023-06-16 13:15] LABS: BILIRUBIN,TOTAL 0.3 mg/dL (0.2-1)
[2023-06-17 06:15] VITALS: RESP 16
[2023-06-17 08:54] VITALS: BP 125/72; PULSE 70; TEMP 97.7
== END 2023-06-17 10:45 | disposition home or self-care (01) | DRG 774 ==
LOC: YASAS 15:15 → Y6N 18:31
PROVIDERS: ADMIT Surgery; ATTEND Allergy & Immunology
PROC: HZ2ZZZZ Detoxification Services for Substance Abuse Treatment (ICD-10-PCS; principal; 2023-06-15)
DX: F10.20 Alcohol dependence, uncomplicated (principal); F14.20 Cocaine dependence, uncomplicated; F12.20 Cannabis dependence, uncomplicated; F17.210 Nicotine dependence, cigarettes, uncomplicated; F19.24 Other psychoactive substance dependence with psychoactive substance-induced mood disorder; Z86.11 Personal history of tuberculosis; Z59.01 Sheltered homelessness
CPT/HCPCS: 36415; 80053; 80305; 80307; 85027; 86780; 87635; 93005; 93010

== ENCOUNTER 2023-08-29 23:05 | Inpatient (IN) | payer OTHER ==
[2023-08-30 01:28] VITALS: BMI 22.1
[2023-08-30] MEDS ORDERED: BENZONATATE 200 MG CAPSULE PO PRN (05:45)
[2023-08-30] MEDS ORDERED: ONDANSETRON *ODT* 4 MG TABLET SL PRN (05:45)
[2023-08-30] MEDS ORDERED: hydrOXYzine PAMOATE 25 MG CAPSULE (FP) PO PRN (05:45)
[2023-08-30] MEDS ORDERED: guaiFENesin 600 MG TABLET.ER (FP) PO PRN (05:45)
[2023-08-30] MEDS ORDERED: IBUPROFEN 600 MG TABLET (FP) PO PRN (05:45)
[2023-08-30] MEDS ORDERED: NALOXONE HCL 0.4 MG/ML VIAL IM PRN (05:45)
[2023-08-30] MEDS ORDERED: POLYETHYLENE GLYCOL (HEALTHYLAX) 3350 17 GM PACKET PO PRN (05:45)
[2023-08-30] MEDS ORDERED: METHOCARBAMOL 500 MG TABLET PO PRN (05:45)
[2023-08-30] MEDS ORDERED: DICYCLOMINE HCL 10 MG CAPSULE PO PRN (05:45)
[2023-08-30] MEDS ORDERED: MAGNESIUM HYDROX 2400MG/30ML ORAL SUSPENSION 30 ML CUP PO PRN (05:45)
[2023-08-30] MEDS ORDERED: BISMUTH SUBSALICYLATE 524 MG/30 ML PO PRN (05:45)
[2023-08-30] MEDS ORDERED: LOPERAMIDE HCL 2 MG CAPSULE PO PRN (05:45)
[2023-08-30] MEDS ORDERED: BENZOCAINE/MENTHOL (CHLORASEPTIC ) LOZENGE MM PRN (05:45)
[2023-08-30] MEDS ORDERED: NALOXONE HCL (KLOXXADO) 8 MG SPRAY NS PRN (05:45)
[2023-08-30] MEDS ORDERED: MAG HYDROX/AL HYDROX/SIMETH 30 ML UNIT-DOSE CUP PO PRN (05:45)
[2023-08-30] MEDS ORDERED: ACETAMINOPHEN 325 MG TABLET (FP) PO PRN (05:45)
[2023-08-30] MEDS ORDERED: IBUPROFEN 400 MG TABLET (FP) PO PRN (05:45)
[2023-08-30] MEDS: PRENATAL VITAMINS W/ FOLIC ACID TABLET (FP) PO SCH (10:38)
[2023-08-30] MEDS: THIAMINE 100 MG TABLET PO SCH (22:30)
[2023-08-30] MEDS: MELATONIN 5 MG TABLETS PO SCH (22:31)
[2023-08-31 09:29] LABS: HEMOGLOBIN 12.5 GM/dL (11.7-16.9); MCH 31.5 pg (25.7-33.7); MCHC 33.9 g/dl (32.0-35.9); MEAN CELL VOLUME 92.8 fl (80-96); MEAN PLT VOLUME 8.4 fl (7.5-11.1); PLATELET COUNT 312 10^3/uL (134-434); RBC 3.98 M/mm3 (4.00-5.60); RDW 13.8 % (11.9-15.9)
[2023-08-31 18:09] VITALS: BP 115/68; PULSE 70; RESP 16; TEMP 97.7
== END 2023-08-31 20:00 | disposition other institution (70) | DRG 774 ==
LOC: YASAS 23:05 → Y6N 08-30 06:01
PROVIDERS: ADMIT Allergy & Immunology; ATTEND Allergy & Immunology
PROC: HZ2ZZZZ Detoxification Services for Substance Abuse Treatment (ICD-10-PCS; principal; 2023-08-30)
DX: F10.20 Alcohol dependence, uncomplicated (principal); F14.20 Cocaine dependence, uncomplicated; F17.210 Nicotine dependence, cigarettes, uncomplicated; R76.11 Nonspecific reaction to tuberculin skin test without active tuberculosis; Z59.00 Homelessness unspecified
CPT/HCPCS: 36415; 71046-TC-FY; 80305; 85027; 86780; 87811; 93005; 93010

== ENCOUNTER 2023-08-31 21:06 | Inpatient (IN) | payer OTHER ==
[~2023-08-31 21:06] MED LIST changes: +BENZOCAINE/MENTHOL (CHLORASEPTIC ) LOZENGE MM PRN; +BENZONATATE 200 MG CAPSULE PO PRN; +IBUPROFEN 600 MG TABLET (FP) PO PRN; -MAGNESIUM CITRATE 300 ML BOTTLE PO PRN; -NICOTINE 10 MG CARTRIDGE (INHALER) IH PRN; +NICOTINE 7 MG/24 HOURS TOPICAL PATCH TD PRN; +NICOTINE POLACRILEX 2 MG GUM BUC PRN; -P-EPHED 60MG/TRIPROLIDI 2.5MG TABLET PO PRN; +POLYETHYLENE GLYCOL (HEALTHYLAX) 3350 17 GM PACKET PO PRN; -guaiFENesin 200 MG/10 ML 10 ML UNIT-DOSE CUPS PO PRN; +guaiFENesin 600 MG TABLET.ER (FP) PO PRN
[2023-08-31] MEDS: MELATONIN 5 MG TABLETS PO SCH (22:19)
[2023-08-31] MEDS: THIAMINE 100 MG TABLET PO SCH (22:19)
[2023-09-01] MEDS: PRENATAL VITAMINS W/ FOLIC ACID TABLET (FP) PO SCH (09:53)
[2023-09-01] MEDS ORDERED: PRENATAL VITAMINS W/ FOLIC ACID TABLET (FP) PO PRN (14:40)
[2023-09-03] MEDS ORDERED: MELATONIN 5 MG TABLETS PO PRN (08:05)
[2023-09-03] MEDS: MULTIVITAMINS (DAILY MVI) TABLET (FP) PO SCH (10:06)
[2023-09-11 07:11] VITALS: BP 97/56; PULSE 72; RESP 18; TEMP 96.7
== END 2023-09-11 12:35 | disposition home or self-care (01) | DRG 772 ==
LOC: YASAS 21:06 → Y3E 22:02
PROVIDERS: ADMIT Allergy & Immunology; ATTEND Psychiatry & Neurology Pain Medicine
PROC: HZ42ZZZ Group Counseling for Substance Abuse Treatment, Cognitive-Behavioral (ICD-10-PCS; principal; 2023-08-31)
DX: F10.20 Alcohol dependence, uncomplicated (principal); F14.20 Cocaine dependence, uncomplicated; F17.210 Nicotine dependence, cigarettes, uncomplicated; Z86.11 Personal history of tuberculosis; Z56.0 Unemployment, unspecified; Z59.00 Homelessness unspecified

== ENCOUNTER 2023-12-08 16:10 | Inpatient (IN) | payer OTHER ==
[2023-12-08 16:54] VITALS: BMI 20.7
[2023-12-08] MEDS ORDERED: DICYCLOMINE HCL 10 MG CAPSULE PO PRN (18:27)
[2023-12-08] MEDS ORDERED: MAG HYDROX/AL HYDROX/SIMETH 30 ML UNIT-DOSE CUP PO PRN (18:27)
[2023-12-08] MEDS ORDERED: NALOXONE (NARCAN) HCL 4 MG/0.1 ML SPRAY NS PRN (18:27)
[2023-12-08] MEDS ORDERED: ONDANSETRON *ODT* 4 MG TABLET SL PRN (18:27)
[2023-12-08] MEDS ORDERED: IBUPROFEN 600 MG TABLET (FP) PO PRN (18:27)
[2023-12-08] MEDS ORDERED: hydrOXYzine PAMOATE 25 MG CAPSULE (FP) PO PRN (18:27)
[2023-12-08] MEDS ORDERED: guaiFENesin 600 MG TABLET.ER (FP) PO PRN (18:27)
[2023-12-08] MEDS ORDERED: ACETAMINOPHEN 325 MG TABLET (FP) PO PRN (18:27)
[2023-12-08] MEDS ORDERED: LOPERAMIDE HCL 2 MG CAPSULE PO PRN (18:27)
[2023-12-08] MEDS ORDERED: POLYETHYLENE GLYCOL (HEALTHYLAX) 3350 17 GM PACKET PO PRN (18:27)
[2023-12-08] MEDS ORDERED: BENZOCAINE/MENTHOL (CHLORASEPTIC ) LOZENGE MM PRN (18:27)
[2023-12-08] MEDS ORDERED: BISMUTH SUBSALICYLATE 524 MG/30 ML PO PRN (18:27)
[2023-12-08] MEDS ORDERED: IBUPROFEN 400 MG TABLET (FP) PO PRN (18:27)
[2023-12-08] MEDS ORDERED: METHOCARBAMOL 500 MG TABLET PO PRN (18:27)
[2023-12-08] MEDS ORDERED: NICOTINE POLACRILEX 2 MG GUM BUC PRN (18:27)
[2023-12-08] MEDS ORDERED: NALOXONE HCL 0.4 MG/ML VIAL IM PRN (18:27)
[2023-12-08] MEDS ORDERED: MAGNESIUM HYDROX 2400MG/30ML ORAL SUSPENSION 30 ML CUP PO PRN (18:27)
[2023-12-08] MEDS ORDERED: BENZONATATE 200 MG CAPSULE PO PRN (18:27)
[2023-12-08] MEDS: MELATONIN 5 MG TABLETS PO SCH (22:34)
[2023-12-08] MEDS: THIAMINE 100 MG TABLET PO SCH (22:34)
[2023-12-09 08:51] LABS: HEMATOCRIT 36.7 % (35.4-49); HEMOGLOBIN 12.4 GM/dL (11.7-16.9); MCH 30.7 pg (25.7-33.7); MCHC 33.8 g/dl (32.0-35.9); MEAN CELL VOLUME 90.6 fl (80-96); MEAN PLT VOLUME 8.4 fl (7.5-11.1); PLATELET COUNT 331 10^3/uL (134-434); RBC 4.05 M/mm3 (4.00-5.60); RDW 14.6 % (11.9-15.9); WHITE BLOOD COUNT 5.7 K/mm3 (4.0-10.0)
[2023-12-09 08:52] LABS: CHLORIDE 110 mmol/L (98-107); SODIUM 143 mmol/L (136-145)
[2023-12-09 08:58] LABS: ALBUMIN 2.9 g/dl (3.4-5.0); ANION GAP 4 mmol/L (4-13); BLOOD UREA NITROGEN 16.6 mg/dL (7-18); CALCIUM 8.7 mg/dL (8.5-10.1); CO2 30 mmol/L (21-32); GLUCOSE,RANDOM 115 mg/dL (74-106)
[2023-12-09 09:00] LABS: SGPT/ALT 14 U/L (13-61)
[2023-12-09 09:01] LABS: CREATININE 0.8 mg/dL (0.55-1.3); SGOT/AST 19 U/L (15-37)
[2023-12-09 09:02] LABS: BILIRUBIN,TOTAL 0.2 mg/dL (0.2-1); TOT PROT 6.4 g/dl (6.4-8.2)
[2023-12-09 09:03] LABS: ALK PHOS 144 U/L (45-117)
[2023-12-09] MEDS: PRENATAL VITAMINS W/ FOLIC ACID TABLET (FP) PO SCH (09:50)
[2023-12-09] MEDS: NICOTINE 14 MG/24 HOURS TOPICAL PATCH TD SCH (09:50)
[2023-12-09] MEDS ORDERED: chlordiazePOXIDE HCL 25 MG CAPSULE PO PRN (10:03)
[2023-12-09] MEDS: chlordiazePOXIDE HCL 25 MG CAPSULE PO SCH (10:20)
[2023-12-10] MEDS: chlordiazePOXIDE HCL 25 MG CAPSULE PO SCH (05:42)
[2023-12-10] MEDS: NALTREXONE HCL 50 MG TABLET PO SCH (14:01)
[2023-12-11] MEDS: chlordiazePOXIDE HCL 10 MG CAPSULE PO SCH (05:53)
[2023-12-12] MEDS: chlordiazePOXIDE HCL 10 MG CAPSULE PO SCH (05:54)
[2023-12-13] MEDS: chlordiazePOXIDE HCL 10 MG CAPSULE PO ONE (07:04)
[2023-12-13 11:11] VITALS: BP 115/61; PULSE 83; RESP 16; TEMP 98.7
== END 2023-12-13 11:48 | disposition home or self-care (01) | DRG 774 ==
LOC: YASAS 16:10 → Y6N 19:01
PROVIDERS: ADMIT Allergy & Immunology; ATTEND Surgery
PROC: HZ2ZZZZ Detoxification Services for Substance Abuse Treatment (ICD-10-PCS; principal; 2023-12-08)
DX: F10.230 Alcohol dependence with withdrawal, uncomplicated (principal); F14.20 Cocaine dependence, uncomplicated; F12.20 Cannabis dependence, uncomplicated; F17.210 Nicotine dependence, cigarettes, uncomplicated; Z86.11 Personal history of tuberculosis; Z56.0 Unemployment, unspecified; Z59.00 Homelessness unspecified
CPT/HCPCS: 36415; 80053; 80305; 80307; 85027; 86780; 93005; 93010

== ENCOUNTER 2024-03-15 16:50 | Inpatient (IN) | payer OTHER ==
[2024-03-15 17:41] VITALS: BMI 23.1
[2024-03-15] MEDS ORDERED: hydrOXYzine PAMOATE 25 MG CAPSULE (FP) PO PRN (18:49)
[2024-03-15] MEDS ORDERED: ACETAMINOPHEN 325 MG TABLET (FP) PO PRN (18:49)
[2024-03-15] MEDS ORDERED: MAG HYDROX/AL HYDROX/SIMETH 30 ML UNIT-DOSE CUP PO PRN (18:49)
[2024-03-15] MEDS ORDERED: NICOTINE POLACRILEX 2 MG GUM BUC PRN (18:49)
[2024-03-15] MEDS ORDERED: LOPERAMIDE HCL 2 MG CAPSULE PO PRN (18:49)
[2024-03-15] MEDS ORDERED: guaiFENesin 600 MG TABLET.ER (FP) PO PRN (18:49)
[2024-03-15] MEDS ORDERED: POLYETHYLENE GLYCOL (HEALTHYLAX) 3350 17 GM PACKET PO PRN (18:49)
[2024-03-15] MEDS ORDERED: NALOXONE (NARCAN) HCL 4 MG/0.1 ML SPRAY NS PRN (18:49)
[2024-03-15] MEDS ORDERED: BENZOCAINE/MENTHOL (CHLORASEPTIC ) LOZENGE MM PRN (18:49)
[2024-03-15] MEDS ORDERED: MAGNESIUM HYDROX 2400MG/30ML ORAL SUSPENSION 30 ML CUP PO PRN (18:49)
[2024-03-15] MEDS ORDERED: IBUPROFEN 600 MG TABLET (FP) PO PRN (18:49)
[2024-03-15] MEDS ORDERED: DICYCLOMINE HCL 10 MG CAPSULE PO PRN (18:49)
[2024-03-15] MEDS ORDERED: IBUPROFEN 400 MG TABLET (FP) PO PRN (18:49)
[2024-03-15] MEDS ORDERED: BENZONATATE 200 MG CAPSULE PO PRN (18:49)
[2024-03-15] MEDS ORDERED: BISMUTH SUBSALICYLATE 524 MG/30 ML PO PRN (18:49)
[2024-03-15] MEDS ORDERED: METHOCARBAMOL 500 MG TABLET PO PRN (18:49)
[2024-03-15] MEDS ORDERED: ONDANSETRON *ODT* 4 MG TABLET SL PRN (18:49)
[2024-03-15] MEDS: MELATONIN 5 MG TABLETS PO SCH (23:07)
[2024-03-15] MEDS: THIAMINE 100 MG TABLET PO SCH (23:07)
[2024-03-16] MEDS ORDERED: chlordiazePOXIDE HCL 25 MG CAPSULE PO PRN (08:34)
[2024-03-16] MEDS ORDERED: PRENATAL VITAMINS W/ FOLIC ACID TABLET (FP) PO SCH (10:00)
[2024-03-16] MEDS: chlordiazePOXIDE HCL 25 MG CAPSULE PO SCH (10:12)
[2024-03-16] MEDS: NALTREXONE HCL 50 MG TABLET PO SCH (10:14)
[2024-03-16] MEDS: MULTIVITAMINS (DAILY MVI) TABLET (FP) PO SCH (10:15)
[2024-03-16 11:56] LABS: HEMATOCRIT 36.9 % (35.4-49); HEMOGLOBIN 12.6 GM/dL (11.7-16.9); MCHC 34.1 g/dl (32.0-35.9); MEAN CELL VOLUME 90.7 fl (80-96); MEAN PLT VOLUME 8.3 fl (7.5-11.1); PLATELET COUNT 309 10^3/uL (134-434); RBC 4.07 M/mm3 (4.00-5.60); WHITE BLOOD COUNT 5.5 K/mm3 (4.0-10.0)
[2024-03-16 12:30] LABS: CHLORIDE 107 mmol/L (98-107); POTASSIUM 3.9 mmol/L (3.5-5.1); SODIUM 142 mmol/L (136-145)
[2024-03-16 12:33] LABS: CALCIUM 8.8 mg/dL (8.5-10.1)
[2024-03-16 12:34] LABS: ALBUMIN 3.2 g/dl (3.4-5.0); ANION GAP 8 mmol/L (4-13); BLOOD UREA NITROGEN 20.3 mg/dL (7-18); CO2 28 mmol/L (21-32); GLUCOSE,RANDOM 104 mg/dL (74-106)
[2024-03-16 12:37] LABS: CREATININE 1.1 mg/dL (0.55-1.3); SGOT/AST 18 U/L (15-37); SGPT/ALT 22 U/L (13-61)
[2024-03-16 12:39] LABS: BILIRUBIN,TOTAL 0.3 mg/dL (0.2-1); TOT PROT 6.6 g/dl (6.4-8.2)
[2024-03-16 12:40] LABS: ALK PHOS 89 U/L (45-117)
[2024-03-18] MEDS: chlordiazePOXIDE HCL 25 MG CAPSULE PO SCH (06:00)
[2024-03-19] MEDS ORDERED: chlordiazePOXIDE HCL 10 MG CAPSULE PO PRN
[2024-03-19] MEDS: chlordiazePOXIDE HCL 10 MG CAPSULE PO SCH (06:00)
[2024-03-20] MEDS: chlordiazePOXIDE HCL 10 MG CAPSULE PO SCH (05:58)
[2024-03-20] MEDS ORDERED: NALOXONE (NYS OPIOID OVERDOSE PROGRAM) 4 MG/0.1 ML SPRAY NS PRN (10:45)
[2024-03-21] MEDS: chlordiazePOXIDE HCL 10 MG CAPSULE PO ONE (05:50)
[2024-03-21] MEDS ORDERED: NALOXONE (NYS OPIOID OVERDOSE PROGRAM) 4 MG/0.1 ML SPRAY NS PRN (08:00)
[2024-03-21 08:53] VITALS: BP 105/58; PULSE 81; RESP 18; TEMP 97.3
== END 2024-03-21 11:14 | disposition other institution (70) | DRG 774 ==
LOC: YASAS 16:50 → Y3N 19:26
PROVIDERS: ADMIT Allergy & Immunology; ATTEND Surgery
PROC: HZ2ZZZZ Detoxification Services for Substance Abuse Treatment (ICD-10-PCS; principal; 2024-03-15)
DX: F10.230 Alcohol dependence with withdrawal, uncomplicated (principal); F14.20 Cocaine dependence, uncomplicated; F17.210 Nicotine dependence, cigarettes, uncomplicated; Z86.11 Personal history of tuberculosis; Z56.0 Unemployment, unspecified; Z59.00 Homelessness unspecified
CPT/HCPCS: 36415; 80053; 80305; 80307; 85027; 86780

== ENCOUNTER 2024-04-18 20:00 | Inpatient (IN) | payer OTHER ==
[2024-04-18 22:09] VITALS: BMI 24.6
[2024-04-18] MEDS ORDERED: LOPERAMIDE HCL 2 MG CAPSULE PO PRN (23:39)
[2024-04-18] MEDS ORDERED: IBUPROFEN 600 MG TABLET (FP) PO PRN (23:39)
[2024-04-18] MEDS ORDERED: ACETAMINOPHEN 325 MG TABLET (FP) PO PRN (23:39)
[2024-04-18] MEDS ORDERED: IBUPROFEN 400 MG TABLET (FP) PO PRN (23:39)
[2024-04-18] MEDS ORDERED: guaiFENesin 600 MG TABLET.ER (FP) PO PRN (23:39)
[2024-04-18] MEDS ORDERED: BENZOCAINE/MENTHOL (CHLORASEPTIC ) LOZENGE MM PRN (23:39)
[2024-04-18] MEDS ORDERED: NICOTINE POLACRILEX 2 MG LOZENGE BC PRN (23:39)
[2024-04-18] MEDS ORDERED: MAGNESIUM HYDROX 2400MG/30ML ORAL SUSPENSION 30 ML CUP PO PRN (23:39)
[2024-04-18] MEDS ORDERED: MAG HYDROX/AL HYDROX/SIMETH 30 ML UNIT-DOSE CUP PO PRN (23:39)
[2024-04-18] MEDS ORDERED: hydrOXYzine PAMOATE 25 MG CAPSULE (FP) PO PRN (23:39)
[2024-04-18] MEDS ORDERED: BENZONATATE 200 MG CAPSULE PO PRN (23:39)
[2024-04-18] MEDS ORDERED: POLYETHYLENE GLYCOL (HEALTHYLAX) 3350 17 GM PACKET PO PRN (23:39)
[2024-04-18] MEDS ORDERED: NICOTINE POLACRILEX 2 MG GUM BUC PRN (23:39)
[2024-04-19] MEDS ORDERED: MELATONIN 5 MG TABLETS ONE (00:18)
[2024-04-19] MEDS: MELATONIN 5 MG TABLETS PO SCH (00:27)
[2024-04-19] MEDS: PRENATAL VITAMINS W/ FOLIC ACID TABLET (FP) PO SCH (11:00)
[2024-04-19 11:05] LABS: HEMATOCRIT 37.1 % (35.4-49); MCH 30.2 pg (25.7-33.7); MCHC 32.4 g/dl (32.0-35.9); MEAN PLT VOLUME 8.3 fl (7.5-11.1); PLATELET COUNT 238 10^3/uL (134-434); RBC 3.98 M/mm3 (4.00-5.60); RDW 13.8 % (11.9-15.9); WHITE BLOOD COUNT 4.6 K/mm3 (4.0-10.0)
[2024-04-19 11:07] LABS: CHLORIDE 102 mmol/L (98-107); POTASSIUM 3.9 mmol/L (3.5-5.1); SODIUM 140 mmol/L (136-145)
[2024-04-19 11:12] LABS: ALBUMIN 3.1 g/dl (3.4-5.0); ANION GAP 9 mmol/L (4-13); BLOOD UREA NITROGEN 20.8 mg/dL (7-18); CO2 29 mmol/L (21-32); GLUCOSE,RANDOM 118 mg/dL (74-106)
[2024-04-19 11:15] LABS: CREATININE 1.2 mg/dL (0.55-1.3); SGOT/AST 31 U/L (15-37); SGPT/ALT 28 U/L (13-61)
[2024-04-19 11:16] LABS: BILIRUBIN,TOTAL 0.2 mg/dL (0.2-1)
[2024-04-19 11:17] LABS: TOT PROT 6.3 g/dl (6.4-8.2)
[2024-04-19 11:18] LABS: ALK PHOS 78 U/L (45-117)
[2024-04-19] MEDS ORDERED: PRENATAL VITAMINS W/ FOLIC ACID TABLET (FP) PO PRN (12:40)
[2024-04-19] MEDS: THIAMINE 100 MG TABLET PO SCH (21:20)
[2024-05-09] MEDS: MELATONIN 5 MG TABLETS PO PRN (21:37)
[2024-05-12 06:22] VITALS: BP 121/72; PULSE 70; RESP 20; TEMP 97.6
[2024-05-12] MEDS: NALOXONE (NYS OPIOID OVERDOSE PROGRAM) 4 MG/0.1 ML SPRAY NS SCH (07:14)
== END 2024-05-12 07:30 | disposition home or self-care (01) | DRG 772 ==
LOC: YASAS 20:00 → Y3E 04-19 01:22
PROVIDERS: ADMIT Allergy & Immunology; ATTEND Psychiatry & Neurology Pain Medicine
PROC: HZ42ZZZ Group Counseling for Substance Abuse Treatment, Cognitive-Behavioral (ICD-10-PCS; principal; 2024-04-19)
DX: F10.20 Alcohol dependence, uncomplicated (principal); F14.20 Cocaine dependence, uncomplicated; Z72.0 Tobacco use; Z86.11 Personal history of tuberculosis; Z56.0 Unemployment, unspecified; Z59.00 Homelessness unspecified
CPT/HCPCS: 36415; 80053; 80307; 85027; 86780

== ENCOUNTER 2024-12-01 11:35 | Inpatient (IN) | payer OTHER ==
[2024-12-01] MEDS ORDERED: hydrOXYzine PAMOATE 25 MG CAPSULE (FP) PO PRN (15:32)
[2024-12-01] MEDS ORDERED: BENZONATATE 200 MG CAPSULE PO PRN (15:32)
[2024-12-01] MEDS ORDERED: MAG HYDROX/AL HYDROX/SIMETH 30 ML UNIT-DOSE CUP PO PRN (15:32)
[2024-12-01] MEDS ORDERED: BENZOCAINE/MENTHOL (CHLORASEPTIC ) LOZENGE MM PRN (15:32)
[2024-12-01] MEDS ORDERED: ACETAMINOPHEN 325 MG TABLET (FP) PO PRN (15:32)
[2024-12-01] MEDS ORDERED: guaiFENesin 600 MG TABLET.ER (FP) PO PRN (15:32)
[2024-12-01] MEDS ORDERED: LOPERAMIDE HCL 2 MG CAPSULE PO PRN (15:32)
[2024-12-01] MEDS ORDERED: NALOXONE HCL 0.4 MG/ML VIAL IVPUSH PRN (15:32)
[2024-12-01] MEDS ORDERED: METHOCARBAMOL 500 MG TABLET PO PRN (15:32)
[2024-12-01] MEDS ORDERED: NALOXONE (NARCAN) HCL 4 MG/0.1 ML SPRAY NS PRN (15:32)
[2024-12-01] MEDS ORDERED: IBUPROFEN 400 MG TABLET (FP) PO PRN (15:32)
[2024-12-01] MEDS ORDERED: IBUPROFEN 600 MG TABLET (FP) PO PRN (15:32)
[2024-12-01] MEDS ORDERED: MAGNESIUM HYDROX 2400MG/30ML ORAL SUSPENSION 30 ML CUP PO PRN (15:32)
[2024-12-01] MEDS ORDERED: POLYETHYLENE GLYCOL (HEALTHYLAX) 3350 17 GM PACKET PO PRN (15:32)
[2024-12-01] MEDS: THIAMINE 100 MG TABLET PO SCH (21:25)
[2024-12-01] MEDS: MELATONIN 5 MG TABLETS PO SCH (21:25)
[2024-12-02] MEDS: PRENATAL VITAMINS W/ FOLIC ACID TABLET (FP) PO SCH (09:59)
[2024-12-20 11:27] LABS: MCHC 33.0 g/dl (32.3-36.5); MEAN CELL VOLUME 89.7 fl (79.0-92.2); MEAN PLT VOLUME 10.4 fl (9.4-12.4); RDW 13.6 % (12.1-15.9)
[2024-12-20 12:24] LABS: GLUCOSE,RANDOM 96.0 mg/dL (74-106); TOT PROT 7.4 g/dl (6.4-8.2)
[2024-12-20 12:26] LABS: CO2 30.0 mmol/L (21-32)
[2024-12-20 12:27] LABS: ALK PHOS 61.0 U/L (40-150)
[2024-12-20 12:30] LABS: CREATININE 0.97 mg/dL (0.55-1.3); SGOT/AST 22.0 U/L (5-34); SGPT/ALT 17.0 U/L (0-55)
[2024-12-21] MEDS: LACTULOSE 20 GM/30 ML UDC (FOR ORAL USE ONLY) PO SCH (14:19)
[2024-12-26 05:28] VITALS: RESP 16
[2024-12-27 05:29] VITALS: PULSE 66; TEMP 97.1
[2024-12-28 05:17] VITALS: BP 120/82
== END 2024-12-28 08:04 | disposition home or self-care (01) | DRG 772 ==
LOC: YASAS 11:35 → Y3E 11:37 → Y3W 15:15
PROVIDERS: ADMIT Psychiatry & Neurology Pain Medicine; ATTEND Psychiatry & Neurology Pain Medicine
PROC: HZ42ZZZ Group Counseling for Substance Abuse Treatment, Cognitive-Behavioral (ICD-10-PCS; principal; 2024-12-01)
DX: F14.20 Cocaine dependence, uncomplicated (principal); F10.20 Alcohol dependence, uncomplicated; E72.20 Disorder of urea cycle metabolism, unspecified; Z87.891 Personal history of nicotine dependence; Z59.00 Homelessness unspecified
CPT/HCPCS: 36415; 80053; 82140; 85027

== ENCOUNTER 2025-01-29 10:38 | Inpatient (IN) | payer OTHER ==
[2025-01-29 11:09] VITALS: BMI 27.4
[2025-01-29] MEDS ORDERED: MAGNESIUM HYDROX 2400MG/30ML ORAL SUSPENSION 30 ML CUP PO PRN (11:22)
[2025-01-29] MEDS ORDERED: DICYCLOMINE HCL 10 MG CAPSULE PO PRN (11:22)
[2025-01-29] MEDS ORDERED: ACETAMINOPHEN 325 MG TABLET (FP) PO PRN (11:22)
[2025-01-29] MEDS ORDERED: IBUPROFEN 400 MG TABLET (FP) PO PRN (11:22)
[2025-01-29] MEDS ORDERED: BENZONATATE 200 MG CAPSULE PO PRN (11:22)
[2025-01-29] MEDS ORDERED: BENZOCAINE/MENTHOL (CHLORASEPTIC ) LOZENGE MM PRN (11:22)
[2025-01-29] MEDS ORDERED: NALOXONE (NARCAN) HCL 4 MG/0.1 ML SPRAY NS PRN (11:22)
[2025-01-29] MEDS ORDERED: ONDANSETRON *ODT* 4 MG TABLET SL PRN (11:22)
[2025-01-29] MEDS ORDERED: METHOCARBAMOL 500 MG TABLET PO PRN (11:22)
[2025-01-29] MEDS ORDERED: MAG HYDROX/AL HYDROX/SIMETH 30 ML UNIT-DOSE CUP PO PRN (11:22)
[2025-01-29] MEDS ORDERED: guaiFENesin 600 MG TABLET.ER (FP) PO PRN (11:22)
[2025-01-29] MEDS ORDERED: POLYETHYLENE GLYCOL (HEALTHYLAX) 3350 17 GM PACKET PO PRN (11:22)
[2025-01-29] MEDS ORDERED: LOPERAMIDE HCL 2 MG CAPSULE PO PRN (11:22)
[2025-01-29] MEDS ORDERED: IBUPROFEN 600 MG TABLET (FP) PO PRN (11:22)
[2025-01-29] MEDS ORDERED: BISMUTH SUBSALICYLATE 524 MG/30 ML PO PRN (11:22)
[2025-01-29] MEDS: hydrOXYzine PAMOATE 25 MG CAPSULE (FP) PO PRN (17:14)
[2025-01-29] MEDS: MELATONIN 5 MG TABLETS PO SCH (22:20)
[2025-01-29] MEDS: THIAMINE 100 MG TABLET PO SCH (22:20)
[2025-01-30] MEDS: PRENATAL VITAMINS W/ FOLIC ACID TABLET (FP) PO SCH (10:50)
[2025-01-30 11:25] VITALS: BP 117/78; PULSE 79; RESP 14; TEMP 98
[2025-01-30 11:43] LABS: MCHC 33.2 g/dl (32.3-36.5); MEAN CELL VOLUME 91.4 fl (79.0-92.2); MEAN PLT VOLUME 10.6 fl (9.4-12.4); RDW 13.8 % (12.1-15.9)
[2025-01-30 12:03] LABS: GLUCOSE,RANDOM 122 mg/dL (74-106); TOT PROT 6.4 g/dl (6.4-8.2)
[2025-01-30 12:04] LABS: CO2 27 mmol/L (21-32)
[2025-01-30 12:05] LABS: ALK PHOS 65 U/L (40-150)
[2025-01-30 12:08] LABS: SGOT/AST 34 U/L (5-34); SGPT/ALT 25 U/L (0-55)
[2025-01-30 12:09] LABS: CREATININE 1.02 mg/dL (0.55-1.3)
== END 2025-01-30 10:49 | disposition home or self-care (01) | DRG 774 ==
LOC: YASAS 10:38 → Y3N 11:59
PROVIDERS: ADMIT Neuromusculoskeletal Medicine & OMM; ATTEND Allergy & Immunology
PROC: HZ2ZZZZ Detoxification Services for Substance Abuse Treatment (ICD-10-PCS; principal; 2025-01-29)
DX: F10.20 Alcohol dependence, uncomplicated (principal); F14.20 Cocaine dependence, uncomplicated; F17.210 Nicotine dependence, cigarettes, uncomplicated; Z86.11 Personal history of tuberculosis
CPT/HCPCS: 36415; 80053; 80305; 80307; 85027; 86780